=== PATIENT | male | born 1940 | race Caucasian/White ===

== ENCOUNTER 2022-01-27 06:47 | Emergency (ER) | payer MEDICARE, BC ==
--- NOTE | 2022-01-27 07:19 | ERPHSYRPT ---
- History of Present Illness Time Seen by Provider: 01/27/22 07:19 Historian: patient, family Exam Limitations: no limitations Physician History: This is an 81-year-old obese white male patient of Dr. Rivera who for the last several weeks has had midline abdominal pain from the epigastrium to the infraumbilical region. It does not radiate into his back. He states that the pain is essentially midline. Intermittently, he has had this pain over the several weeks and intermittently there is been nauseated associated with it. Yesterday he had 2 episodes of vomiting. Patient has not had any fever. He denies shortness of breath. He denies chest pain. He does not have history of diarrhea with this pain. Patient's last colonoscopy was approximately 10 years ago. Patient has a history of hypertension, elevated cholesterol. He has no history of abdominal surgeries of any kind. Timing/Duration: week(s) (Several weeks) Activities at Onset: none Quality: sharpness, stabbing Abdominal Pain Onset Location: other Pain Radiation: no radiation (Midline) Severity of Pain-Max: moderate Severity of Pain-Current: moderate Modifying Factors: Improves With: vomiting (2 times yesterday) Associated Symptoms: vomiting (2 times yesterday) Previous symptoms: no prior history Allergies/Adverse Reactions: No Known Drug Allergies Allergy (Verified 01/27/22 07:30) Home Medications: Amlodipine Besylate 2.5 mg PO DAILY 01/27/22 [History] Bumetanide 2 mg PO BID 01/27/22 [History] Carvedilol 12.5 mg [Coreg 12.5 mg] 12.5 mg PO BID 01/27/22 [History] Dapagliflozin Propanediol [Farxiga] 5 mg PO DAILY 01/27/22 [History] Potassium Chloride 20 meq PO DAILY 01/27/22 [History] Ropinirole HCl 1 mg PO HS 01/27/22 [History] Rosuvastatin Calcium 20 mg PO DAILY 01/27/22 [History] Sacubitril/Valsartan [Entresto 24 mg-26 mg Tablet] 1 tab PO BID 01/27/22 [History] Zolpidem Tartrate 10 mg [Ambien 10 MG] 10 mg PO HS 01/27/22 [History] Travel Risk - International Travel Have you traveled outside of the country in past 3 weeks: No - Coronavirus Screening Are you exhibiting any of the following symptoms?: No Close contact with a COVID-19 positive Pt in past 14-21 Days: No - Review of Systems Constitutional: No Symptoms Eyes: No Symptoms Ears, Nose, & Throat: No Symptoms Respiratory: No Symptoms Cardiac: No Symptoms Abdominal/Gastrointestinal: Abdominal Pain, Nausea, Vomiting, No Diarrhea, No Constipation Genitourinary Symptoms: No Symptoms Musculoskeletal: No Symptoms Skin: No Symptoms Neurological: No Symptoms Psychological: No Symptoms Endocrine: No Symptoms Hematologic/Lymphatic: No Symptoms Immunological/Allergic: No Symptoms All Other Systems: Reviewed and Negative - Past Medical History Pertinent Past Medical History: Yes - Past Surgical History Past Surgical History: No - Nursing Vital Signs Nursing Vital Signs: Initial Vital Signs Temperature 96.3 F 01/27/22 07:13 Pulse Rate 70 01/27/22 07:13 Respiratory Rate 15 01/27/22 07:13 Blood Pressure 155/70 01/27/22 07:13 O2 Sat by Pulse Oximetry 100 01/27/22 07:13 Pain Scale Pain Intensity 8 - Physical Exam General Appearance: no apparent distress, alert, anxiety, obese Eye Exam: PERRL/EOMI, eyes nml inspection Ears, Nose, Throat Exam: normal ENT inspection, moist mucous membranes Neck Exam: normal inspection, non-tender, supple, full range of motion Respiratory Exam: normal breath sounds, lungs clear, airway intact, No chest tenderness, No respiratory distress Cardiovascular Exam: regular rate/rhythm, normal heart sounds, normal peripheral pulses Gastrointestinal/Abdomen Exam: soft, normal bowel sounds, tenderness, guarding (Midline abdomen), No rebound Rectal Exam: not done Back Exam: normal inspection, normal range of motion, No CVA tenderness, No vertebral tenderness Extremity Exam: normal inspection, normal range of motion, pelvis stable Neurologic Exam: alert, oriented x 3, cooperative, feather shaper II-XII nml as tested, normal mood/affect, nml cerebellar function, nml station & gait, sensation nml Skin Exam: normal color, warm, dry Lymphatic Exam: No adenopathy SpO2 Interpretation: normal O2 Delivery: Room Air Ordered Tests: Active Orders 24 hr Category Date Time Status IV Insertion STAT Care 01/27/22 07:37 Active ABDOMEN AND PELVIS W/0 CONTRAS [CT] Stat Exams 01/27/22 07:38 Completed AMYLASE Stat Lab 01/27/22 07:54 Completed CBC W DIFF Stat Lab 01/27/22 07:54 Completed CMP Stat Lab 01/27/22 07:54 Completed LIPASE Stat Lab 01/27/22 07:54 Completed Lactic Acid Stat Lab 01/27/22 07:37 Completed UA W/RFX CULTURE Stat Lab 01/27/22 07:54 Completed Medication Summary Generic Name Dose Route Start Last Admin Trade Name Freq PRN Reason Stop Dose Admin Sodium Chloride 1,000 mls @ 100 mls/hr 01/27/22 07:45 01/27/22 08:10 Sodium Chloride 0.9% 1000 Ml IV 02/26/22 07:44 100 mls/hr .Q10H KYRA Administration Discontinued Medications Generic Name Dose Route Start Last Admin Trade Name Freq PRN Reason Stop Dose Admin Hydromorphone HCl 1 mg 01/27/22 08:13 01/27/22 08:33 Hydromorphone 1 Mg/1ml Inj 1 Mg/Ml Syringe IV 01/27/22 08:14 1 mg STAT ONE Administration Hydromorphone HCl Confirm 01/27/22 08:31 Hydromorphone 1 Mg/1ml Inj 1 Mg/Ml Syringe Administered 01/27/22 08:32 Dose 1 mg .ROUTE .STK-MED ONE Ondansetron HCl 4 mg 01/27/22 07:37 01/27/22 08:09 Ondansetron Hcl 4 Mg/2 Ml Vial IV 01/27/22 07:38 4 mg STAT ONE Administration Ondansetron HCl Confirm 01/27/22 08:09 Ondansetron Hcl 4 Mg/2 Ml Vial Administered 01/27/22 08:10 Dose 4 mg .ROUTE .STK-MED ONE Lab/Rad Data: Laboratory Result Diagrams 01/27/22 07:54 01/27/22 07:54 Laboratory Results 01/27/22 01/27/22 01/27/22 Range/Units 07:54 07:54 07:54 WBC 15.0 H (4.0-10.5) x10^3/uL RBC 4.15 (4.1-5.6) x10^6/uL Hgb 12.7 (12.5-18.0) g/dL Hct 39.0 L (42-50) % MCV 94.0 (78-100) fL MCH 30.6 (26-32) pg MCHC 32.6 (32-36) g/dL RDW 13.2 (11.5-14.0) % Plt Count 245 (150-450) x10^3/uL MPV 9.2 (7.5-11.0) fL Gran % 87.9 H (36.0-66.0) % Immature Gran % (Auto) 0.4 (0.00-0.4) % Nucleat RBC Rel Count 0.0 (0.00-0.1) % Eos # (Auto) 0.11 (0-0.5) x10^3/uL Immature Gran # (Auto) 0.06 H (0.00-0.03) x10^3u/L Absolute Lymphs (auto) 0.88 L (1.0-4.6) x10^3/uL Absolute Monos (auto) 0.69 (0.0-1.3) x10^3/uL Absolute Nucleated RBC 0.00 (0.00-0.01) x10^3u/L Lymphocytes % 5.9 L (24.0-44.0) % Monocytes % 4.6 (0.0-12.0) % Eosinophils % 0.7 (0.00-5.0) % Basophils % 0.5 (0.0-0.4) % Absolute Granulocytes 13.21 H (1.4-6.9) x10^3/uL Basophils # 0.07 (0-0.4) x10^3/uL Sodium 138 (137-145) mmol/L Potassium 3.8 (3.5-5.1) mmol/L Chloride 103 (98-107) mmol/L Carbon Dioxide 21 L (22-30) mmol/L Anion Gap 17.6 H (5-15) MEQ/L BUN 54 H (9-20) mg/dL Creatinine 2.20 H (0.66-1.25) mg/dL Estimated GFR 30.8 ML/MIN Glucose 224 H (74-106) mg/dL Lactic Acid (0.4-2.0) Calcium 9.4 (8.4-10.2) mg/dL Total Bilirubin 1.20 (0.2-1.3) mg/dL AST 30 (17-59) U/L ALT 17 (0-50) U/L Alkaline Phosphatase 103 (38-126) U/L Serum Total Protein 7.3 (6.3-8.2) g/dL Albumin 4.3 (3.5-5.0) g/dL Amylase 100 (30-110) U/L Lipase 137 (23-300) U/L Urinalys Dipstick Clnc MAIN LAB Urine Color YELLOW (YELLOW) Urine Appearance CLEAR (CLEAR) Urine pH 5.5 (5-6) Ur Specific [place] 1.015 (1.005-1.025) POC Urine Protein Conf NEGATIVE (Negative) Urine Ketones NEGATIVE (NEGATIVE) Urine Nitrite NEGATIVE (NEGATIVE) Urine Bilirubin NEGATIVE (NEGATIVE) Urine Urobilinogen 0.2 (0-1) mg/dL Urine Leukocytes NEGATIVE (NEGATIVE) Urine WBC (Auto) NONE (0-5) /HPF Urine RBC (Auto) NONE (0-2) /HPF U Epithel Cells (Auto) NONE (FEW) /HPF Urine Bacteria (Auto) NONE (NEGATIVE) /HPF Urine RBC TRACE-LYSED (0-5) Omkar/ul Urine Mucus (Auto) SLIGHT (NEGATIVE) /HPF Ur Culture Indicated? NO Urine Glucose 500 (NEGATIVE) mg/dL 01/27/22 Range/Units 07:37 WBC (4.0-10.5) x10^3/uL RBC (4.1-5.6) x10^6/uL Hgb (12.5-18.0) g/dL Hct (42-50) % MCV (78-100) fL MCH (26-32) pg MCHC (32-36) g/dL RDW (11.5-14.0) % Plt Count (150-450) x10^3/uL MPV (7.5-11.0) fL Gran % (36.0-66.0) % Immature Gran % (Auto) (0.00-0.4) % Nucleat RBC Rel Count (0.00-0.1) % Eos # (Auto) (0-0.5) x10^3/uL Immature Gran # (Auto) (0.00-0.03) x10^3u/L Absolute Lymphs (auto) (1.0-4.6) x10^3/uL Absolute Monos (auto) (0.0-1.3) x10^3/uL Absolute Nucleated RBC (0.00-0.01) x10^3u/L Lymphocytes % (24.0-44.0) % Monocytes % (0.0-12.0) % Eosinophils % (0.00-5.0) % Basophils % (0.0-0.4) % Absolute Granulocytes (1.4-6.9) x10^3/uL Basophils # (0-0.4) x10^3/uL Sodium (137-145) mmol/L Potassium (3.5-5.1) mmol/L Chloride (98-107) mmol/L Carbon Dioxide (22-30) mmol/L Anion Gap (5-15) MEQ/L BUN (9-20) mg/dL Creatinine (0.66-1.25) mg/dL Estimated GFR ML/MIN Glucose (74-106) mg/dL Lactic Acid 1.2 (0.4-2.0) Calcium (8.4-10.2) mg/dL Total Bilirubin (0.2-1.3) mg/dL AST (17-59) U/L ALT (0-50) U/L Alkaline Phosphatase (38-126) U/L Serum Total Protein (6.3-8.2) g/dL Albumin (3.5-5.0) g/dL Amylase (30-110) U/L Lipase (23-300) U/L Urinalys Dipstick Clnc Urine Color (YELLOW) Urine Appearance (CLEAR) Urine pH (5-6) Ur Specific [place] (1.005-1.025) POC Urine Protein Conf (Negative) Urine Ketones (NEGATIVE) Urine Nitrite (NEGATIVE) Urine Bilirubin (NEGATIVE) Urine Urobilinogen (0-1) mg/dL Urine Leukocytes (NEGATIVE) Urine WBC (Auto) (0-5) /HPF Urine RBC (Auto) (0-2) /HPF U Epithel Cells (Auto) (FEW) /HPF Urine Bacteria (Auto) (NEGATIVE) /HPF Urine RBC (0-5) Omkar/ul Urine Mucus (Auto) (NEGATIVE) /HPF Ur Culture Indicated? Urine Glucose (NEGATIVE) mg/dL - Progress Progress: improved, pain not gone completely, re-examined Progress Note: 01/27/22 08:56 CAT scan of the abdomen pelvis without contrast shows a distended gallbladder with tiny gallstones/gravel. Indeterminate 2.5 x 4.0 cm left pelvic calcified soft tissue mass. Mild diffuse scattered vascular calcifications. No abdominal aortic aneurysm. Counseled pt/family regarding: lab results, diagnosis, need for follow-up, rad results - Departure Departure Disposition: Home Clinical Impression: Abdominal pain, Leukocytosis Condition: Stable Critical Care Time: No Referrals: LÓPEZ RIVERA [Primary Care Provider] - Follow up/PCP as directed Additional Instructions: Drink plenty of fluids. Take your medication as prescribed. Follow-up with Dr. Rivera for further evaluation and management including colonoscopy if indicated. Prescriptions: Ondansetron ODT 4 MG [Zofran Odt 4 mg] 4 mg PO Q6H PRN PRN #10 tablet PRN Reason: Vomiting Hydrocodone/APAP 5/325 [Lambert 5/325 mg] 1 each PO Q12H PRN PRN #6 tablet MDD 2 PRN Reason: Pain Ciprofloxacin [Cipro 500 MG] 500 mg PO BID #14 tablet Metronidazole 500 mg [Flagyl 500 MG] 500 mg PO TID #21 tablet
[2022-01-27] MEDS ORDERED: Zofran 4 MG/2 ML VIAL IV ONE (07:37)
[2022-01-27] MEDS ORDERED: Sodium Chloride 0.9% 1000 ML 1,000 ML IV SCH (07:45)
[2022-01-27 07:56] LABS: Absolute Neutrophil Ct (ANC) 13.21 x10^3/uL (1.4-6.9); Basophil (Absolute #) 0.07 x10^3/uL (0-0.4); Eosinophil % 0.7 % (0.00-5.0); Eosinophil (Absolute #) 0.11 x10^3/uL (0-0.5); Hemoglobin 12.7 g/dL (12.5-18.0); Lymphocyte (Absolute #) 0.88 x10^3/uL (1.0-4.6); Lymphocytes % 5.9 % (24.0-44.0); Mean Corpuscular Hemoglobin 30.6 pg (26-32); Mean Corpuscular Hgb Concent. 32.6 g/dL (32-36); Mean Platelet Volume 9.2 fL (7.5-11.0); Monocyte (Absolute #) 0.69 x10^3/uL (0.0-1.3); Monocytes % 4.6 % (0.0-12.0); Neutrophil % 87.9 % (36.0-66.0); Platelet Count 245 x10^3/uL (150-450); Red Blood Count 4.15 x10^6/uL (4.1-5.6); Red Cell Distribution Width 13.2 % (11.5-14.0)
[2022-01-27 08:03] LABS: Appearance CLEAR (CLEAR); Bilirubin NEGATIVE (NEGATIVE); Dipstick done @ ? MAIN LAB; Glucose 500 mg/dL (NEGATIVE); Ketones NEGATIVE (NEGATIVE); Nitrite NEGATIVE (NEGATIVE); Ph 5.5 (5-6); Protein,Urine Dip NEGATIVE (Negative); RBC TRACE-LYSED Ery/ul (0-5); Specific Gravity 1.015 (1.005-1.025); Urobilinogen 0.2 mg/dL (0-1)
[2022-01-27 08:05] LABS: Mucus SLIGHT /HPF (NEGATIVE)
[2022-01-27 08:06] LABS: Urine Cultured Indicated? NO
[2022-01-27] MEDS ORDERED: Zofran 4 MG/2 ML VIAL ONE (08:09)
[2022-01-27] MEDS ORDERED: Sodium Chloride 0.9% 1000 ML 1,000 ML ONE (08:09)
[2022-01-27] MEDS ORDERED: Hydromorphone 1 mg/ml Injection IV ONE (08:13)
[2022-01-27] MEDS ORDERED: Hydromorphone 1 mg/ml Injection ONE (08:31)
[2022-01-27 08:34] LABS: ALBUMIN 4.3 g/dL (3.5-5.0); ANION GAP 17.6 MEQ/L (5-15); BILIRUBIN,TOTAL 1.2 mg/dL (0.2-1.3); Calcium 9.4 mg/dL (8.4-10.2); Creatinine 1 2.2 mg/dL (0.66-1.25); EST GLOMERULAR FILTRATION RATE 30.8 ML/MIN; Potassium 3.8 mmol/L (3.5-5.1); Total Protein 7.3 g/dL (6.3-8.2)
[2022-01-27 08:42] VITALS: PULSE 67
--- NOTE | 2022-01-27 08:43 | XRAY ---
Indication: Abdomen and right hip pain following fall. Multiple contiguous axial images obtained through the abdomen and pelvis without contrast. Comparison: None Lung bases demonstrates scattered fibrosis/scarring and and a few calcified granulomas. Heart is not enlarged. Small distal paraesophageal calcified nodes. 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 Left pelvic inlet demonstrates a indeterminant 2.5 x 4.0 cm calcified soft tissue mass. Noncontrasted stomach and bowel loops appear nonobstructed. Scattered descending and sigmoid diverticulosis without diverticulitis. No free fluid/air. Gallbladder distended with tiny gallstones/gravel in the dependent portion. Tiny hepatic/splenic calcified granulomas and 2 left renal exophytic cysts largest 1.3 cm. Remaining liver, gallbladder, pancreas, spleen, adrenal glands, kidneys ureters, and bladder are unremarkable for noncontrast exam. Mild diffuse scattered vascular calcifications. No AAA. Osseous structures intact with osteopenia and moderate/advanced multilevel thoracolumbar degenerative spondylosis. Impression: 1. 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 2. Distended gallbladder with tiny gallstones/gravel. Sonogram may yield further information if clinically warranted. 3. Indeterminant 2.5 x 4.0 cm left pelvic calcified soft tissue mass. Outside comparison studies recommended if available. 4. Chronic findings including pulmonary fibrosis/scarring, colonic diverticulosis, left renal cysts, chronic bony findings, and old granulomatous disease.
[2022-01-27 09:13] VITALS: BP 147/65; O2SAT 95
== END 2022-01-27 09:25 | disposition home or self-care (01) ==
LOC: ED 06:47
DX: R10.13 Epigastric pain (principal); R10.33 Periumbilical pain; D72.829 Elevated white blood cell count, unspecified; R11.2 Nausea with vomiting, unspecified; I10 Essential (primary) hypertension; E78.5 Hyperlipidemia, unspecified; Z79.899 Other long term (current) drug therapy; Z79.891 Long term (current) use of opiate analgesic
CPT/HCPCS: 36415; 74176; 80053; 81015; 82150; 83605; 83690; 85025; 96374; 96375; 99284; J1170; J2405

== ENCOUNTER 2022-02-14 05:53 | Day surgery (SDC) | payer MEDICARE, BC ==
[2022-02-14] MEDS ORDERED: Lactated Ringers 1,000 ML IV SCH (06:00)
[2022-02-14] MEDS ORDERED: DIPRIVAN 200 MG/20 ML IV ONE (08:09)
[2022-02-14 08:53] VITALS: O2SAT 98
[2022-02-14 08:58] VITALS: BP 118/53; PULSE 77
--- NOTE | 2022-02-14 12:54 | OP ---
SURGERY DATE/TIME: 02/14/2022 0810 PREOPERATIVE DIAGNOSIS: Abdominal pain and diarrhea. POSTOPERATIVE DIAGNOSIS: Multiple small colon polyps. PROCEDURE: Colonoscopy with hot snare polypectomy and cold forceps biopsy. SURGEON: Dr. Vasyl Rivera. ANESTHESIA: MAC. Medications given by anesthesia department. HISTORY: The patient is an 81-year-old white male patient presenting now for colonoscopy. He reports he has been having abdominal pain and diarrhea. He feels it is likely secondary to the tainted peanut butter and he is actually getting better now. The patient was felt to need to have endoscopic evaluation. He was appraised of the risks of the procedure including the risk of perforation, phlebitis, untoward reaction to medication, bleeding and missed lesions. The patient verbalized his understanding and desired to have the procedure performed. DESCRIPTION OF PROCEDURE: The patient was given the medications by the anesthesia department. He had continuous pulse oximetry, ECG monitoring, intermittent blood pressure monitoring during the examination. He was placed in the left lateral decubitus position. A digital rectal examination was performed and revealed normal anal sphincter tone, no masses and normal prostate. The flexible Olympus pediatric colonoscope was used to intubate the rectum. A view of the colon was developed sequentially to the cecum. Upon insertion and withdrawal is noted multiple small polyps noted through the colon in the ascending and descending colon. These were removed using a combination of hot polypectomy snare and cold forceps biopsies. The scope was removed from the patient who tolerated the procedure well and was sent back to OP recovery in good condition. The prep was noted to be fair to good.
== END 2022-02-14 09:04 | disposition home or self-care (01) ==
LOC: SDC 05:53
PROVIDERS: ATTEND Family Medicine
DX: R10.84 Generalized abdominal pain (principal); D12.2 Benign neoplasm of ascending colon; D12.4 Benign neoplasm of descending colon; R19.7 Diarrhea, unspecified; E11.9 Type 2 diabetes mellitus without complications
CPT/HCPCS: 82947; 99100; J2704

== ENCOUNTER 2022-08-17 08:00 | Day surgery (SDC) | payer MEDICARE, BC ==
[2022-08-17] MEDS ORDERED: Depo-Medrol 40 MG/ML IM ONE (08:01)
[2022-08-17] MEDS ORDERED: BUPIVACAINE 0.5% VIAL IJ ONE (08:01)
[2022-08-17] MEDS ORDERED: XYLOCAINE-MPF 1% 5ML SDV IJ ONE (08:01)
--- NOTE | 2022-08-17 11:06 | XRAY ---
Indication: Bilateral greater trochanter bursa injection. Intraoperative fluoroscopy provided for 20 seconds. 2 digital spot image submitted for interpretation demonstrates needle tip projecting lateral to the left and right greater trochanters. Small amount of contrast injected for both needle tip placement. Correlate with intraoperative findings/report. Incidental bilateral total hip arthroplasty.
--- NOTE | 2022-08-17 11:58 | XRAY ---
20 seconds of fluoroscopy was used in surgery for a bilateral greater trochanteric bursa injection.
== END 2022-08-17 09:55 | disposition home or self-care (01) ==
LOC: SDC-PAIN 08:00
PROVIDERS: ATTEND Psychiatry & Neurology Pain Medicine
DX: M70.62 Trochanteric bursitis, left hip (principal); M70.61 Trochanteric bursitis, right hip; E11.9 Type 2 diabetes mellitus without complications; Z79.899 Other long term (current) drug therapy
CPT/HCPCS: 20610; 73521; 77002; 82947; J1030; Q9966

== ENCOUNTER 2022-09-14 10:22 | Day surgery (SDC) | payer MEDICARE, BC ==
[2022-09-14] MEDS ORDERED: Depo-Medrol 40 MG/ML IM ONE (10:23)
[2022-09-14] MEDS ORDERED: Sodium Chloride 0.9(Preservative Free) 10 ML IJ ONE (10:23)
[2022-09-14] MEDS ORDERED: LIDOCAINE HCL 1% 50 MG/5 ML VL PF IJ ONE (10:23)
--- NOTE | 2022-09-14 14:38 | XRAY ---
Indication: Right L4-S1 transforaminal KYM. Intraoperative fluoroscopy provided for 1 minute 16 seconds. 8 digital spot image submitted for interpretation demonstrates posterior needle tips projecting over the expected right L4 and L5 nerve roots. Small amount of contrast injected for needle tip placement. Correlate with intraoperative findings/report.
--- NOTE | 2022-09-14 14:56 | XRAY ---
1 minute 16 seconds of fluoroscopy was used in surgery for a right L4-S1 transforaminal KYM.
== END 2022-09-14 13:00 | disposition home or self-care (01) ==
LOC: SDC-PAIN 10:22
PROVIDERS: ATTEND Psychiatry & Neurology Pain Medicine
DX: M54.16 Radiculopathy, lumbar region (principal); E11.9 Type 2 diabetes mellitus without complications; Z79.899 Other long term (current) drug therapy
CPT/HCPCS: 64483; 64484; 72100; 77003; 82947; J1030; J2001; Q9966

== ENCOUNTER 2022-11-09 10:22 | Day surgery (SDC) | payer MEDICARE, BC ==
[2022-11-09] MEDS ORDERED: LIDOCAINE HCL 1% 50 MG/5 ML VL PF IJ ONE (10:23)
[2022-11-09] MEDS ORDERED: Sodium Chloride 0.9(Preservative Free) 10 ML IJ ONE (10:23)
[2022-11-09] MEDS ORDERED: Depo-Medrol 40 MG/ML IM ONE (10:23)
--- NOTE | 2022-11-09 12:35 | XRAY ---
Indication: Right L4-S1 transforaminal KYM. Intraoperative fluoroscopy provided for 48 seconds. 6 digital spot image submitted for interpretation demonstrates posterior needle tips projecting over the expected right L4 and L5 nerve roots. Small amount of contrast injected for needle tip placement. Correlate with intraoperative findings/report.
--- NOTE | 2022-11-09 12:37 | XRAY ---
48 seconds of fluoroscopy was used in surgery for a right L4-S1 transforaminal KYM.
[2022-11-09] MEDS ORDERED: Lactated Ringers 1,000 ML IV ONE (14:18)
== END 2022-11-09 12:09 | disposition home or self-care (01) ==
LOC: SDC-PAIN 10:22
PROVIDERS: ATTEND Psychiatry & Neurology Pain Medicine
DX: M54.16 Radiculopathy, lumbar region (principal); E11.9 Type 2 diabetes mellitus without complications; Z79.899 Other long term (current) drug therapy
CPT/HCPCS: 64483; 64484; 72100; 77003; 82947; J1030; J2001; Q9966

== ENCOUNTER 2023-01-04 13:57 | Day surgery (SDC) | payer MEDICARE, BC ==
[2023-01-04] MEDS ORDERED: LIDOCAINE HCL 1% 50 MG/5 ML VL PF IJ ONE (13:58)
[2023-01-04] MEDS ORDERED: Depo-Medrol 40 MG/ML IM ONE (13:58)
[2023-01-04] MEDS ORDERED: BUPIVACAINE 0.5% VIAL IJ ONE (13:58)
--- NOTE | 2023-01-04 17:10 | XRAY ---
Indication: Right L3-L5 transforaminal KYM. Intraoperative fluoroscopy provided for 50 seconds. 7 digital spot image submitted for interpretation demonstrates posterior needle tips projecting over the expected right L3 and L4 nerve roots. Small amount of contrast injected for needle tip placement. Correlate with intraoperative findings/report.
--- NOTE | 2023-01-04 17:12 | XRAY ---
50 seconds of fluoroscopy was used in surgery for a right L3-L5 transforaminal KYM.
== END 2023-01-04 16:40 | disposition home or self-care (01) ==
LOC: SDC-PAIN 13:57
PROVIDERS: ATTEND Psychiatry & Neurology Pain Medicine
DX: M54.16 Radiculopathy, lumbar region (principal); E11.9 Type 2 diabetes mellitus without complications; Z79.899 Other long term (current) drug therapy
CPT/HCPCS: 64483; 64484; 72100; 77003; 82947; J1030; J2001; Q9966

== ENCOUNTER 2023-05-03 06:54 | Day surgery (SDC) | payer MEDICARE, BC ==
[2023-05-03] MEDS ORDERED: Depo-Medrol 40 MG/ML IM ONE (06:55)
[2023-05-03] MEDS ORDERED: LIDOCAINE HCL 1% 50 MG/5 ML VL PF IJ ONE (06:55)
[2023-05-03] MEDS ORDERED: BUPIVACAINE 0.5% VIAL IJ ONE (06:55)
--- NOTE | 2023-05-03 10:26 | XRAY ---
Indication: Bilateral SI joint injection. Intraoperative fluoroscopy provided for 20 seconds. 5 digital spot images submitted for interpretation demonstrate posterior needle tip projecting over the expected left and right SI joint. Correlate with intraoperative findings/report. Incidental incompletely visualized bilateral hip arthroplasty.
--- NOTE | 2023-05-03 11:53 | XRAY ---
20 seconds of fluoroscopy was used in surgery for a bilateral sacroiliac joint injection.
== END 2023-05-03 09:15 | disposition home or self-care (01) ==
LOC: SDC-PAIN 06:54
PROVIDERS: ATTEND Psychiatry & Neurology Pain Medicine
DX: M46.1 Sacroiliitis, not elsewhere classified (principal); E11.9 Type 2 diabetes mellitus without complications; Z79.899 Other long term (current) drug therapy
CPT/HCPCS: 27096; 72202; 77002; 82947; G0260; J1030; J2001

== ENCOUNTER 2023-07-12 15:21 | Day surgery (SDC) | payer MEDICARE, BC ==
[2023-07-12] MEDS ORDERED: Depo-Medrol 40 MG/ML IM ONE (15:22)
[2023-07-12] MEDS ORDERED: BUPIVACAINE 0.5% VIAL IJ ONE (15:22)
[2023-07-12] MEDS ORDERED: LIDOCAINE HCL 1% 50 MG/5 ML VL PF IJ ONE (15:22)
--- NOTE | 2023-07-12 19:31 | XRAY ---
Indication: Right shoulder and subacromial bursa injection. Intraoperative fluoroscopy provided for 35 seconds. 3 digital spot image submitted for interpretation demonstrates needle tip projecting over the right glenohumeral joint superiorly. Second needle tip subacromial. Small amount of contrast injected for both needle tip placement. Correlate with intraoperative findings/report. Incidental incompletely visualized right pacemaker.
--- NOTE | 2023-07-13 09:43 | XRAY ---
35 seconds of fluoroscopy was used in surgery for a right intra-articular shoulder and subacromial bursa injection.
== END 2023-07-12 17:54 | disposition home or self-care (01) ==
LOC: SDC-PAIN 15:21
PROVIDERS: ATTEND Psychiatry & Neurology Pain Medicine
DX: M19.011 Primary osteoarthritis, right shoulder (principal); M75.51 Bursitis of right shoulder; E11.9 Type 2 diabetes mellitus without complications; Z79.899 Other long term (current) drug therapy
CPT/HCPCS: 20610; 73030; 77002; 82947; J1030; J2001; Q9966

== ENCOUNTER 2023-08-30 12:33 | Emergency (ER) | payer MEDICARE, BC ==
[2023-08-30 12:59] VITALS: TEMP 98.2
[2023-08-30 13:08] LABS: BASOPHIL % 0.7 % (0.0-0.4); Basophil (Absolute #) 0.06 x10^3/uL (0-0.4); Eosinophil % 2.9 % (0.00-5.0); Eosinophil (Absolute #) 0.24 x10^3/uL (0-0.5); Hematocrit 34.5 % (42-50); Hemoglobin 11.2 g/dL (12.5-18.0); IMMATURE GRAN # 0.02 x10^3u/L (0.00-0.03); IMMATURE GRAN % 0.2 % (0.00-0.4); Lymphocyte (Absolute #) 1.11 x10^3/uL (1.0-4.6); Lymphocytes % 13.6 % (24.0-44.0); Mean Cell Volume 94.3 fL (78-100); Mean Corpuscular Hemoglobin 30.6 pg (26-32); Mean Corpuscular Hgb Concent. 32.5 g/dL (32-36); Mean Platelet Volume 9.9 fL (7.5-11.0); Monocyte (Absolute #) 0.64 x10^3/uL (0.0-1.3); Monocytes % 7.8 % (0.0-12.0); Neutrophil % 74.8 % (36.0-66.0); Platelet Count 165 x10^3/uL (150-450); Red Blood Count 3.66 x10^6/uL (4.1-5.6); Red Cell Distribution Width 13.5 % (11.5-14.0); White Blood Count 8.2 x10^3/uL (4.0-10.5)
[2023-08-30 13:23] LABS: INR 1.1 (0.8-3.0); PROTIME 11.9 SECONDS (9.4-12.5)
[2023-08-30 13:31] LABS: ALBUMIN 4.1 g/dL (3.5-5.0); ALKALINE PHOSPHATASE 82 U/L (38-126); CHLORIDE 95 mmol/L (98-107); Calcium 9.4 mg/dL (8.4-10.2); Carbon Dioxide 32 mmol/L (22-30); Creatinine 1 3.63 mg/dL (0.66-1.25); EST GLOMERULAR FILTRATION RATE 16.1 ML/MIN; Glucose 96 mg/dL (74-106); MAGNESIUM 2.2 mg/dL (1.6-2.3); NT PRO BNPII 8240 pg/mL (<300); Potassium 3.8 mmol/L (3.5-5.1); SGOT/AST 25 U/L (17-59); SGPT/ALT 19 U/L (0-50); SODIUM 136 mmol/L (137-145); Total Protein 6.9 g/dL (6.3-8.2)
--- NOTE | 2023-08-30 13:33 | ERPHSYRPT ---
- History of Present Illness Time Seen by Provider: 08/30/23 12:40 Source: patient, family, old records Exam Limitations: no limitations Patient Subjective Stated Complaint: Pt was in outpatient surgery for back injections by Dr Xavier when his blood sugar was found to be in the 40s, after a candy bar blood sugar went up to 120 per JOESPH Box. Patients blood pressure w as also found to be hypotensive, 76/40. Heart rate 60s-110s. Per JOESPH Box when heart rate would get into 110s pts left side of chest would "twitch", multiple ekgs were performed and it was suspected that defibrillator was firing. Pt brought to ED for further workup. Triage Nursing Assessment: Pt alert and oriented x3. Respirations easy/nonlabored. Pt denies any chest pain. Skin w/p/d. Accompanied by daughter. Pt heart rate ranging from 60s-110s, paced. Physician History: This is an 82-year-old white male patient who was brought down to the emergency department from the outpatient surgery department. He was scheduled therefore injections into his back and right shoulder for pain control by pain specialist Dr. Xavier. Patient's blood sugar was in the 40s. He also was noted to have blood pressure 76/40. His heart rate seem to run between 60 and 110 while down in the outpatient surgery clinic. However, the nurse noticed twitching of the left chest every time the heart rate went above 110 bpm. Because of the blood sugar, low blood pressure, and findings of the twitching in the left chest patient was brought to the emergency department for further evaluation management. Patient states that he did not feel any pain. He did not notice any twitching. However, when brought to his attention, he thought maybe there has been this twitching present even before his procedure today. Patient denies chest pain. He denies shortness of breath. Patient's daughter added additional, independent history. Patient's salvage clerk is Dr. Garzon. Dr. Adams placed the patient's pacemaker. Patient has a history of CHF and hypertension. Patient states he is on anticoagulation therapy. He does not recall the name of the medication. However, he stated they did not tell him to stop his anticoagulation therapy. Timing/Duration: today Activities at Onset: none Quality: other (Twitching left chest noted by nurse but not felt by patient per his report) Location: other (Left chest) Chest Pain Radiation: no radiation Severity of Pain-Max: none Severity of Pain-Current: none Nitro Today/Relief: no nitro taken today Aspirin Treatment Today: no aspirin today Associated Symptoms: denies symptoms Prior Chest Pain/Cardiac Workup: cardiac cath, echocardiography Allergies/Adverse Reactions: No Known Drug Allergies Allergy (Verified 08/30/23 12:46) Home Medications: Bumetanide 2 mg PO BID 01/27/22 [History] Carvedilol 12.5 mg [Coreg 12.5 mg] 12.5 mg PO BID 01/27/22 [History] Dapagliflozin Propanediol [Farxiga] 10 mg PO DAILY 01/27/22 [History] Potassium Chloride 20 meq PO DAILY 01/27/22 [History] Ropinirole HCl 1 mg PO HS 01/27/22 [History] Rosuvastatin Calcium 20 mg PO DAILY 01/27/22 [History] Sacubitril/Valsartan [Entresto 24 mg-26 mg Tablet] 1 tab PO BID 01/27/22 [History] Zolpidem Tartrate 10 mg [Ambien 10 MG] 10 mg PO HS 01/27/22 [History] Ascorbic Acid [Vitamin C] 1 tab PO DAILY 02/14/22 [History] Aspirin 81 gm Chew [Baby Aspirin 81 mg Chew] 1 tab PO DAILY 02/14/22 [History] Insulin Aspart [Novolog] 12 unit SQ UD 02/14/22 [History] Insulin Glargine,Hum.rec.anlog [Toujeo Max Solostar] 38 units SQ QHS 02/14/22 [History] Multivit-Min/FA/Lycopen/Lutein [Centrum Silver Tablet] 1 tab PO DAILY 02/14/22 [History] Gabapentin 600 mg PO TID 08/30/23 [History] Hydrocodone/Acetaminophen [Hydrocodone-Acetamin 7.5-325] 1 tab PO TID 08/30/23 [History] metOLazone [Metolazone] See Rx Instructions .ROUTE .COMPLEX 08/30/23 [History] Hx Tetanus, Diphtheria Vaccination/Date Given: Yes Hx Influenza Vaccination/Date Given: Yes Hx Pneumococcal Vaccination/Date Given: No Travel Risk - International Travel Have you traveled outside of the country in past 3 weeks: No - Coronavirus Screening Are you exhibiting any of the following symptoms?: No Close contact with a COVID-19 positive Pt in past 14-21 Days: No - Vaccine Status Have you recieved a Covid-19 vaccination: Yes 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 - Vaccination Dates Date of 2cond Vaccination (if applicable): 11/2020 - Review of Systems Constitutional: No Symptoms Eyes: No Symptoms Ears, Nose, & Throat: No Symptoms Respiratory: No Symptoms Cardiac: No Symptoms Abdominal/Gastrointestinal: No Symptoms Genitourinary Symptoms: No Symptoms Musculoskeletal: No Symptoms Skin: No Symptoms Neurological: No Symptoms Psychological: No Symptoms Endocrine: No Symptoms Hematologic/Lymphatic: No Symptoms Immunological/Allergic: No Symptoms All Other Systems: Reviewed and Negative - Past Medical History Pertinent Past Medical History: Yes Neurological History: No Pertinent History ENT History: No Pertinent History Cardiac History: High Cholesterol, Hypertension Respiratory History: CHF, Sleep Apnea Endocrine Medical History: Diabetes Type II Musculoskeletal History: Osteoarthritis GI Medical History: No Pertinent History History: Renal Disease Psycho-Social History: No Pertinent History Male Reproductive Disorders: No Pertinent History Other Medical History: melanoma, stage 4 kidney failure, - Past Surgical History Past Surgical History: Yes Neuro Surgical History: No Pertinent History Cardiac: Cardiac Stent, Internal Defibrillator, Pacemaker Respiratory: No Pertinent History Gastrointestinal: No Pertinent History Genitourinary: No Pertinent History Musculoskeletal: Joint Replacement Male Surgical History: No Pertinent History Other Surgical History: melanoma removal, kirsten total hips - Social History Smoking Status: Never smoker Exposure to second hand smoke: No Drug Use: none Patient Lives Alone: No - Nursing Vital Signs Nursing Vital Signs: Initial Vital Signs Temperature 98.2 F 08/30/23 12:37 Pulse Rate 112 H 08/30/23 12:37 Respiratory Rate 18 08/30/23 12:37 Blood Pressure 123/55 08/30/23 12:37 O2 Sat by Pulse Oximetry 96 08/30/23 12:37 Pain Scale Pain Intensity 0 - Physical Exam General Appearance: no apparent distress, alert, obese Eye Exam: PERRL/EOMI, eyes nml inspection Ears, Nose, Throat Exam: normal ENT inspection, moist mucous membranes Neck Exam: normal inspection, non-tender, supple, full range of motion Respiratory Exam: normal breath sounds, lungs clear, airway intact, No chest tenderness, No respiratory distress Cardiovascular Exam: regular rate/rhythm, normal heart sounds, normal peripheral pulses Gastrointestinal/Abdomen Exam: soft, normal bowel sounds, No tenderness Rectal Exam: not done Back Exam: normal inspection, normal range of motion, No CVA tenderness, No vertebral tenderness Extremity Exam: normal inspection, normal range of motion, pelvis stable Neurologic Exam: alert, oriented x 3, cooperative, gps field data collector II-XII nml as tested, normal mood/affect, nml cerebellar function, nml station & gait, sensation nml Skin Exam: normal color, warm, dry Lymphatic Exam: No adenopathy SpO2 Interpretation: normal SpO2: 96 O2 Delivery: Room Air - Course Nursing assessment & vital signs reviewed: Yes EKG Interpreted by Me: RATE ([id number]), Other (No evidence of any acute ischemia. EKG electronic readout shows AV dual paced complexes with some inhibition. There is biventricular paced rhythm.) Ordered Tests: Active Orders 24 hr Category Date Time Status EKG-ER Only STAT Care 08/30/23 12:49 Active IV Insertion STAT Care 08/30/23 12:48 Active IV Insertion-2nd Peripheral STAT Care 08/30/23 12:48 Active POCT Glucose Check STAT Care 08/30/23 13:15 Active Pulse Oximetry (ED) STAT Care 08/30/23 12:49 Active CBC W DIFF Stat Lab 08/30/23 12:49 Completed CMP Stat Lab 08/30/23 12:45 Completed MAGNESIUM Stat Lab 08/30/23 12:45 Completed NT PRO BNPII Stat Lab 08/30/23 12:45 Completed POCT GLUCOSE Stat Lab 08/30/23 11:05 Completed POCT GLUCOSE Stat Lab 08/30/23 11:08 Completed POCT GLUCOSE Stat Lab 08/30/23 11:39 Completed POCT GLUCOSE Stat Lab 08/30/23 12:38 Completed POCT GLUCOSE Stat Lab 08/30/23 13:47 Completed PROTIME WITH INR Stat Lab 08/30/23 12:45 Completed TROPONIN Q4H Lab 08/30/23 12:45 Completed TROPONIN Q4H Lab 08/30/23 17:00 Ordered TROPONIN Q4H Lab 08/30/23 21:00 Ordered EKG ONCE RT 08/30/23 12:35 Completed Lab/Rad Data: Laboratory Result Diagrams 08/30/23 12:49 08/30/23 12:45 Laboratory Results 12/20/23 12/20/23 12/20/23 Range/Units 13:47 12:49 12:45 WBC 8.2 (4.0-10.5) x10^3/uL RBC 3.66 L (4.1-5.6) x10^6/uL Hgb 11.2 L (12.5-18.0) g/dL Hct 34.5 L (42-50) % MCV 94.3 (78-100) fL MCH 30.6 (26-32) pg MCHC 32.5 (32-36) g/dL RDW 13.5 (11.5-14.0) % Plt Count 165 (150-450) x10^3/uL MPV 9.9 (7.5-11.0) fL Gran % 74.8 H (36.0-66.0) % Immature Gran % (Auto) 0.2 (0.00-0.4) % Nucleat RBC Rel Count 0.0 (0.00-0.1) % Eos # (Auto) 0.24 (0-0.5) x10^3/uL Immature Gran # (Auto) 0.02 (0.00-0.03) x10^3u/L Absolute Lymphs (auto) 1.11 (1.0-4.6) x10^3/uL Absolute Monos (auto) 0.64 (0.0-1.3) x10^3/uL Absolute Nucleated RBC 0.00 (0.00-0.01) x10^3u/L Lymphocytes % 13.6 L (24.0-44.0) % Monocytes % 7.8 (0.0-12.0) % Eosinophils % 2.9 (0.00-5.0) % Basophils % 0.7 (0.0-0.4) % Absolute Granulocytes 6.10 (1.4-6.9) x10^3/uL Basophils # 0.06 (0-0.4) x10^3/uL PT (9.4-12.5) SECONDS INR (0.8-3.0) Sodium (137-145) mmol/L Potassium (3.5-5.1) mmol/L Chloride (98-107) mmol/L Carbon Dioxide (22-30) mmol/L Anion Gap (5-15) MEQ/L BUN (9-20) mg/dL Creatinine (0.66-1.25) mg/dL Estimated GFR ML/MIN Glucose (74-106) mg/dL POC Glucometer 135 H (50 to 500) mg/dL Calcium (8.4-10.2) mg/dL Magnesium (1.6-2.3) mg/dL Total Bilirubin (0.2-1.3) mg/dL AST (17-59) U/L ALT (0-50) U/L Alkaline Phosphatase (38-126) U/L Troponin I 0.117 H* (0.000-0.034) ng/mL NT-Pro-B Natriuret Pep (<300) pg/mL Serum Total Protein (6.3-8.2) g/dL Albumin (3.5-5.0) g/dL 08/30/23 08/30/23 08/30/23 Range/Units 12:45 12:45 12:38 WBC (4.0-10.5) x10^3/uL RBC (4.1-5.6) x10^6/uL Hgb (12.5-18.0) g/dL Hct (42-50) % MCV (78-100) fL MCH (26-32) pg MCHC (32-36) g/dL RDW (11.5-14.0) % Plt Count (150-450) x10^3/uL MPV (7.5-11.0) fL Gran % (36.0-66.0) % Immature Gran % (Auto) (0.00-0.4) % Nucleat RBC Rel Count (0.00-0.1) % Eos # (Auto) (0-0.5) x10^3/uL Immature Gran # (Auto) (0.00-0.03) x10^3u/L Absolute Lymphs (auto) (1.0-4.6) x10^3/uL Absolute Monos (auto) (0.0-1.3) x10^3/uL Absolute Nucleated RBC (0.00-0.01) x10^3u/L Lymphocytes % (24.0-44.0) % Monocytes % (0.0-12.0) % Eosinophils % (0.00-5.0) % Basophils % (0.0-0.4) % Absolute Granulocytes (1.4-6.9) x10^3/uL Basophils # (0-0.4) x10^3/uL PT 11.9 (9.4-12.5) SECONDS INR 1.10 (0.8-3.0) Sodium 136 L (137-145) mmol/L Potassium 3.8 (3.5-5.1) mmol/L Chloride 95 L (98-107) mmol/L Carbon Dioxide 32 H (22-30) mmol/L Anion Gap 13.0 (5-15) MEQ/L BUN > 120 H (9-20) mg/dL Creatinine 3.63 H (0.66-1.25) mg/dL Estimated GFR 16.1 ML/MIN Glucose 96 (74-106) mg/dL POC Glucometer 92 (50 to 500) mg/dL Calcium 9.4 (8.4-10.2) mg/dL Magnesium 2.2 (1.6-2.3) mg/dL Total Bilirubin 0.80 (0.2-1.3) mg/dL AST 25 (17-59) U/L ALT 19 (0-50) U/L Alkaline Phosphatase 82 (38-126) U/L Troponin I (0.000-0.034) ng/mL NT-Pro-B Natriuret Pep 8240 (<300) pg/mL Serum Total Protein 6.9 (6.3-8.2) g/dL Albumin 4.1 (3.5-5.0) g/dL 08/30/23 08/30/23 08/30/23 Range/Units 11:39 11:08 11:05 WBC (4.0-10.5) x10^3/uL RBC (4.1-5.6) x10^6/uL Hgb (12.5-18.0) g/dL Hct (42-50) % MCV (78-100) fL MCH (26-32) pg MCHC (32-36) g/dL RDW (11.5-14.0) % Plt Count (150-450) x10^3/uL MPV (7.5-11.0) fL Gran % (36.0-66.0) % Immature Gran % (Auto) (0.00-0.4) % Nucleat RBC Rel Count (0.00-0.1) % Eos # (Auto) (0-0.5) x10^3/uL Immature Gran # (Auto) (0.00-0.03) x10^3u/L Absolute Lymphs (auto) (1.0-4.6) x10^3/uL Absolute Monos (auto) (0.0-1.3) x10^3/uL Absolute Nucleated RBC (0.00-0.01) x10^3u/L Lymphocytes % (24.0-44.0) % Monocytes % (0.0-12.0) % Eosinophils % (0.00-5.0) % Basophils % (0.0-0.4) % Absolute Granulocytes (1.4-6.9) x10^3/uL Basophils # (0-0.4) x10^3/uL PT (9.4-12.5) SECONDS INR (0.8-3.0) Sodium (137-145) mmol/L Potassium (3.5-5.1) mmol/L Chloride (98-107) mmol/L Carbon Dioxide (22-30) mmol/L Anion Gap (5-15) MEQ/L BUN (9-20) mg/dL Creatinine (0.66-1.25) mg/dL Estimated GFR ML/MIN Glucose (74-106) mg/dL POC Glucometer 122 H 60 L 46 L* (50 to 500) mg/dL Calcium (8.4-10.2) mg/dL Magnesium (1.6-2.3) mg/dL Total Bilirubin (0.2-1.3) mg/dL AST (17-59) U/L ALT (0-50) U/L Alkaline Phosphatase (38-126) U/L Troponin I (0.000-0.034) ng/mL NT-Pro-B Natriuret Pep (<300) pg/mL Serum Total Protein (6.3-8.2) g/dL Albumin (3.5-5.0) g/dL - Progress Progress: improved, re-examined Air Movement: good Progress Note: 08/30/23 13:31 This patient's medical issue is 1 of moderate to high complexity. The level of complexity in the workup performed is based on review of the patient's past medical history, review of the patient's medication list, review of the patient's drug allergy list, history of present illness and physical findings on examination. Workup includes placement of intravenous line, repeat twelve-lead EKG, troponin level, BNP level, CBC, CMP, magnesium level. 08/30/23 14:26 I reviewed and interpreted the patient's laboratory data results. This patient's troponin is elevated. The remainder of the laboratory data is nonacute or emergent. I spoke with Dr. Maldonado, the emergency room physician [facility]'s emergency department at this time. I reviewed the patient history, presenting complaint, history present illness and physical findings on examination as well as the reports of the laboratory data and twelve-lead EKG results. He accepts the patient in transfer. Blood Culture(s) Obtained: No Antibiotics given: No Counseled pt/family regarding: lab results, diagnosis Medical Desision Making - Independent Historian Additional History obtained from: Child (Patient's daughter) - Diagnostic Testing Diagnostic test were ordered, analyzed, and reviewed by me: Yes - Risk of complications The pt has a high risk of morbidity or mortality based on: Decision regarding hospitilization or escalation of hosp level of care - Departure Departure Disposition: Transfer Clinical Impression: Tachycardia, Hypotension, Hypoglycemia, Elevated troponin Condition: Fair Critical Care Time: Yes Critical Care Time(excluding separately billable procedures): Critical 30-74 mins Referrals: LÓPEZ DE GUZMAN [Primary Care Provider] - Follow up/PCP as directed
[2023-08-30 13:46] LABS: BLOOD UREA NITROGEN > 120 mg/dL (9-20)
[2023-08-30 13:58] VITALS: RESP 16
[2023-08-30 14:44] VITALS: BP 114/69; PULSE 71; O2SAT 95
== END 2023-08-30 14:57 | disposition short-term general hospital (02) ==
LOC: ED 12:33 → EDSTATUS 12:33 → ED 14:57
DX: I95.9 Hypotension, unspecified (principal); R00.0 Tachycardia, unspecified; E11.649 Type 2 diabetes mellitus with hypoglycemia without coma; R79.89 Other specified abnormal findings of blood chemistry; I13.0 Hypertensive heart and chronic kidney disease with heart failure and stage 1 through stage 4 chronic kidney disease, or unspecified chronic kidney disease; I50.9 Heart failure, unspecified; E11.22 Type 2 diabetes mellitus with diabetic chronic kidney disease; N18.4 Chronic kidney disease, stage 4 (severe); E78.5 Hyperlipidemia, unspecified; Z79.4 Long term (current) use of insulin; Z79.891 Long term (current) use of opiate analgesic
CPT/HCPCS: 36000; 36415; 80053; 82947; 83735; 83880; 84484; 85025; 85610; 93005; 94760; 99284; 99291

== ENCOUNTER 2023-09-13 08:46 | Day surgery (SDC) | payer MEDICARE, BC ==
[2023-09-13] MEDS ORDERED: Sodium Chloride 0.9(Preservative Free) 10 ML IJ ONE (08:47)
[2023-09-13] MEDS ORDERED: XYLOCAINE-MPF 1% 5ML SDV IJ ONE (08:47)
[2023-09-13] MEDS ORDERED: Decadron 4 MG INJ IV ONE (08:47)
--- NOTE | 2023-09-13 12:29 | XRAY ---
Indication: Right L4-S1 transforaminal KYM. Intraoperative fluoroscopy provided for 45 seconds. 6 digital spot images submitted for interpretation demonstrates posterior needle tips projecting over the expected right L4 and L5 nerve roots. Small amount of contrast injected for needle tip placement. Correlate with intraoperative findings/report.
--- NOTE | 2023-09-13 12:32 | XRAY ---
45 seconds of fluoroscopy was used in surgery for a right L4-S1 transforaminal KYM.
[2023-09-13] MEDS ORDERED: Lactated Ringers 1,000 ML IV ONE (13:31)
== END 2023-09-13 11:52 | disposition home or self-care (01) ==
LOC: SDC-PAIN 08:46
PROVIDERS: ATTEND Psychiatry & Neurology Pain Medicine
DX: M54.16 Radiculopathy, lumbar region (principal); E11.9 Type 2 diabetes mellitus without complications
CPT/HCPCS: 20553; 64483; 64484; 72100; 77003; 82947; J1100; Q9966

== ENCOUNTER 2023-09-15 16:15 | Inpatient (IN) | payer MEDICARE, BC ==
--- NOTE | 2023-09-15 16:26 | ERPHSYRPT ---
- History of Present Illness Source: patient Exam Limitations: no limitations Timing/Duration: today Severity: moderate Associated Symptoms: nausea, loss of appetite, weakness, No vomiting, No abdominal pain, No shortness of breath, No cough, No chest pain, No headaches Hx Tetanus, Diphtheria Vaccination/Date Given: Yes Hx Influenza Vaccination/Date Given: Yes Hx Pneumococcal Vaccination/Date Given: No <ENRIQUE RIDDLE - Last Filed: 09/15/23 19:03> <HOLDEN FLWOERS - Last Filed: 09/15/23 20:38> - History of Present Illness Time Seen by Provider: 09/15/23 16:25 Physician History: This is a morbidly obese 82-year-old white male patient of Dr. De Guzman who also sees collision estimator Dr. Vela and presents to the emergency department with a potassium level that was drawn this morning of 2.1. Patient has chronic renal failure but is not on dialysis. The labs that were drawn today were drawn for the purpose of meeting his collision estimator next week to discuss being placed on dialysis. Patient is on both Bumex and metolazone as diuretics. He is on potassium chloride supplementation 20 mill equivalents orally twice a day. Patient denies chest pain. He denies shortness of breath. He does have nausea and has body aches. Patient denies vomiting and diarrhea symptoms. He has not had a fever or cough. Patient's magnesium level this morning was measured at 2.6. Patient has a history of chronic renal failure not on dialysis, hyperlipidemia, coronary disease, hypertension and insulin-dependent diabetes. (ENRIQUE RIDDLE) Allergies/Adverse Reactions: No Known Drug Allergies Allergy (Verified 09/15/23 16:23) Home Medications: Bumetanide 4 mg PO DAILY 01/27/22 [History] Carvedilol 12.5 mg [Coreg 12.5 mg] 12.5 mg PO BID 01/27/22 [History] Dapagliflozin Propanediol [Farxiga] 10 mg PO DAILY 01/27/22 [History] Potassium Chloride 20 meq PO BID 01/27/22 [History] Ropinirole HCl 1 mg PO HS 01/27/22 [History] Rosuvastatin Calcium 20 mg PO HS 01/27/22 [History] Zolpidem Tartrate 10 mg [Ambien 10 MG] 10 mg PO HS PRN 01/27/22 [History] Ascorbic Acid [Vitamin C] 1 tab PO DAILY 02/14/22 [History] Insulin Aspart [Novolog] 15 unit SQ UD 02/14/22 [History] Insulin Glargine,Hum.rec.anlog [Toujeo Max Solostar] 45 units SQ QHS 02/14/22 [History] Multivit-Min/FA/Lycopen/Lutein [Centrum Silver Tablet] 1 tab PO DAILY 02/14/22 [History] Gabapentin 600 mg PO TID 08/30/23 [History] Hydrocodone/Acetaminophen [Hydrocodone-Acetamin 7.5-325] 1 tab PO TID 08/30/23 [History] metOLazone [Metolazone] 5 mg PO UD 08/30/23 [History] Bumetanide 2 mg PO LUNCH 09/15/23 [History] Vericiguat [Verquvo] 5 mg PO DAILY 09/15/23 [History] Travel Risk - International Travel Have you traveled outside of the country in past 3 weeks: No - Coronavirus Screening Are you exhibiting any of the following symptoms?: Yes Symptoms: Headaches/Body Aches/Fatigue Close contact with a COVID-19 positive Pt in past 14-21 Days: No - Vaccine Status Have you recieved a Covid-19 vaccination: Yes 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 - Vaccination Dates Date of 2cond Vaccination (if applicable): 11/2020 <ENRIQUE RIDDLE - Last Filed: 09/15/23 19:03> - Review of Systems Constitutional: Weakness Eyes: No Symptoms Ears, Nose, & Throat: No Symptoms Respiratory: No Symptoms Cardiac: No Symptoms Abdominal/Gastrointestinal: Nausea, Appetite Changes, No Abdominal Pain, No Vomiting, No Diarrhea, No Constipation Genitourinary Symptoms: No Symptoms Musculoskeletal: No Symptoms Skin: No Symptoms Neurological: No Symptoms Psychological: No Symptoms Endocrine: No Symptoms Hematologic/Lymphatic: No Symptoms Immunological/Allergic: No Symptoms <ENRIQUE RIDDLE - Last Filed: 09/15/23 19:03> - Past Medical History Pertinent Past Medical History: Yes Neurological History: No Pertinent History ENT History: No Pertinent History Cardiac History: High Cholesterol, Hypertension Respiratory History: CHF, Sleep Apnea Endocrine Medical History: Diabetes Type II Musculoskeletal History: Osteoarthritis GI Medical History: No Pertinent History History: Renal Disease Psycho-Social History: No Pertinent History Male Reproductive Disorders: No Pertinent History Other Medical History: melanoma, stage 4 kidney failure, - Past Surgical History Past Surgical History: Yes Neuro Surgical History: No Pertinent History Cardiac: Cardiac Stent, Internal Defibrillator, Pacemaker Respiratory: No Pertinent History Gastrointestinal: No Pertinent History Genitourinary: No Pertinent History Musculoskeletal: Joint Replacement Male Surgical History: No Pertinent History Other Surgical History: melanoma removal, kirsten total hips - Social History Smoking Status: Never smoker Exposure to second hand smoke: No Drug Use: none Patient Lives Alone: No <ENRIQUE RIDDLE - Last Filed: 09/15/23 19:03> - Physical Exam General Appearance: no apparent distress, alert, anxiety, obese Eye Exam: PERRL/EOMI, eyes nml inspection Ears, Nose, Throat Exam: normal ENT inspection, moist mucous membranes Neck Exam: normal inspection, non-tender, supple, full range of motion Respiratory Exam: normal breath sounds, lungs clear, airway intact, No chest tenderness, No respiratory distress Cardiovascular Exam: regular rate/rhythm, normal heart sounds, normal peripheral pulses Gastrointestinal/Abdomen Exam: soft, normal bowel sounds, No tenderness Rectal Exam: not done Back Exam: normal inspection, normal range of motion, No CVA tenderness, No vert ebral tenderness Extremity Exam: normal inspection, normal range of motion, pelvis stable Neurologic Exam: alert, oriented x 3, cooperative, golf technician II-XII nml as tested, normal mood/affect Skin Exam: normal color, warm, dry Lymphatic Exam: No adenopathy SpO2 Interpretation: normal O2 Delivery: Room Air <ENRIQUE RIDDLE - Last Filed: 09/15/23 19:03> - Nursing Vital Signs Nursing Vital Signs: Initial Vital Signs Temperature 95.9 F 09/15/23 16:23 Pulse Rate 98 H 09/15/23 16:23 Respiratory Rate 20 09/15/23 16:23 Blood Pressure 139/84 09/15/23 16:23 O2 Sat by Pulse Oximetry 98 09/15/23 16:23 Pain Scale Pain Intensity 6 - Course Nursing assessment & vital signs reviewed: Yes <ENRIQUE RIDDLE - Last Filed: 09/15/23 19:03> - Radiology Exams Chest X-ray Interpretation: Interpreted by me, No Pneumonia <HOLDEN FLOWERS - Last Filed: 09/15/23 20:38> Ordered Tests: Active Orders 24 hr Category Date Time Status EKG-ER Only STAT Care 09/15/23 17:14 Active IV Insertion STAT Care 09/15/23 17:14 Active Telemetry q4h Care 09/15/23 17:16 Active CHEST 1 VIEW (PORTABLE) Stat Exams 09/15/23 19:03 Completed BLOOD CULTURE Stat Lab 09/15/23 17:46 Received CBC W DIFF Stat Lab 09/15/23 17:00 Completed CMP Stat Lab 09/15/23 17:00 Completed CULTURE,URINE Stat Lab 09/15/23 17:00 Received MONO SCREEN Stat Lab 09/15/23 17:00 Completed TROPONIN Q4H Lab 09/15/23 17:00 Completed TROPONIN Q4H Lab 09/15/23 21:15 Ordered TROPONIN Q4H Lab 09/16/23 01:15 Ordered UA W/RFX UR CULTURE Stat Lab 09/15/23 17:00 Completed Medication Summary Generic Name Dose Route Start Last Admin Trade Name Freq PRN Reason Stop Dose Admin Sodium Chloride 1,000 mls @ 100 mls/hr 09/15/23 17:15 09/15/23 18:04 Sodium Chloride 0.9% 1000 Ml IV 10/15/23 17:14 100 mls/hr .Q10H KYRA Administration Discontinued Medications Generic Name Dose Route Start Last Admin Trade Name Freq PRN Reason Stop Dose Admin Hydromorphone HCl 1 mg 09/15/23 17:14 09/15/23 18:01 Hydromorphone 1 Mg/1ml Inj IV 09/15/23 17:15 1 mg STAT ONE Administration Hydromorphone HCl Confirm 09/15/23 17:56 Hydromorphone 1 Mg/1ml Inj Administered 09/15/23 17:57 Dose 1 mg .ROUTE .STK-MED ONE Potassium Chloride 20 meq in 100 mls @ 50 mls/hr 09/15/23 17:15 09/15/23 18:08 Potassium Chloride 20 Meq In Water 100ml IV 09/15/23 19:14 50 mls/hr STAT ONE Administration Potassium Chloride Confirm 09/15/23 17:56 Potassium Chloride 20 Meq In Water 100ml Administered 09/15/23 17:57 Dose 100 mls @ ud IV .STK-MED ONE Ondansetron HCl 4 mg 09/15/23 17:14 09/15/23 18:00 Ondansetron Hcl 4 Mg/2 Ml Vial IV 09/15/23 17:15 4 mg STAT ONE Administration Ondansetron HCl Confirm 09/15/23 17:55 Ondansetron Hcl 4 Mg/2 Ml Vial Administered 09/15/23 17:56 Dose 4 mg .ROUTE .STK-MED ONE Potassium Chloride 20 meq 09/15/23 17:15 09/15/23 18:03 Potassium Chloride Tab 10 Meq Tab PO 09/15/23 17:16 20 meq STAT ONE Administration Potassium Chloride Confirm 09/15/23 17:55 Potassium Chloride Tab 10 Meq Tab Administered 09/15/23 17:56 Dose 20 meq PO .STK-MED ONE Lab/Rad Data: Laboratory Result Diagrams 09/15/23 17:00 09/15/23 17:00 Laboratory Results 09/15/23 09/15/23 09/15/23 Range/Units 17:48 17:00 17:00 WBC (4.0-10.5) x10^3/uL RBC (4.1-5.6) x10^6/uL Hgb (12.5-18.0) g/dL Hct (42-50) % MCV (78-100) fL MCH (26-32) pg MCHC (32-36) g/dL RDW (11.5-14.0) % Plt Count (150-450) x10^3/uL MPV (7.5-11.0) fL Gran % (36.0-66.0) % Immature Gran % (Auto) (0.00-0.4) % Nucleat RBC Rel Count (0.00-0.1) % Eos # (Auto) (0-0.5) x10^3/uL Immature Gran # (Auto) (0.00-0.03) x10^3u/L Absolute Lymphs (auto) (1.0-4.6) x10^3/uL Absolute Monos (auto) (0.0-1.3) x10^3/uL Absolute Nucleated RBC (0.00-0.01) x10^3u/L Lymphocytes % (24.0-44.0) % Monocytes % (0.0-12.0) % Eosinophils % (0.00-5.0) % Basophils % (0.0-0.4) % Absolute Granulocytes (1.4-6.9) x10^3/uL Basophils # (0-0.4) x10^3/uL Sodium (137-145) mmol/L Potassium (3.5-5.1) mmol/L Chloride (98-107) mmol/L Carbon Dioxide (22-30) mmol/L Anion Gap (5-15) MEQ/L BUN (9-20) mg/dL Creatinine (0.66-1.25) mg/dL Estimated GFR ML/MIN Glucose (74-106) mg/dL Calcium (8.4-10.2) mg/dL Total Bilirubin (0.2-1.3) mg/dL AST (17-59) U/L ALT (0-50) U/L Alkaline Phosphatase (38-126) U/L Troponin I 0.658 H* (0.000-0.034) ng/mL Serum Total Protein (6.3-8.2) g/dL Albumin (3.5-5.0) g/dL Urine Color (Yellow) Urine Appearance (Clear) Urine pH (4.6-8.0) Ur Specific Benton (1.005-1.030) Urine Protein (Negative) Urine Glucose (UA) (Negative) mg/dL Urine Ketones (Negative) Urine Blood (Negative) Urine Nitrite (Negative) Urine Bilirubin (Negative) Urine Urobilinogen (0.2) mg/dL Ur Leukocyte Esterase (Negative) U Hyaline Cast (Auto) (0-2) /LPF Urine Microscopic RBC (0-5) /HPF Urine Microscopic WBC (0-5) /HPF Ur Epithelial Cells (None Seen) /HPF Urine Bacteria (None Seen) /HPF Urine Culture Reflexed (NO) Monoscreen NEGATIVE (NEGATIVE) Influenza Type A Ag NEGATIVE (NEGATIVE) Influenza Type B Ag NEGATIVE (NEGATIVE) RSV (PCR) NEGATIVE (NEGATIVE) SARS-CoV-2 (PCR) NEGATIVE (NEGATIVE) 09/15/23 09/15/23 09/15/23 Range/Units 17:00 17:00 17:00 WBC 14.8 H (4.0-10.5) x10^3/uL RBC 4.16 (4.1-5.6) x10^6/uL Hgb 13.1 (12.5-18.0) g/dL Hct 37.1 L (42-50) % MCV 89.2 (78-100) fL MCH 31.5 (26-32) pg MCHC 35.3 (32-36) g/dL RDW 12.8 (11.5-14.0) % Plt Count 218 (150-450) x10^3/uL MPV 10.5 (7.5-11.0) fL Gran % 83.8 H (36.0-66.0) % Immature Gran % (Auto) 0.4 (0.00-0.4) % Nucleat RBC Rel Count 0.0 (0.00-0.1) % Eos # (Auto) 0.04 (0-0.5) x10^3/uL Immature Gran # (Auto) 0.06 H (0.00-0.03) x10^3u/L Absolute Lymphs (auto) 1.24 (1.0-4.6) x10^3/uL Absolute Monos (auto) 1.03 (0.0-1.3) x10^3/uL Absolute Nucleated RBC 0.00 (0.00-0.01) x10^3u/L Lymphocytes % 8.4 L (24.0-44.0) % Monocytes % 7.0 (0.0-12.0) % Eosinophils % 0.3 (0.00-5.0) % Basophils % 0.1 (0.0-0.4) % Absolute Granulocytes 12.42 H (1.4-6.9) x10^3/uL Basophils # 0.01 (0-0.4) x10^3/uL Sodium 132 L (137-145) mmol/L Potassium 2.3 L* (3.5-5.1) mmol/L Chloride 84 L (98-107) mmol/L Carbon Dioxide 33 H (22-30) mmol/L Anion Gap 17.6 H (5-15) MEQ/L BUN 157 H (9-20) mg/dL Creatinine 3.28 H (0.66-1.25) mg/dL Estimated GFR 18.2 ML/MIN Glucose 165 H (74-106) mg/dL Calcium 10.1 (8.4-10.2) mg/dL Total Bilirubin 0.90 (0.2-1.3) mg/dL AST 53 (17-59) U/L ALT 34 (0-50) U/L Alkaline Phosphatase 94 (38-126) U/L Troponin I (0.000-0.034) ng/mL Serum Total Protein 8.0 (6.3-8.2) g/dL Albumin 4.7 (3.5-5.0) g/dL Urine Color Yellow (Yellow) Urine Appearance Clear (Clear) Urine pH 6.0 (4.6-8.0) Ur Specific Benton 1.010 (1.005-1.030) Urine Protein Negative (Negative) Urine Glucose (UA) 100 A (Negative) mg/dL Urine Ketones Negative (Negative) Urine Blood Small A (Negative) Urine Nitrite Negative (Negative) Urine Bilirubin Negative (Negative) Urine Urobilinogen 0.2 (0.2) mg/dL Ur Leukocyte Esterase Moderate A (Negative) U Hyaline Cast (Auto) 3-5 A (0-2) /LPF Urine Microscopic RBC 0-2 (0-5) /HPF Urine Microscopic WBC 3-5 (0-5) /HPF Ur Epithelial Cells None Seen (None Seen) /HPF Urine Bacteria None Seen (None Seen) /HPF Urine Culture Reflexed YES (NO) Monoscreen (NEGATIVE) Influenza Type A Ag (NEGATIVE) Influenza Type B Ag (NEGATIVE) RSV (PCR) (NEGATIVE) SARS-CoV-2 (PCR) (NEGATIVE) - Progress Progress: improved, pain not gone completely Counseled pt/family regarding: lab results, diagnosis <ENRIQUE RIDDLE - Last Filed: 09/15/23 19:03> - Progress Will see patient in: other (Spoke with Dr. Tee - obs.) <HOLDEN FLOWERS - Last Filed: 09/15/23 20:38> - Progress Progress Note: 09/15/23 17:45 This patient's medical issue is 1 of moderate to high complexity. The level of complexity in the workup performed is based on review of the patient's past medical history, review of the patient's medication list, review of the patient's drug allergy list, history of present illness and physical findings on examination. The workup includes placement of an intravenous line, infusion of potassium chloride, oral potassium chloride, CBC, CMP, magnesium level, urinalysis, troponin level and twelve-lead EKG. 09/15/23 19:03 I am transferring care of this patient to Dr. Flowers at shift change. He will follow-up on the outstanding laboratory and radiographic study results and make final disposition. The patient and family will sign a DNR. They want to stay here at this facility for further care and management. (ENRIQUE RIDDLE) - Departure Departure Disposition: Observation Critical Care Time: No <ENRIQUE RIDDLE - Last Filed: 09/15/23 19:03> <HOLDEN FLOWERS - Last Filed: 09/15/23 20:38> - Departure Clinical Impression: Hypokalemia, Renal failure Condition: Fair Referrals: LÓPEZ DE GUZMAN [Primary Care Provider] - Follow up/PCP as directed
[2023-09-15] MEDS ORDERED: Hydromorphone 1 mg/ml Injection IV ONE (17:14)
[2023-09-15] MEDS ORDERED: Zofran 4 MG/2 ML VIAL IV ONE (17:14)
[2023-09-15] MEDS ORDERED: POTASSIUM CHLORIDE 20 mEq IN WATER 100ML 20 MEQ/100 ML BAG IV ONE (17:15)
[2023-09-15] MEDS ORDERED: Klor Con PO ONE ×3 (17:15→22:22)
[2023-09-15 17:24] LABS: Absolute Neutrophil Ct (ANC) 12.42 x10^3/uL (1.4-6.9); BASOPHIL % 0.1 % (0.0-0.4); Basophil (Absolute #) 0.01 x10^3/uL (0-0.4); Eosinophil % 0.3 % (0.00-5.0); Eosinophil (Absolute #) 0.04 x10^3/uL (0-0.5); Hematocrit 37.1 % (42-50); Hemoglobin 13.1 g/dL (12.5-18.0); IMMATURE GRAN # 0.06 x10^3u/L (0.00-0.03); IMMATURE GRAN % 0.4 % (0.00-0.4); Lymphocyte (Absolute #) 1.24 x10^3/uL (1.0-4.6); Lymphocytes % 8.4 % (24.0-44.0); Mean Cell Volume 89.2 fL (78-100); Mean Corpuscular Hemoglobin 31.5 pg (26-32); Mean Corpuscular Hgb Concent. 35.3 g/dL (32-36); Mean Platelet Volume 10.5 fL (7.5-11.0); Monocyte (Absolute #) 1.03 x10^3/uL (0.0-1.3); Neutrophil % 83.8 % (36.0-66.0); Platelet Count 218 x10^3/uL (150-450); Red Blood Count 4.16 x10^6/uL (4.1-5.6); Red Cell Distribution Width 12.8 % (11.5-14.0); White Blood Count 14.8 x10^3/uL (4.0-10.5)
[2023-09-15 17:29] LABS: ALBUMIN 4.7 g/dL (3.5-5.0); ANION GAP 17.6 MEQ/L (5-15); BILIRUBIN,TOTAL 0.9 mg/dL (0.2-1.3); Calcium 10.1 mg/dL (8.4-10.2); Creatinine 1 3.28 mg/dL (0.66-1.25); EST GLOMERULAR FILTRATION RATE 18.2 ML/MIN
[2023-09-15 17:34] LABS: Appearance Clear (Clear); Bacteria None Seen /HPF (None Seen); Bilirubin Negative (Negative); Blood Small (Negative); Epithelial Cells None Seen /HPF (None Seen); Glucose, Urine 100 mg/dL (Negative); Ketones Negative (Negative); Leukocyte Esterase Moderate (Negative); Nitrite Negative (Negative); Protein,Urine Dip Negative (Negative); RBC 0-2 /HPF (0-5); Urobilinogen 0.2 mg/dL (0.2)
[2023-09-15 17:44] LABS: Potassium 2.3 mmol/L (3.5-5.1)
[2023-09-15 17:45] LABS: ADD URINE CULTURE? YES (NO)
[2023-09-15] MEDS ORDERED: Zofran 4 MG/2 ML VIAL ONE (17:55)
[2023-09-15] MEDS ORDERED: Hydromorphone 1 mg/ml Injection ONE (17:56)
[2023-09-15] MEDS ORDERED: POTASSIUM CHLORIDE 20 mEq IN WATER 100ML 100 ML IV ONE (17:56)
[2023-09-15] MEDS ORDERED: Sodium Chloride 0.9% 1000 ML 1,000 ML ONE (17:56)
[2023-09-15] MEDS: Sodium Chloride 0.9% 1000 ML 1,000 ML IV SCH (18:04)
[2023-09-15 18:30] LABS: INFLUENZA A NEGATIVE (NEGATIVE); INFLUENZA B NEGATIVE (NEGATIVE); RESPIRATORY SYNCTIAL VIRUS NEGATIVE (NEGATIVE); SARS-CoV-2 Xpert Express NEGATIVE (NEGATIVE)
--- NOTE | 2023-09-15 20:17 | XRAY ---
Indication: Leukocytosis. Comparison: February 10, 2022 Portable chest remains hyperinflated and clear. Heart not enlarged again with right pacemaker. Bony thorax intact again with osteopenia and mild degenerative changes. Impression: Continued nonacute chest with chronic features.
[2023-09-15] MEDS ORDERED: Sodium Chloride 0.9% 1000 ML 1,000 ML IV SCH (20:45)
[2023-09-15] MEDS ORDERED: TYLENOL 325 MG PO PRN (21:01)
--- NOTE | 2023-09-15 21:08 | PCM.HP ---
History of Present Illness - Chief Complaint Chief Complaint: renal failure; hypokalemia History of Present Illness: is a 82 year old male with history of DMII, HTN, CAD, CKD 5 here for abnormal labs - renal failure and low K. He has known CKD and is not yet on HD. He sees a trader. Tonight, he has no overt emergent symptom nor complaint. Has bodyache and nausea, but no chest pain, SOB, vomiting, diarrhea, seizure, syncope, dysuria, hematuria, flank pain. ER physician spoke to pt and his family. He is now a DNR and does not want dialysis. Family and pt are aware of the possible outcome. I am seeing the pt via telemedicine. I spoke with pt and his daughter. They did not rule out dialysis if needed. Pt states he would take dialysis if needed. They said they want to get stabilized and go see their trader, Dr Vela, and discussed HD - Review of Systems Constitutional: Fatigue, Malaise Eyes: No Symptoms Ears, Nose, & Throat: No Symptoms Respiratory: No Symptoms Cardiac: No Symptoms Abdominal/Gastrointestinal: Nausea Genitourinary Symptoms: No Symptoms Musculoskeletal: No Symptoms Skin: No Symptoms Neurological: No Symptoms Psychological: No Symptoms Hematologic/Lymphatic: No Symptoms Immunological/Allergic: No Symptoms Medications & Allergies Home Medications: Home Medication List Bumetanide 4 mg PO DAILY 01/27/22 [History Confirmed 09/15/23] Carvedilol 12.5 mg [Coreg 12.5 mg] 12.5 mg PO BID 01/27/22 [History Confirmed 09/15/23] Dapagliflozin Propanediol [Farxiga] 10 mg PO DAILY 01/27/22 [History Confirmed 09/15/23] Potassium Chloride 20 meq PO BID 01/27/22 [History Confirmed 09/15/23] Ropinirole HCl 1 mg PO HS 01/27/22 [History Confirmed 09/15/23] Rosuvastatin Calcium 20 mg PO HS 01/27/22 [History Confirmed 09/15/23] Zolpidem Tartrate 10 mg [Ambien 10 MG] 10 mg PO HS PRN 01/27/22 [History Confirmed 09/15/23] Ascorbic Acid [Vitamin C] 1 tab PO DAILY 02/14/22 [History Confirmed 09/15/23] Insulin Aspart [Novolog] 15 unit SQ UD 02/14/22 [History Confirmed 09/15/23] Insulin Glargine,Hum.rec.anlog [[place] Peguero Solostar] 45 units SQ QHS 02/14/22 [History Confirmed 09/15/23] Multivit-Min/FA/Lycopen/Lutein [Centrum Silver Tablet] 1 tab PO DAILY 02/14/22 [History Confirmed 09/15/23] Gabapentin 600 mg PO TID 08/30/23 [History Confirmed 09/15/23] Hydrocodone/Acetaminophen [Hydrocodone-Acetamin 7.5-325] 1 tab PO TID 08/30/23 [History Confirmed 09/15/23] metOLazone [Metolazone] 5 mg PO UD 08/30/23 [History Confirmed 09/15/23] Bumetanide 2 mg PO LUNCH 09/15/23 [History Confirmed 09/15/23] Vericiguat [Verquvo] 5 mg PO DAILY 09/15/23 [History Confirmed 09/15/23] Allergies/Adverse Reactions: Allergies Allergy/AdvReac Type Severity Reaction Status Date / Time No Known Drug Allergies Allergy Verified 09/15/23 16:23 - Past Medical History Past Medical History: Yes Neurological History: No Pertinent History ENT History: No Pertinent History Cardiac History: High Cholesterol, Hypertension Respiratory History: CHF, Sleep Apnea Endocrine Medical History: Diabetes Type II Musculoskelatal History: Osteoarthritis GI Medical History: No Pertinent History History: Renal Disease Pyscho-Social History: No Pertinent History Male Reproductive Disorders: No Pertinent History Comment: melanoma, stage 4 kidney failure, - Past Surgical History Past Surgical History: Yes Neuro Surgical History: No Pertinent History Cardiac History: Cardiac Stent, Internal Defibrillator, Pacemaker Respiratory Surgery: No Pertinent History GI Surgical History: No Pertinent History Genitourinary Surgical Hx: No Pertinent History Musculskeletal Surgical Hx: Joint Replacement Male Surgical History: No Pertinent History Other Surgical History: melanoma removal, kirsten total hips - Social History Smoking Status: Never smoker Exposure to second hand smoke: No Alcohol: Rarely Drug Use: none Significant Family History: no pertinent family hx - Physical Exam Vital Signs: Vital Signs - 24 hr Temp Pulse Resp BP BP Pulse Ox 09/15/23 20:30 78 18 134/93 97 09/15/23 19:30 68 11 L 129/81 97 09/15/23 19:01 67 14 156/78 100 09/15/23 18:30 91 H 9 L 135/103 99 09/15/23 18:00 88 11 L 140/75 96 09/15/23 17:59 81 19 09/15/23 17:50 77 9 L 09/15/23 17:40 79 10 L 09/15/23 17:32 75 8 L 09/15/23 17:00 67 18 143/90 09/15/23 16:23 95.9 F 98 H 20 139/84 98 General Appearance: no apparent distress Neurologic Exam: alert, oriented x 3, cooperative Eye Exam: PERRL/EOMI, eyes nml inspection Ears, Nose, Throat Exam: normal ENT inspection, pharynx normal, moist mucous membranes Neck Exam: normal inspection, non-tender, supple Respiratory Exam: normal breath sounds, lungs clear Cardiovascular Exam: regular rate/rhythm, normal heart sounds Gastrointestinal/Abdomen Exam: soft, normal bowel sounds Rectal Exam: deferred Back Exam: normal inspection, normal range of motion Extremity Exam: normal inspection Skin Exam: normal color, warm, dry Results - Labs Lab/Micro Results: Lab Results-Last 24 Hours 09/15/23 09/15/23 09/15/23 Range/Units 17:00 17:00 17:00 WBC 14.8 H (4.0-10.5) x10^3/uL RBC 4.16 (4.1-5.6) x10^6/uL Hgb 13.1 (12.5-18.0) g/dL Hct 37.1 L (42-50) % MCV 89.2 (78-100) fL MCH 31.5 (26-32) pg MCHC 35.3 (32-36) g/dL RDW 12.8 (11.5-14.0) % Plt Count 218 (150-450) x10^3/uL MPV 10.5 (7.5-11.0) fL Gran % 83.8 H (36.0-66.0) % Immature Gran % (Auto) 0.4 (0.00-0.4) % Nucleat RBC Rel Count 0.0 (0.00-0.1) % Eos # (Auto) 0.04 (0-0.5) x10^3/uL Immature Gran # (Auto) 0.06 H (0.00-0.03) x10^3u/L Absolute Lymphs (auto) 1.24 (1.0-4.6) x10^3/uL Absolute Monos (auto) 1.03 (0.0-1.3) x10^3/uL Absolute Nucleated RBC 0.00 (0.00-0.01) x10^3u/L Lymphocytes % 8.4 L (24.0-44.0) % Monocytes % 7.0 (0.0-12.0) % Eosinophils % 0.3 (0.00-5.0) % Basophils % 0.1 (0.0-0.4) % Absolute Granulocytes 12.42 H (1.4-6.9) x10^3/uL Basophils # 0.01 (0-0.4) x10^3/uL Sodium 132 L (137-145) mmol/L Potassium 2.3 L* (3.5-5.1) mmol/L Chloride 84 L (98-107) mmol/L Carbon Dioxide 33 H (22-30) mmol/L Anion Gap 17.6 H (5-15) MEQ/L BUN 157 H (9-20) mg/dL Creatinine 3.28 H (0.66-1.25) mg/dL Estimated GFR 18.2 ML/MIN Glucose 165 H (74-106) mg/dL Calcium 10.1 (8.4-10.2) mg/dL Total Bilirubin 0.90 (0.2-1.3) mg/dL AST 53 (17-59) U/L ALT 34 (0-50) U/L Alkaline Phosphatase 94 (38-126) U/L Troponin I (0.000-0.034) ng/mL Serum Total Protein 8.0 (6.3-8.2) g/dL Albumin 4.7 (3.5-5.0) g/dL Urine Color Yellow (Yellow) Urine Appearance Clear (Clear) Urine pH 6.0 (4.6-8.0) Ur Specific [place] 1.010 (1.005-1.030) Urine Protein Negative (Negative) Urine Glucose (UA) 100 A (Negative) mg/dL Urine Ketones Negative (Negative) Urine Blood Small A (Negative) Urine Nitrite Negative (Negative) Urine Bilirubin Negative (Negative) Urine Urobilinogen 0.2 (0.2) mg/dL Ur Leukocyte Esterase Moderate A (Negative) U Hyaline Cast (Auto) 3-5 A (0-2) /LPF Urine Microscopic RBC 0-2 (0-5) /HPF Urine Microscopic WBC 3-5 (0-5) /HPF Ur Epithelial Cells None Seen (None Seen) /HPF Urine Bacteria None Seen (None Seen) /HPF Urine Culture Reflexed YES (NO) Monoscreen (NEGATIVE) Influenza Type A Ag (NEGATIVE) Influenza Type B Ag (NEGATIVE) RSV (PCR) (NEGATIVE) SARS-CoV-2 (PCR) (NEGATIVE) 09/15/23 09/15/23 09/15/23 Range/Units 17:00 17:00 17:48 WBC (4.0-10.5) x10^3/uL RBC (4.1-5.6) x10^6/uL Hgb (12.5-18.0) g/dL Hct (42-50) % MCV (78-100) fL MCH (26-32) pg MCHC (32-36) g/dL RDW (11.5-14.0) % Plt Count (150-450) x10^3/uL MPV (7.5-11.0) fL Gran % (36.0-66.0) % Immature Gran % (Auto) (0.00-0.4) % Nucleat RBC Rel Count (0.00-0.1) % Eos # (Auto) (0-0.5) x10^3/uL Immature Gran # (Auto) (0.00-0.03) x10^3u/L Absolute Lymphs (auto) (1.0-4.6) x10^3/uL Absolute Monos (auto) (0.0-1.3) x10^3/uL Absolute Nucleated RBC (0.00-0.01) x10^3u/L Lymphocytes % (24.0-44.0) % Monocytes % (0.0-12.0) % Eosinophils % (0.00-5.0) % Basophils % (0.0-0.4) % Absolute Granulocytes (1.4-6.9) x10^3/uL Basophils # (0-0.4) x10^3/uL Sodium (137-145) mmol/L Potassium (3.5-5.1) mmol/L Chloride (98-107) mmol/L Carbon Dioxide (22-30) mmol/L Anion Gap (5-15) MEQ/L BUN (9-20) mg/dL Creatinine (0.66-1.25) mg/dL Estimated GFR ML/MIN Glucose (74-106) mg/dL Calcium (8.4-10.2) mg/dL Total Bilirubin (0.2-1.3) mg/dL AST (17-59) U/L ALT (0-50) U/L Alkaline Phosphatase (38-126) U/L Troponin I 0.658 H* (0.000-0.034) ng/mL Serum Total Protein (6.3-8.2) g/dL Albumin (3.5-5.0) g/dL Urine Color (Yellow) Urine Appearance (Clear) Urine pH (4.6-8.0) Ur Specific [place] (1.005-1.030) Urine Protein (Negative) Urine Glucose (UA) (Negative) mg/dL Urine Ketones (Negative) Urine Blood (Negative) Urine Nitrite (Negative) Urine Bilirubin (Negative) Urine Urobilinogen (0.2) mg/dL Ur Leukocyte Esterase (Negative) U Hyaline Cast (Auto) (0-2) /LPF Urine Microscopic RBC (0-5) /HPF Urine Microscopic WBC (0-5) /HPF Ur Epithelial Cells (None Seen) /HPF Urine Bacteria (None Seen) /HPF Urine Culture Reflexed (NO) Monoscreen NEGATIVE (NEGATIVE) Influenza Type A Ag NEGATIVE (NEGATIVE) Influenza Type B Ag NEGATIVE (NEGATIVE) RSV (PCR) NEGATIVE (NEGATIVE) SARS-CoV-2 (PCR) NEGATIVE (NEGATIVE) - Radiology Impressions Radiology Exams & Impressions: Radiology Procedures Category Date Time Status CHEST 1 VIEW (PORTABLE) Stat Exams 09/15/23 19:03 Completed Assessment/Plan (1) Hypokalemia Current Visit: Yes Status: Acute Assessment & Plan: K in the 2s, he is on diuretics, and has nausea and poor intake. So a combination of these. But we must replace K judiciously as to avoid over- shooting to high K, especially in setting of advance CKD. Mg was mid 2s. Will hold diuretic for now as he has no overt fluid overload sign/symptom. Code(s): E87.6 - HYPOKALEMIA (2) Renal failure Current Visit: Yes Status: Acute Qualifiers: Renal failure chronicity: acute on chronic Chronic kidney disease stage: stage 5, not on chronic dialysis Assessment & Plan: BUN 150s, Cr 3s. I think he may be a bit contracted/volume depleted with elevated bicarb and low BP. Holding diuretic for now. Continue NS but at a slower rate of 70ml/hr. Will monitor closely. Pt and family has not rule out HD as an option. What they want is to get him stable and be able to go home and see his trader next week to discuss HD options. As of now, there is no emergent indication to start HD: K is not high (he has low K), no severe acidosis (he is in fact contracted with an alkalosis), no fluid overload (e his on RA and comfortable, chest xray shows clear lungs), and he has no emergent uremia - no confusion, AMS, seizure. So, we can manage him medically tonight. If his numbers are worse tomorrow, he may have to be transferred to another facility to start HD. If his numbers are stable and improved, he can go home to follow-up with his trader as planned (3) Elevated troponin Current Visit: No Status: Acute Assessment & Plan: Trop 0.6, likely due to poor renal clearance rather than a true NSTEMI. Trops are cleared by the kidneys. He has no active chest pain. He is now DNR. We can follow a few more trops to be sure Code(s): R79.89 - OTHER SPECIFIED ABNORMAL FINDINGS OF BLOOD CHEMISTRY (4) Leukocytosis Current Visit: No Status: Acute Assessment & Plan: WBC 14, likely a stress response. CXR and UA clear. No fever. Monitor Code(s): D72.829 - ELEVATED WHITE BLOOD CELL COUNT, UNSPECIFIED Telemedicine Encounter - Telemedicine Encounter Telemedicine Encounter: The entirety of this encounter was performed via Telemedicine" The pt gave me verbal consent to have this telemedicine visit
[2023-09-15] MEDS ORDERED: NON-FORMULARY ITEM (Rosuvastatin Calcium [Rosuvastatin Calcium] 20 MG Tablet) PO SCH (22:00)
[2023-09-15] MEDS ORDERED: NON-FORMULARY ITEM (Potassium Chloride [Potassium Chloride] 20 MEQ Tab.Er.Prt) PO SCH (22:00)
[2023-09-15] MEDS ORDERED: NON-FORMULARY ITEM (Ropinirole Hcl [Ropinirole Hcl] 1 MG Tablet) PO SCH (22:00)
[2023-09-15] MEDS ORDERED: Requip 0.5 MG ONE (22:22)
[2023-09-15] MEDS: Requip 0.5 MG PO SCH (22:39)
[2023-09-15] MEDS: COREG 12.5 MG PO SCH (22:40)
[2023-09-15] MEDS: HEPARIN 5000 UNITS/0.5 ML (HIGH RISK MED) SQ SCH (22:40)
[2023-09-15] MEDS: HUMALOG SQ PRN (22:41)
[2023-09-15] MEDS: Sodium Chloride 0.9% 10 ML FLUSH Syringe IV SCH (22:54)
[2023-09-15] MEDS: Ambien 10 MG PO PRN (22:57)
[2023-09-16 02:15] LABS: Hematocrit 34.7 % (42-50); Hemoglobin 12.1 g/dL (12.5-18.0); Mean Cell Volume 89.2 fL (78-100); Mean Corpuscular Hemoglobin 31.1 pg (26-32); Mean Corpuscular Hgb Concent. 34.9 g/dL (32-36); Mean Platelet Volume 9.6 fL (7.5-11.0); Platelet Count 182 x10^3/uL (150-450); Red Blood Count 3.89 x10^6/uL (4.1-5.6); Red Cell Distribution Width 12.7 % (11.5-14.0); White Blood Count 11.9 x10^3/uL (4.0-10.5)
[2023-09-16 02:38] LABS: ALBUMIN 4.2 g/dL (3.5-5.0); ANION GAP 14.2 MEQ/L (5-15); BILIRUBIN,TOTAL 0.8 mg/dL (0.2-1.3); Calcium 9.5 mg/dL (8.4-10.2); Creatinine 1 2.96 mg/dL (0.66-1.25); EST GLOMERULAR FILTRATION RATE 20.6 ML/MIN; Total Protein 7.2 g/dL (6.3-8.2)
[2023-09-16 03:29] LABS: Potassium 1.9 mmol/L (3.5-5.1)
[2023-09-16] MEDS: SODIUM CHLORIDE 0.45% W/ 20 mEq KCL 1,000 ML IV SCH ×2 (04:11→18:48)
[2023-09-16] MEDS: POTASSIUM CHLORIDE 20 mEq IN WATER 100ML 20 MEQ/100 ML BAG IV SCH ×2 (04:16→06:09)
[2023-09-16] MEDS: Sodium Chloride 0.9% 10 ML FLUSH Syringe IV SCH ×2 (06:09→18:38)
[2023-09-16] MEDS: HUMALOG SQ PRN ×4 (09:28→22:49)
[2023-09-16] MEDS: HEPARIN 5000 UNITS/0.5 ML (HIGH RISK MED) SQ SCH ×2 (09:28→22:37)
[2023-09-16] MEDS: Klor Con PO SCH ×2 (09:28→22:37)
[2023-09-16] MEDS: COREG 12.5 MG PO SCH ×2 (09:29→22:38)
[2023-09-16] MEDS: THERAGRAN MULTIVITAMIN PO SCH (09:29)
[2023-09-16] MEDS: Vitamin C 500 MG PO SCH (09:29)
[2023-09-16] MEDS: NORCO 7.5/325 MG TAB PO PRN (10:16)
[2023-09-16] MEDS: POTASSIUM CHLORIDE 20 mEq IN WATER 100ML 100 ML IV SCH ×2 (10:31→12:17)
--- NOTE | 2023-09-16 12:52 | PCM.NOTE ---
Date and Time: 09/16/23 1244 Subjective Assessment: 09/16/23 is a 82 year old male with history of DMII, HTN, CAD, CKD 5 here for abnormal labs - renal failure and low K. He has known CKD and is not yet on HD. He sees a wearing apparel shaker- Dr. Vela and has a scheduled appointment for Monday. He came in with c/o body aches and nausea. He continues to c/o of body aches today. He does have chronic pain and takes norco and follow pain management for injections. COVID, flu, and RSV are all negative. He does not have a temp. Potassium is improving with replacement. Kidney function has improved today. Pt reports he does not have a good appetite but ate his entire breakfast. Daughter states pt is nauseous but pt reported he was not. Zofran added in case needed. Pt denies CP, SOB, Abd. pain, N/V/D. - Review of Systems Constitutional: No Fever, No Chills Eyes: No Symptoms Ears, Nose, & Throat: No Symptoms Respiratory: No Cough, No Short Of Breath Cardiac: No Chest Pain, No Edema, No Syncope Abdominal/Gastrointestinal: No Abdominal Pain, No Nausea, No Vomiting, No Diarrhea Genitourinary Symptoms: No Dysuria Musculoskeletal: Other (body aches), No Back Pain, No Neck Pain Skin: No Rash Neurological: No Dizziness, No Focal Weakness, No Sensory Changes Psychological: No Symptoms Endocrine: No Symptoms Hematologic/Lymphatic: No Symptoms Immunological/Allergic: No Symptoms Objective Exam General Appearance: no apparent distress, alert, obese Neurologic Exam: alert, oriented x 3, cooperative, normal mood/affect, nml cerebellar function, sensation nml, No motor deficits Skin Exam: normal color, warm, dry Wound Assessment: Skin/Wound Assessment Wound/Incision Assessment Start: 09/16/23 11:03 Text: Status: Active Freq: Protocol: Document 09/16/23 08:00 RB (Rec: 09/16/23 11:05 RB [id number]) Wound/Incision Assessment Left Medial Buttock Wound Assessment Shift Assessment Wound Type Pressure Ulcer Wound Stage Stage II Drainage Amount None Drainage Odor None/Absent General Appearance Open to air Surrounding Tissue Dark Red,Purple Comment open to air, barrier cream applied, will turn Q 2 hour Wound Photo Photo Taken No Eye Exam: PERRL, EOMI, eyes nml inspection Ears, Nose, Throat Exam: normal ENT inspection, pharynx normal, moist mucous membranes Neck Exam: normal inspection, non-tender, supple, full range of motion Respiratory Exam: normal breath sounds, lungs clear, No respiratory distress Cardiovascular Exam: regular rate/rhythm, normal heart sounds Gastrointestinal/Abdomen Exam: soft, No tenderness, No mass Extremity Exam: normal inspection, normal range of motion Back Exam: normal inspection, normal range of motion, No CVA tenderness, No vertebral tenderness Male Genitalia Exam: deferred Rectal Exam: deferred OBJECTIVE DATA Vital Signs: Vital Signs - 24 hr Temp Pulse Resp BP BP BP Pulse Ox 09/16/23 12:00 97.3 F 68 17 135/71 96 09/16/23 08:00 18 09/16/23 07:28 97.5 F 72 18 124/66 97 09/16/23 04:00 97.8 F 72 15 123/69 99 09/16/23 00:00 97.7 F 87 17 125/67 96 09/15/23 22:56 96 09/15/23 22:49 72 18 96 09/15/23 21:33 96.5 F 66 19 132/82 98 09/15/23 21:00 78 18 133/81 96 09/15/23 20:30 78 18 134/93 97 09/15/23 19:30 68 11 L 129/81 97 09/15/23 19:01 67 14 156/78 100 09/15/23 18:30 91 H 9 L 135/103 99 09/15/23 18:00 88 11 L 140/75 96 09/15/23 17:59 81 19 09/15/23 17:50 77 9 L 09/15/23 17:40 79 10 L 09/15/23 17:32 75 8 L 09/15/23 17:00 67 18 143/90 09/15/23 16:23 95.9 F 98 H 20 139/84 98 Pain Assessment - Last Documented Pain Intensity 6 Pain Scale Used 0-10 Pain Scale Intake and Output: Intake & Output 09/14/23 09/15/23 09/16/23 09/17/23 11:59 11:59 11:59 11:59 Intake Total 808 Output Total 250 Balance 558 Weight 115.8 kg Lab Results: Lab Results-Last 24 Hours 09/15/23 09/15/23 09/15/23 Range/Units 17:00 17:00 17:00 WBC 14.8 H (4.0-10.5) x10^3/uL RBC 4.16 (4.1-5.6) x10^6/uL Hgb 13.1 (12.5-18.0) g/dL Hct 37.1 L (42-50) % MCV 89.2 (78-100) fL MCH 31.5 (26-32) pg MCHC 35.3 (32-36) g/dL RDW 12.8 (11.5-14.0) % Plt Count 218 (150-450) x10^3/uL MPV 10.5 (7.5-11.0) fL Gran % 83.8 H (36.0-66.0) % Immature Gran % (Auto) 0.4 (0.00-0.4) % Nucleat RBC Rel Count 0.0 (0.00-0.1) % Eos # (Auto) 0.04 (0-0.5) x10^3/uL Immature Gran # (Auto) 0.06 H (0.00-0.03) x10^3u/L Absolute Lymphs (auto) 1.24 (1.0-4.6) x10^3/uL Absolute Monos (auto) 1.03 (0.0-1.3) x10^3/uL Absolute Nucleated RBC 0.00 (0.00-0.01) x10^3u/L Lymphocytes % 8.4 L (24.0-44.0) % Monocytes % 7.0 (0.0-12.0) % Eosinophils % 0.3 (0.00-5.0) % Basophils % 0.1 (0.0-0.4) % Absolute Granulocytes 12.42 H (1.4-6.9) x10^3/uL Basophils # 0.01 (0-0.4) x10^3/uL Sodium 132 L (137-145) mmol/L Potassium 2.3 L* (3.5-5.1) mmol/L Chloride 84 L (98-107) mmol/L Carbon Dioxide 33 H (22-30) mmol/L Anion Gap 17.6 H (5-15) MEQ/L BUN 157 H (9-20) mg/dL Creatinine 3.28 H (0.66-1.25) mg/dL Estimated GFR 18.2 ML/MIN Glucose 165 H (74-106) mg/dL POC Glucometer (74 to 106) mg/dL Calcium 10.1 (8.4-10.2) mg/dL Magnesium (1.6-2.3) mg/dL Total Bilirubin 0.90 (0.2-1.3) mg/dL AST 53 (17-59) U/L ALT 34 (0-50) U/L Alkaline Phosphatase 94 (38-126) U/L Troponin I (0.000-0.034) ng/mL Serum Total Protein 8.0 (6.3-8.2) g/dL Albumin 4.7 (3.5-5.0) g/dL Urine Color Yellow (Yellow) Urine Appearance Clear (Clear) Urine pH 6.0 (4.6-8.0) Ur Specific Starbuck 1.010 (1.005-1.030) Urine Protein Negative (Negative) Urine Glucose (UA) 100 A (Negative) mg/dL Urine Ketones Negative (Negative) Urine Blood Small A (Negative) Urine Nitrite Negative (Negative) Urine Bilirubin Negative (Negative) Urine Urobilinogen 0.2 (0.2) mg/dL Ur Leukocyte Esterase Moderate A (Negative) U Hyaline Cast (Auto) 3-5 A (0-2) /LPF Urine Microscopic RBC 0-2 (0-5) /HPF Urine Microscopic WBC 3-5 (0-5) /HPF Ur Epithelial Cells None Seen (None Seen) /HPF Urine Bacteria None Seen (None Seen) /HPF Urine Culture Reflexed YES (NO) Monoscreen (NEGATIVE) Influenza Type A Ag (NEGATIVE) Influenza Type B Ag (NEGATIVE) RSV (PCR) (NEGATIVE) SARS-CoV-2 (PCR) (NEGATIVE) 09/15/23 09/15/23 09/15/23 Range/Units 17:00 17:00 17:48 WBC (4.0-10.5) x10^3/uL RBC (4.1-5.6) x10^6/uL Hgb (12.5-18.0) g/dL Hct (42-50) % MCV (78-100) fL MCH (26-32) pg MCHC (32-36) g/dL RDW (11.5-14.0) % Plt Count (150-450) x10^3/uL MPV (7.5-11.0) fL Gran % (36.0-66.0) % Immature Gran % (Auto) (0.00-0.4) % Nucleat RBC Rel Count (0.00-0.1) % Eos # (Auto) (0-0.5) x10^3/uL Immature Gran # (Auto) (0.00-0.03) x10^3u/L Absolute Lymphs (auto) (1.0-4.6) x10^3/uL Absolute Monos (auto) (0.0-1.3) x10^3/uL Absolute Nucleated RBC (0.00-0.01) x10^3u/L Lymphocytes % (24.0-44.0) % Monocytes % (0.0-12.0) % Eosinophils % (0.00-5.0) % Basophils % (0.0-0.4) % Absolute Granulocytes (1.4-6.9) x10^3/uL Basophils # (0-0.4) x10^3/uL Sodium (137-145) mmol/L Potassium (3.5-5.1) mmol/L Chloride (98-107) mmol/L Carbon Dioxide (22-30) mmol/L Anion Gap (5-15) MEQ/L BUN (9-20) mg/dL Creatinine (0.66-1.25) mg/dL Estimated GFR ML/MIN Glucose (74-106) mg/dL POC Glucometer (74 to 106) mg/dL Calcium (8.4-10.2) mg/dL Magnesium (1.6-2.3) mg/dL Total Bilirubin (0.2-1.3) mg/dL AST (17-59) U/L ALT (0-50) U/L Alkaline Phosphatase (38-126) U/L Troponin I 0.658 H* (0.000-0.034) ng/mL Serum Total Protein (6.3-8.2) g/dL Albumin (3.5-5.0) g/dL Urine Color (Yellow) Urine Appearance (Clear) Urine pH (4.6-8.0) Ur Specific Starbuck (1.005-1.030) Urine Protein (Negative) Urine Glucose (UA) (Negative) mg/dL Urine Ketones (Negative) Urine Blood (Negative) Urine Nitrite (Negative) Urine Bilirubin (Negative) Urine Urobilinogen (0.2) mg/dL Ur Leukocyte Esterase (Negative) U Hyaline Cast (Auto) (0-2) /LPF Urine Microscopic RBC (0-5) /HPF Urine Microscopic WBC (0-5) /HPF Ur Epithelial Cells (None Seen) /HPF Urine Bacteria (None Seen) /HPF Urine Culture Reflexed (NO) Monoscreen NEGATIVE (NEGATIVE) Influenza Type A Ag NEGATIVE (NEGATIVE) Influenza Type B Ag NEGATIVE (NEGATIVE) RSV (PCR) NEGATIVE (NEGATIVE) SARS-CoV-2 (PCR) NEGATIVE (NEGATIVE) 09/15/23 09/15/23 09/16/23 Range/Units 21:27 21:50 02:13 WBC (4.0-10.5) x10^3/uL RBC (4.1-5.6) x10^6/uL Hgb (12.5-18.0) g/dL Hct (42-50) % MCV (78-100) fL MCH (26-32) pg MCHC (32-36) g/dL RDW (11.5-14.0) % Plt Count (150-450) x10^3/uL MPV (7.5-11.0) fL Gran % (36.0-66.0) % Immature Gran % (Auto) (0.00-0.4) % Nucleat RBC Rel Count (0.00-0.1) % Eos # (Auto) (0-0.5) x10^3/uL Immature Gran # (Auto) (0.00-0.03) x10^3u/L Absolute Lymphs (auto) (1.0-4.6) x10^3/uL Absolute Monos (auto) (0.0-1.3) x10^3/uL Absolute Nucleated RBC (0.00-0.01) x10^3u/L Lymphocytes % (24.0-44.0) % Monocytes % (0.0-12.0) % Eosinophils % (0.00-5.0) % Basophils % (0.0-0.4) % Absolute Granulocytes (1.4-6.9) x10^3/uL Basophils # (0-0.4) x10^3/uL Sodium (137-145) mmol/L Potassium (3.5-5.1) mmol/L Chloride (98-107) mmol/L Carbon Dioxide (22-30) mmol/L Anion Gap (5-15) MEQ/L BUN (9-20) mg/dL Creatinine (0.66-1.25) mg/dL Estimated GFR ML/MIN Glucose (74-106) mg/dL POC Glucometer 259 H (74 to 106) mg/dL Calcium (8.4-10.2) mg/dL Magnesium (1.6-2.3) mg/dL Total Bilirubin (0.2-1.3) mg/dL AST (17-59) U/L ALT (0-50) U/L Alkaline Phosphatase (38-126) U/L Troponin I 0.532 H* 0.511 H* (0.000-0.034) ng/mL Serum Total Protein (6.3-8.2) g/dL Albumin (3.5-5.0) g/dL Urine Color (Yellow) Urine Appearance (Clear) Urine pH (4.6-8.0) Ur Specific Starbuck (1.005-1.030) Urine Protein (Negative) Urine Glucose (UA) (Negative) mg/dL Urine Ketones (Negative) Urine Blood (Negative) Urine Nitrite (Negative) Urine Bilirubin (Negative) Urine Urobilinogen (0.2) mg/dL Ur Leukocyte Esterase (Negative) U Hyaline Cast (Auto) (0-2) /LPF Urine Microscopic RBC (0-5) /HPF Urine Microscopic WBC (0-5) /HPF Ur Epithelial Cells (None Seen) /HPF Urine Bacteria (None Seen) /HPF Urine Culture Reflexed (NO) Monoscreen (NEGATIVE) Influenza Type A Ag (NEGATIVE) Influenza Type B Ag (NEGATIVE) RSV (PCR) (NEGATIVE) SARS-CoV-2 (PCR) (NEGATIVE) 09/16/23 09/16/23 09/16/23 Range/Units 02:13 02:13 03:30 WBC 11.9 H (4.0-10.5) x10^3/uL RBC 3.89 L (4.1-5.6) x10^6/uL Hgb 12.1 L (12.5-18.0) g/dL Hct 34.7 L (42-50) % MCV 89.2 (78-100) fL MCH 31.1 (26-32) pg MCHC 34.9 (32-36) g/dL RDW 12.7 (11.5-14.0) % Plt Count 182 (150-450) x10^3/uL MPV 9.6 (7.5-11.0) fL Gran % (36.0-66.0) % Immature Gran % (Auto) (0.00-0.4) % Nucleat RBC Rel Count (0.00-0.1) % Eos # (Auto) (0-0.5) x10^3/uL Immature Gran # (Auto) (0.00-0.03) x10^3u/L Absolute Lymphs (auto) (1.0-4.6) x10^3/uL Absolute Monos (auto) (0.0-1.3) x10^3/uL Absolute Nucleated RBC (0.00-0.01) x10^3u/L Lymphocytes % (24.0-44.0) % Monocytes % (0.0-12.0) % Eosinophils % (0.00-5.0) % Basophils % (0.0-0.4) % Absolute Granulocytes (1.4-6.9) x10^3/uL Basophils # (0-0.4) x10^3/uL Sodium 133 L (137-145) mmol/L Potassium 1.9 L* (3.5-5.1) mmol/L Chloride 88 L (98-107) mmol/L Carbon Dioxide 33 H (22-30) mmol/L Anion Gap 14.2 (5-15) MEQ/L BUN 147 H (9-20) mg/dL Creatinine 2.96 H (0.66-1.25) mg/dL Estimated GFR 20.6 ML/MIN Glucose 264 H (74-106) mg/dL POC Glucometer (74 to 106) mg/dL Calcium 9.5 (8.4-10.2) mg/dL Magnesium 2.6 H (1.6-2.3) mg/dL Total Bilirubin 0.80 (0.2-1.3) mg/dL AST 47 (17-59) U/L ALT 32 (0-50) U/L Alkaline Phosphatase 82 (38-126) U/L Troponin I (0.000-0.034) ng/mL Serum Total Protein 7.2 (6.3-8.2) g/dL Albumin 4.2 (3.5-5.0) g/dL Urine Color (Yellow) Urine Appearance (Clear) Urine pH (4.6-8.0) Ur Specific Starbuck (1.005-1.030) Urine Protein (Negative) Urine Glucose (UA) (Negative) mg/dL Urine Ketones (Negative) Urine Blood (Negative) Urine Nitrite (Negative) Urine Bilirubin (Negative) Urine Urobilinogen (0.2) mg/dL Ur Leukocyte Esterase (Negative) U Hyaline Cast (Auto) (0-2) /LPF Urine Microscopic RBC (0-5) /HPF Urine Microscopic WBC (0-5) /HPF Ur Epithelial Cells (None Seen) /HPF Urine Bacteria (None Seen) /HPF Urine Culture Reflexed (NO) Monoscreen (NEGATIVE) Influenza Type A Ag (NEGATIVE) Influenza Type B Ag (NEGATIVE) RSV (PCR) (NEGATIVE) SARS-CoV-2 (PCR) (NEGATIVE) 09/16/23 09/16/23 09/16/23 Range/Units 06:57 10:00 12:17 WBC (4.0-10.5) x10^3/uL RBC (4.1-5.6) x10^6/uL Hgb (12.5-18.0) g/dL Hct (42-50) % MCV (78-100) fL MCH (26-32) pg MCHC (32-36) g/dL RDW (11.5-14.0) % Plt Count (150-450) x10^3/uL MPV (7.5-11.0) fL Gran % (36.0-66.0) % Immature Gran % (Auto) (0.00-0.4) % Nucleat RBC Rel Count (0.00-0.1) % Eos # (Auto) (0-0.5) x10^3/uL Immature Gran # (Auto) (0.00-0.03) x10^3u/L Absolute Lymphs (auto) (1.0-4.6) x10^3/uL Absolute Monos (auto) (0.0-1.3) x10^3/uL Absolute Nucleated RBC (0.00-0.01) x10^3u/L Lymphocytes % (24.0-44.0) % Monocytes % (0.0-12.0) % Eosinophils % (0.00-5.0) % Basophils % (0.0-0.4) % Absolute Granulocytes (1.4-6.9) x10^3/uL Basophils # (0-0.4) x10^3/uL Sodium (137-145) mmol/L Potassium 2.6 L* D (3.5-5.1) mmol/L Chloride (98-107) mmol/L Carbon Dioxide (22-30) mmol/L Anion Gap (5-15) MEQ/L BUN (9-20) mg/dL Creatinine (0.66-1.25) mg/dL Estimated GFR ML/MIN Glucose (74-106) mg/dL POC Glucometer 221 H 240 H (74 to 106) mg/dL Calcium (8.4-10.2) mg/dL Magnesium (1.6-2.3) mg/dL Total Bilirubin (0.2-1.3) mg/dL AST (17-59) U/L ALT (0-50) U/L Alkaline Phosphatase (38-126) U/L Troponin I (0.000-0.034) ng/mL Serum Total Protein (6.3-8.2) g/dL Albumin (3.5-5.0) g/dL Urine Color (Yellow) Urine Appearance (Clear) Urine pH (4.6-8.0) Ur Specific Starbuck (1.005-1.030) Urine Protein (Negative) Urine Glucose (UA) (Negative) mg/dL Urine Ketones (Negative) Urine Blood (Negative) Urine Nitrite (Negative) Urine Bilirubin (Negative) Urine Urobilinogen (0.2) mg/dL Ur Leukocyte Esterase (Negative) U Hyaline Cast (Auto) (0-2) /LPF Urine Microscopic RBC (0-5) /HPF Urine Microscopic WBC (0-5) /HPF Ur Epithelial Cells (None Seen) /HPF Urine Bacteria (None Seen) /HPF Urine Culture Reflexed (NO) Monoscreen (NEGATIVE) Influenza Type A Ag (NEGATIVE) Influenza Type B Ag (NEGATIVE) RSV (PCR) (NEGATIVE) SARS-CoV-2 (PCR) (NEGATIVE) 09/16/23 Range/Units 12:20 WBC (4.0-10.5) x10^3/uL RBC (4.1-5.6) x10^6/uL Hgb (12.5-18.0) g/dL Hct (42-50) % MCV (78-100) fL MCH (26-32) pg MCHC (32-36) g/dL RDW (11.5-14.0) % Plt Count (150-450) x10^3/uL MPV (7.5-11.0) fL Gran % (36.0-66.0) % Immature Gran % (Auto) (0.00-0.4) % Nucleat RBC Rel Count (0.00-0.1) % Eos # (Auto) (0-0.5) x10^3/uL Immature Gran # (Auto) (0.00-0.03) x10^3u/L Absolute Lymphs (auto) (1.0-4.6) x10^3/uL Absolute Monos (auto) (0.0-1.3) x10^3/uL Absolute Nucleated RBC (0.00-0.01) x10^3u/L Lymphocytes % (24.0-44.0) % Monocytes % (0.0-12.0) % Eosinophils % (0.00-5.0) % Basophils % (0.0-0.4) % Absolute Granulocytes (1.4-6.9) x10^3/uL Basophils # (0-0.4) x10^3/uL Sodium (137-145) mmol/L Potassium 2.9 L* (3.5-5.1) mmol/L Chloride (98-107) mmol/L Carbon Dioxide (22-30) mmol/L Anion Gap (5-15) MEQ/L BUN (9-20) mg/dL Creatinine (0.66-1.25) mg/dL Estimated GFR ML/MIN Glucose (74-106) mg/dL POC Glucometer (74 to 106) mg/dL Calcium (8.4-10.2) mg/dL Magnesium (1.6-2.3) mg/dL Total Bilirubin (0.2-1.3) mg/dL AST (17-59) U/L ALT (0-50) U/L Alkaline Phosphatase (38-126) U/L Troponin I (0.000-0.034) ng/mL Serum Total Protein (6.3-8.2) g/dL Albumin (3.5-5.0) g/dL Urine Color (Yellow) Urine Appearance (Clear) Urine pH (4.6-8.0) Ur Specific Starbuck (1.005-1.030) Urine Protein (Negative) Urine Glucose (UA) (Negative) mg/dL Urine Ketones (Negative) Urine Blood (Negative) Urine Nitrite (Negative) Urine Bilirubin (Negative) Urine Urobilinogen (0.2) mg/dL Ur Leukocyte Esterase (Negative) U Hyaline Cast (Auto) (0-2) /LPF Urine Microscopic RBC (0-5) /HPF Urine Microscopic WBC (0-5) /HPF Ur Epithelial Cells (None Seen) /HPF Urine Bacteria (None Seen) /HPF Urine Culture Reflexed (NO) Monoscreen (NEGATIVE) Influenza Type A Ag (NEGATIVE) Influenza Type B Ag (NEGATIVE) RSV (PCR) (NEGATIVE) SARS-CoV-2 (PCR) (NEGATIVE) Radiology Exams: Radiology Procedures Category Date Time Status CHEST 1 VIEW (PORTABLE) Stat Exams 09/15/23 19:03 Completed Assessment/Plan (1) Hypokalemia Current Visit: Yes Status: Acute Assessment & Plan: - Bumex and metolazone held - Zofran for N/V - K+ slowly improving- trend - repeat labs Q4 hr Code(s): E87.6 - HYPOKALEMIA (2) Renal failure Current Visit: Yes Status: Acute Qualifiers: Renal failure chronicity: acute on chronic Chronic kidney disease stage: stage 5, not on chronic dialysis Assessment & Plan: - Improving today- trend labs - Gentle hydration 1/2 NS with 20kcl @ 70 - Follows Dr. Vela for nephrology and has an appointment scheduled for Monday. (3) Elevated troponin Current Visit: No Status: Acute Assessment & Plan: - Trop 0.658, 0.532, 0.511 - denies CP - most likely 2:2 SAILAJA Code(s): R79.89 - OTHER SPECIFIED ABNORMAL FINDINGS OF BLOOD CHEMISTRY (4) Leukocytosis Current Visit: No Status: Acute Assessment & Plan: - WBC 11.9- improved - Most likely stress response, no fever - BC X2 pending Code(s): D72.829 - ELEVATED WHITE BLOOD CELL COUNT, UNSPECIFIED (5) Type II diabetes mellitus Current Visit: Yes Status: Acute Assessment & Plan: - Lantus 45 units at HS- held for now -Novolog 15 units with meals - Humalog S/S- low dose - A1C - pending (6) Obesity (BMI 30.0-34.9) Current Visit: Yes Status: Acute Assessment & Plan: - advised diet and exercise control VTE: Heparin Next of KIN: Esme Johnson [phone] D/C plan: tomorrow Code status: SCO/DNR Code(s): E66.9 - OBESITY, UNSPECIFIED
[2023-09-16] MEDS: Miralax Powder 17GM PACKET PO SCH (15:27)
[2023-09-16] MEDS ORDERED: Klor Con PO ONE ×2 (17:27→19:30)
[2023-09-16] MEDS ORDERED: Flomax 0.4 MG ONE (18:08)
[2023-09-16] MEDS: HUMALOG SQ SCH (18:10)
[2023-09-16] MEDS: Ambien 10 MG PO PRN (22:38)
[2023-09-16] MEDS: Requip 0.5 MG PO SCH (22:38)
[2023-09-16] MEDS: ZOCOR 20MG PO SCH (22:38)
[2023-09-17] MEDS: Sodium Chloride 0.9% 10 ML FLUSH Syringe IV SCH ×3 (01:08→15:22)
[2023-09-17] MEDS ORDERED: xanAX 0.25 MG PO ONE (02:44)
[2023-09-17] MEDS ORDERED: MAALOX ES 30 ML UNIT DOSE PO PRN (02:45)
[2023-09-17 03:14] LABS: Hematocrit 35.1 % (42-50); Hemoglobin 11.8 g/dL (12.5-18.0); Mean Cell Volume 92.4 fL (78-100); Mean Corpuscular Hemoglobin 31.1 pg (26-32); Mean Corpuscular Hgb Concent. 33.6 g/dL (32-36); Mean Platelet Volume 9.9 fL (7.5-11.0); Platelet Count 182 x10^3/uL (150-450); Red Cell Distribution Width 13.1 % (11.5-14.0)
[2023-09-17 03:34] LABS: ALBUMIN 3.9 g/dL (3.5-5.0); ANION GAP 14.7 MEQ/L (5-15); BILIRUBIN,TOTAL 0.9 mg/dL (0.2-1.3); Calcium 8.7 mg/dL (8.4-10.2); Creatinine 1 2.49 mg/dL (0.66-1.25); EST GLOMERULAR FILTRATION RATE 25.3 ML/MIN; Potassium 4.5 mmol/L (3.5-5.1); Total Protein 6.6 g/dL (6.3-8.2)
[2023-09-17] MEDS: NORCO 7.5/325 MG TAB PO PRN ×2 (07:35→20:12)
[2023-09-17] MEDS: Miralax Powder 17GM PACKET PO SCH (09:26)
[2023-09-17] MEDS: THERAGRAN MULTIVITAMIN PO SCH (09:27)
[2023-09-17] MEDS: Klor Con PO SCH ×2 (09:27→22:50)
[2023-09-17] MEDS: Vitamin C 500 MG PO SCH (09:28)
[2023-09-17] MEDS: COREG 12.5 MG PO SCH ×2 (09:28→22:51)
[2023-09-17] MEDS: HUMALOG SQ SCH ×3 (09:31→17:09)
[2023-09-17] MEDS: HEPARIN 5000 UNITS/0.5 ML (HIGH RISK MED) SQ SCH ×2 (09:37→22:50)
[2023-09-17] MEDS: SODIUM CHLORIDE 0.45% W/ 20 mEq KCL 1,000 ML IV SCH ×2 (09:39→22:59)
--- NOTE | 2023-09-17 10:05 | PCM.DS ---
Discharge Summary Date of Admission: 09/15/23 20:58 Date of Discharge: 09/17/23 Admitting Physician: ALESSANDRO SY DO Primary Care Provider: LÓPEZ DE GUZMAN Allergies Allergies No Known Drug Allergies Allergy (Verified 09/15/23 16:23) Hospital Summary - Hospital Course Hospital Course: 09/16/23 is a 82 year old male with history of DMII, HTN, CAD, CKD 5 here for abnormal labs - renal failure and low K. He has known CKD and is not yet on HD. He sees a follow up rep- Dr. Vela and has a scheduled appointment for Monday. He came in with c/o body aches and nausea. He continues to c/o of body aches today. He does have chronic pain and takes norco and follow pain management for injections. COVID, flu, and RSV are all negative. He does not have a temp. Potassium is improving with replacement. Kidney function has improved today. Pt reports he does not have a good appetite but ate his entire breakfast. Daughter states pt is nauseous but pt reported he was not. Zofran added in case needed. Pt denies CP, SOB, Abd. pain, N/V/D. Pt also noted that he has been using multiple OTC laxatives recently as he has been constipated. This may have con tributed to his low potassium. Constipation has resolved. 09/17/23 Pt resting in bed. SAILAJA and hypokalemia have resolved. He is at baseline kidney function. Pt states he had some constipation again last night and had a large BM this AM. Daughter explains he yelled out in pain last night and stated he had LLQ pain. He continues to have some discomfort today after BM. CT ordered for further evaluation. Grandson and daughter also want him up and walking around on the unit. They explained they do not feel comfortable taking him home when he has been laying in the bed for a few days. Discussed with nursing and they are willing to get him up to walk today as PT is not here. He denies ny further c/o at this time and pt would like to go home. - Vitals & Intake/Output Vital Signs: Vital Signs Temperature 97.5 F 09/17/23 07:34 Pulse Rate 75 09/17/23 07:34 Respiratory Rate 16 01/07/24 07:44 Blood Pressure 137/72 09/17/23 07:34 O2 Sat by Pulse Oximetry 95 09/17/23 07:34 Intake & Output: Intake & Output 09/14/23 09/15/23 09/16/23 09/17/23 11:59 11:59 11:59 11:59 Intake Total 808 2409 Output Total 250 Balance 558 2409 Weight 115.8 kg - Lab Result Diagrams: 09/17/23 03:11 09/17/23 03:11 Lab Results-Last 24 Hrs: Lab Results-Last 24 Hours 09/16/23 09/16/23 09/16/23 Range/Units 05:20 10:00 12:17 WBC (4.0-10.5) x10^3/uL RBC (4.1-5.6) x10^6/uL Hgb (12.5-18.0) g/dL Hct (42-50) % MCV (78-100) fL MCH (26-32) pg MCHC (32-36) g/dL RDW (11.5-14.0) % Plt Count (150-450) x10^3/uL MPV (7.5-11.0) fL Sodium (137-145) mmol/L Potassium 2.6 L* D (3.5-5.1) mmol/L Chloride (98-107) mmol/L Carbon Dioxide (22-30) mmol/L Anion Gap (5-15) MEQ/L BUN (9-20) mg/dL Creatinine (0.66-1.25) mg/dL Estimated GFR ML/MIN Glucose (74-106) mg/dL POC Glucometer 240 H (74 to 106) mg/dL Hemoglobin A1c 8.12 H (4.5-6.0) % Calcium (8.4-10.2) mg/dL Magnesium (1.6-2.3) mg/dL Total Bilirubin (0.2-1.3) mg/dL AST (17-59) U/L ALT (0-50) U/L Alkaline Phosphatase (38-126) U/L Troponin I (0.000-0.034) ng/mL Serum Total Protein (6.3-8.2) g/dL Albumin (3.5-5.0) g/dL 09/16/23 09/16/2309/16/24 Range/Units 12:20 16:20 16:26 WBC (4.0-10.5) x10^3/uL RBC (4.1-5.6) x10^6/uL Hgb (12.5-18.0) g/dL Hct (42-50) % MCV (78-100) fL MCH (26-32) pg MCHC (32-36) g/dL RDW (11.5-14.0) % Plt Count (150-450) x10^3/uL MPV (7.5-11.0) fL Sodium (137-145) mmol/L Potassium 2.9 L* 2.5 L* (3.5-5.1) mmol/L Chloride (98-107) mmol/L Carbon Dioxide (22-30) mmol/L Anion Gap (5-15) MEQ/L BUN (9-20) mg/dL Creatinine (0.66-1.25) mg/dL Estimated GFR ML/MIN Glucose (74-106) mg/dL POC Glucometer 349 H (74 to 106) mg/dL Hemoglobin A1c (4.5-6.0) % Calcium (8.4-10.2) mg/dL Magnesium (1.6-2.3) mg/dL Total Bilirubin (0.2-1.3) mg/dL AST (17-59) U/L ALT (0-50) U/L Alkaline Phosphatase (38-126) U/L Troponin I (0.000-0.034) ng/mL Serum Total Protein (6.3-8.2) g/dL Albumin (3.5-5.0) g/dL 09/16/23 09/16/23 09/17/23 Range/Units 20:25 20:54 00:21 WBC (4.0-10.5) x10^3/uL RBC (4.1-5.6) x10^6/uL Hgb (12.5-18.0) g/dL Hct (42-50) % MCV (78-100) fL MCH (26-32) pg MCHC (32-36) g/dL RDW (11.5-14.0) % Plt Count (150-450) x10^3/uL MPV (7.5-11.0) fL Sodium (137-145) mmol/L Potassium 2.8 L* 3.1 L (3.5-5.1) mmol/L Chloride (98-107) mmol/L Carbon Dioxide (22-30) mmol/L Anion Gap (5-15) MEQ/L BUN (9-20) mg/dL Creatinine (0.66-1.25) mg/dL Estimated GFR ML/MIN Glucose (74-106) mg/dL POC Glucometer 283 H (74 to 106) mg/dL Hemoglobin A1c (4.5-6.0) % Calcium (8.4-10.2) mg/dL Magnesium (1.6-2.3) mg/dL Total Bilirubin (0.2-1.3) mg/dL AST (17-59) U/L ALT (0-50) U/L Alkaline Phosphatase (38-126) U/L Troponin I (0.000-0.034) ng/mL Serum Total Protein (6.3-8.2) g/dL Albumin (3.5-5.0) g/dL 09/17/23 09/17/23 09/17/23 Range/Units 03:11 03:11 03:11 WBC 12.0 H (4.0-10.5) x10^3/uL RBC 3.80 L (4.1-5.6) x10^6/uL Hgb 11.8 L (12.5-18.0) g/dL Hct 35.1 L (42-50) % MCV 92.4 (78-100) fL MCH 31.1 (26-32) pg MCHC 33.6 (32-36) g/dL RDW 13.1 (11.5-14.0) % Plt Count 182 (150-450) x10^3/uL MPV 9.9 (7.5-11.0) fL Sodium 132 L (137-145) mmol/L Potassium 4.5 D (3.5-5.1) mmol/L Chloride 96 L (98-107) mmol/L Carbon Dioxide 26 (22-30) mmol/L Anion Gap 14.7 (5-15) MEQ/L BUN 116 H (9-20) mg/dL Creatinine 2.49 H (0.66-1.25) mg/dL Estimated GFR 25.3 ML/MIN Glucose 118 H (74-106) mg/dL POC Glucometer (74 to 106) mg/dL Hemoglobin A1c (4.5-6.0) % Calcium 8.7 (8.4-10.2) mg/dL Magnesium 2.3 (1.6-2.3) mg/dL Total Bilirubin 0.90 (0.2-1.3) mg/dL AST 32 (17-59) U/L ALT 28 (0-50) U/L Alkaline Phosphatase 76 (38-126) U/L Troponin I (0.000-0.034) ng/mL Serum Total Protein 6.6 (6.3-8.2) g/dL Albumin 3.9 (3.5-5.0) g/dL 09/17/23 09/17/23 Range/Units 03:11 07:21 WBC (4.0-10.5) x10^3/uL RBC (4.1-5.6) x10^6/uL Hgb (12.5-18.0) g/dL Hct (42-50) % MCV (78-100) fL MCH (26-32) pg MCHC (32-36) g/dL RDW (11.5-14.0) % Plt Count (150-450) x10^3/uL MPV (7.5-11.0) fL Sodium (137-145) mmol/L Potassium (3.5-5.1) mmol/L Chloride (98-107) mmol/L Carbon Dioxide (22-30) mmol/L Anion Gap (5-15) MEQ/L BUN (9-20) mg/dL Creatinine (0.66-1.25) mg/dL Estimated GFR ML/MIN Glucose (74-106) mg/dL POC Glucometer 162 H (74 to 106) mg/dL Hemoglobin A1c (4.5-6.0) % Calcium (8.4-10.2) mg/dL Magnesium (1.6-2.3) mg/dL Total Bilirubin (0.2-1.3) mg/dL AST (17-59) U/L ALT (0-50) U/L Alkaline Phosphatase (38-126) U/L Troponin I 0.364 H* (0.000-0.034) ng/mL Serum Total Protein (6.3-8.2) g/dL Albumin (3.5-5.0) g/dL Micro Results-Entire Visit: Microbiology 09/15/23 17:46 Blood Culture - Preliminary Blood 09/15/23 17:35 Blood Culture - Preliminary Blood 09/15/23 17:00 Urine Culture - Final Clean Catch Midstream NO GROWTH Accuchecks Date 09/17/23 Date 09/16/23 Date 09/16/23 Date 09/16/23 Time 07:32 Time 21:00 Time 16:30 Time 12:27 - Radiology Exams Ordered Rad Exams-Entire Visit: Radiology Procedures Category Date Time Status ABDOMEN AND PELVIS W/0 CONTRAS [CT] Routine Exams 09/17/23 09:50 Ordered CHEST 1 VIEW (PORTABLE) Stat Exams 09/15/23 19:03 Completed - Procedures and Test Procedures and Tests throughout Hospitalization: Therapy Orders & Screens 09/15/23 22:06 RT Screen per Nursing Assess ONCE Comment: Protocol Order Physician Instructions: Greater than 3 points order RT Admission Screen Reason For Exam: Triggered on Admission Diagnosis: renal failure; hypokalemia Diagnosis: renal failure; hypokalemia Pneumonia: No Home O2: No Asthma: No CHF: Yes Home CPAP/BIPAP: Yes Home Nebs/MDI: No Total Points: 8 09/15/23 22:49 Respiratory Therapy Assessment UD Comment: Diagnosis: renal failure; hypokalemia 09/15/23 22:56 BiPap/CPAP UD Comment: Diagnosis: renal failure; hypokalemia 09/17/23 02:56 EKG ROUTINE Comment: Diagnosis: renal failure; hypokalemia Discharge Exam General Appearance: no apparent distress, alert Neurologic Exam: alert, oriented x 3, cooperative, normal mood/affect, nml cerebellar function, sensation nml, No motor deficits Eye Exam: PERRL, EOMI, eyes nml inspection Ears, Nose, Throat Exam: normal ENT inspection, pharynx normal, moist mucous membranes Neck Exam: normal inspection, non-tender, supple, full range of motion Respiratory Exam: normal breath sounds, lungs clear, No respiratory distress Cardiovascular Exam: regular rate/rhythm, normal heart sounds Gastrointestinal/Abdomen Exam: soft, tenderness (LLQ), No mass Male Genitalia Exam: deferred Rectal Exam: deferred Back Exam: normal inspection, normal range of motion, No CVA tenderness, No vertebral tenderness Extremity Exam: normal inspection, normal range of motion Skin Exam: normal color, warm, dry Wound Assessment: Skin/Wound Assessment Wound/Incision Assessment Start: 09/16/23 11:03 Text: Status: Active Freq: Protocol: Document 09/16/23 08:00 RB (Rec: 09/16/23 11:05 RB [id number]) Wound/Incision Assessment Left Medial Buttock Wound Assessment Shift Assessment Wound Type Pressure Ulcer Wound Stage Stage II Drainage Amount None Drainage Odor None/Absent General Appearance Open to air Surrounding Tissue Dark Red,Purple Comment open to air, barrier cream applied, will turn Q 2 hour Wound Photo Photo Taken No Final Diagnosis/Problem List - Final Discharge Diagnosis/Problem (1) Hypokalemia Current Visit: Yes Status: Acute Code(s): E87.6 - HYPOKALEMIA (2) Renal failure Current Visit: Yes Status: Acute (3) Elevated troponin Current Visit: No Status: Acute Code(s): R79.89 - OTHER SPECIFIED ABNORMAL FINDINGS OF BLOOD CHEMISTRY (4) Leukocytosis Current Visit: No Status: Acute Code(s): D72.829 - ELEVATED WHITE BLOOD CELL COUNT, UNSPECIFIED (5) Type II diabetes mellitus Current Visit: Yes Status: Acute (6) Obesity (BMI 30.0-34.9) Current Visit: Yes Status: Acute Assessment & Plan: (1) Hypokalemia Current Visit: Yes Status: Acute Assessment & Plan: - Bumex and metolazone held - Zofran for N/V - K+ slowly improving- trend - repeat labs Q4 hr Code(s): E87.6 - HYPOKALEMIA (2) Renal failure Current Visit: Yes Status: Acute Qualifiers: Renal failure chronicity: acute on chronic Chronic kidney disease stage: stage 5, not on chronic dialysis Assessment & Plan: - Improving today- trend labs - Gentle hydration 1/2 NS with 20kcl @ 70 - Follows Dr. Vela for nephrology and has an appointment scheduled for Monday. (3) Elevated troponin Current Visit: No Status: Acute Assessment & Plan: - Trop 0.658, 0.532, 0.511 - denies CP - most likely 2:2 SAILAJA Code(s): R79.89 - OTHER SPECIFIED ABNORMAL FINDINGS OF BLOOD CHEMISTRY (4) Leukocytosis Current Visit: No Status: Acute Assessment & Plan: - WBC 11.9- improved - Most likely stress response, no fever - BC X2 pending Code(s): D72.829 - ELEVATED WHITE BLOOD CELL COUNT, UNSPECIFIED (5) Type II diabetes mellitus Current Visit: Yes Status: Acute Assessment & Plan: - Lantus 45 units at HS- held for now -Novolog 15 units with meals - Humalog S/S- low dose - A1C - pending (6) Obesity (BMI 30.0-34.9) Current Visit: Yes Status: Acute Assessment & Plan: - advised diet and exercise control Code(s): E66.9 - OBESITY, UNSPECIFIED (7) Constipation Current Visit: Yes Status: Chronic Assessment & Plan: - Miralax - CT abd for LLQ pain- Pending Code(s): K59.00 - CONSTIPATION, UNSPECIFIED - Discharge Discharge Date: 09/17/23 Disposition: Home, Self-Care Condition: Fair Prescriptions: Continue Ropinirole HCl 1 mg PO HS Carvedilol 12.5 mg [Coreg 12.5 mg] 12.5 mg PO BID Dapagliflozin Propanediol [Farxiga] 10 mg PO DAILY Potassium Chloride 20 meq PO BID Rosuvastatin Calcium 20 mg PO HS Zolpidem Tartrate 10 mg [Ambien 10 MG] 10 mg PO HS PRN PRN Reason: Insomnia Bumetanide 4 mg PO DAILY Insulin Glargine,Hum.rec.anlog [Toujeo Max Solostar] 45 units SQ QHS Ascorbic Acid [Vitamin C] 1 tab PO DAILY Multivit-Min/FA/Lycopen/Lutein [Centrum Silver Tablet] 1 tab PO DAILY Insulin Aspart [Novolog] 15 unit SQ UD Gabapentin 600 mg PO TID metOLazone [Metolazone] 5 mg PO UD Hydrocodone/Acetaminophen [Hydrocodone-Acetamin 7.5-325] 1 tab PO TID Bumetanide 2 mg PO LUNCH Vericiguat [Verquvo] 5 mg PO DAILY Instructions: Hypokalemia (DC), Kidney Failure (DC) Additional Instructions: Can use Miralax for constipation if needed OTC.
[2023-09-17] MEDS ORDERED: ATARAX 25 MG PO ONE (11:24)
[2023-09-17] MEDS ORDERED: NORCO 7.5/325 MG TAB PO ONE (11:45)
--- NOTE | 2023-09-17 11:59 | XRAY ---
CLINICAL HISTORY:LLQ abd pain COMPARISON:01/27/2022 TECHNIQUE:CT scan of the abdomen was performed without IV or oral contrast. FINDINGS: Contracted gall bladder with redemonstrated multiple small calculi are seen within. Basal chest cuts show the progression of bilateral mild-size free pleural effusion with underlying parenchymal bands. Redemonstrated mild enlarged cardiac size with evidence of cardiac surgery. Right basal calcified nodule measuring 4 mm. Redemonstrated proximal sigmoid colon medial wall related exophytic lobulated shape soft tissue lesion with internal coarse calcifications, it measures 36 x 16 mm. Redemonstarted multiple mainly descending and sigmoid colon diverticular outpouches of diverticulosis. Newly demonstrated ovoid dense FB is seen at mid small bowel loop? drug, with a prominent small segment of the proximal bowel. Atheromatous calcifications of the aorta and iliac vessels noted. Faint tiny calcific foci noted at the liver and spleen are likely granulomatous. Liver is normal size and shape and with regular margins.No focal or diffuse parenchymal abnormality. No hepatic mass is identified. Pancreas appear atrophic. No peripancreatic fat stranding, pancreatic pseudocyst or peripancreatic fluid collection. Spleen normal in size, no mass seen. Both adrenal glands are unremarkable. No evidence of acute appendicitis Both kidneys are normal in size, shape and orientation. No calculi, or hydronephrosis seen on either side. Two left renal cortical isodense cysts are noted measuring 1.2 cm and 1 cm in diameter. Both ureters and urinary bladder appear normal. Stomach and rest of small bowel loops are unremarkable. Caecum and ileocecal junction appear normal. No evidence of bowel obstruction. No evidence of significant enlargement of the mesenteric or retroperitoneal lymph nodes. Bilateral total hip replacement noted. Advanced degenerative changes noted more at the L4-L5 disc level. No lytic or sclerotic bone lesions in visualized bones. IMPRESSION: Redemonstrated colonic diverticulosis with proximal sigmoid colon medial wall related exophytic lobulated shape soft tissue lesion with internal coarse calcifications, measuring 36 x 16 mm ? impacted calcified content within a large diverticulum, however, neoplastic etiology can't be excluded. Left renal two isodense cysts Newly demonstrated ovoid dense FB is seen at mid small bowel loop ? drug, with a prominent small segment of the proximal bowel, clinical correlation is needed. Redemonstrated cholelithiasis without CT evidence of cholecystitis. Progression of bilateral mild-size free pleural effusion with underlying parenchymal bands. Redemonstration of mild enlarged cardiac size with evidence of cardiac surgery. Rest of the findings mentioned above. Electronically Signed by: Machelle Barba MD. (09/17/2023 11:54:56 EST)
--- NOTE | 2023-09-17 12:53 | PCM.NOTE ---
Date and Time: 09/17/23 1245 Subjective Assessment: 09/16/23 is a 82 year old male with history of DMII, HTN, CAD, CKD 5 here for abnormal labs - renal failure and low K. He has known CKD and is not yet on HD. He sees a music theory teacher- Dr. Vela and has a scheduled appointment for Monday. He came in with c/o body aches and nausea. He continues to c/o of body aches today. He does have chronic pain and takes norco and follow pain management for injections. COVID, flu, and RSV are all negative. He does not have a temp. Potassium is improving with replacement. Kidney function has improved today. Pt reports he does not have a good appetite but ate his entire breakfast. Daughter states pt is nauseous but pt reported he was not. Dianfran added in case needed. Pt denies CP, SOB, Abd. pain, N/V/D. Pt also noted that he has been using multiple OTC laxatives recently as he has been constipated. This may have contributed to his low potassium. Constipation has resolved. 09/17/23 Pt resting in bed. SAILAJA and hypokalemia have resolved. He is at baseline kidney function. Pt states he had some constipation again last night and had a large BM this AM. Daughter explains he yelled out in pain last night and stated he had LLQ pain. He continues to have some discomfort today after BM. CT ordered for further evaluation. Grandson and daughter also want him up and walking around on the unit. They explained they do not feel comfortable taking him home when he has been laying in the bed for a few days. Discussed with nursing and they are willing to get him up to walk today as PT is not here. Pt was able to walk fine down hallway and back. Around noon pt stated he wanted to just go home and would sign out AMA if he did not leave soon. Pt states "I saw the pearly herrera and came back, I want to go home to ." Daughter and grandson in room crying and want to take him home to they explained. Reviewed CT abd results and discussed pt case with Dr. Marsh. Went into room with Dr. Marsh and discussed CT findings with pt and family. Pt agreeable to stay and have further eval by general surgery of mass of LLQ. Pt reports constipation is resolved but pain continues. He is wiling to stay after further discussion for pain control. Will add dilaudid IV for pain control. Daughter asking for benzos to be added for anxiety. Discussed this is not the best option due to the amount of pain medications being given and related respiratory depression when given in combination. Added hydroxyzine PRN. Daughter also asking for more pain meds to be sent home upon d/c. Will address pain level closer to d/c. Could consider hospice for CKD and uncontrolled pain if needed. Case management to discuss options tomorrow. - Review of Systems Constitutional: No Fever, No Chills Eyes: No Symptoms Ears, Nose, & Throat: No Symptoms Respiratory: No Cough, No Short Of Breath Cardiac: No Chest Pain, No Edema, No Syncope Abdominal/Gastrointestinal: Abdominal Pain (LLQ), No Nausea, No Vomiting, No Diarrhea Genitourinary Symptoms: No Dysuria Musculoskeletal: No Back Pain, No Neck Pain Skin: No Rash Neurological: No Dizziness, No Focal Weakness, No Sensory Changes Psychological: No Symptoms Endocrine: No Symptoms Hematologic/Lymphatic: No Symptoms Immunological/Allergic: No Symptoms Objective Exam General Appearance: no apparent distress, alert Neurologic Exam: alert, oriented x 3, cooperative, normal mood/affect, nml cerebellar function, sensation nml, No motor deficits Skin Exam: normal color, warm, dry Wound Assessment: Skin/Wound Assessment Wound/Incision Assessment Start: 09/16/23 11:03 Text: Status: Active Freq: Protocol: Document 09/16/23 08:00 RB (Rec: 09/16/23 11:05 RB [id number]) Wound/Incision Assessment Left Medial Buttock Wound Assessment Shift Assessment Wound Type Pressure Ulcer Wound Stage Stage II Drainage Amount None Drainage Odor None/Absent General Appearance Open to air Surrounding Tissue Dark Red,Purple Comment open to air, barrier cream applied, will turn Q 2 hour Wound Photo Photo Taken No Eye Exam: PERRL, EOMI, eyes nml inspection Ears, Nose, Throat Exam: normal ENT inspection, pharynx normal, moist mucous membranes Neck Exam: normal inspection, non-tender, supple, full range of motion Respiratory Exam: normal breath sounds, lungs clear, No respiratory distress Cardiovascular Exam: regular rate/rhythm, normal heart sounds Gastrointestinal/Abdomen Exam: soft, tenderness (LLQ), No mass Extremity Exam: normal inspection, normal range of motion Back Exam: normal inspection, normal range of motion, No CVA tenderness, No vertebral tenderness Male Genitalia Exam: deferred Rectal Exam: deferred OBJECTIVE DATA Vital Signs: Vital Signs - 24 hr Temp Pulse Resp BP Pulse Ox 09/17/23 12:00 16 09/17/23 07:44 16 09/17/23 07:34 97.5 F 75 16 137/72 95 09/17/23 04:00 69 22 115/72 96 09/17/23 00:00 69 18 09/16/23 20:00 17 09/16/23 19:41 97.8 F 69 17 140/74 97 09/16/23 17:58 95 09/16/23 16:00 97.5 F 69 17 131/72 96 Pain Assessment - Last Documented Pain Intensity 10 Pain Scale Used 0-10 Pain Scale Intake and Output: Intake & Output 09/15/23 09/16/23 09/17/23 09/18/23 11:59 11:59 11:59 11:59 Intake Total 808 2409 Output Total 250 Balance 558 2409 Weight 115.8 kg Lab Results: Lab Results-Last 24 Hours 09/16/23 09/16/23 09/16/23 Range/Units 05:20 16:20 16:26 WBC (4.0-10.5) x10^3/uL RBC (4.1-5.6) x10^6/uL Hgb (12.5-18.0) g/dL Hct (42-50) % MCV (78-100) fL MCH (26-32) pg MCHC (32-36) g/dL RDW (11.5-14.0) % Plt Count (150-450) x10^3/uL MPV (7.5-11.0) fL Sodium (137-145) mmol/L Potassium 2.5 L* (3.5-5.1) mmol/L Chloride (98-107) mmol/L Carbon Dioxide (22-30) mmol/L Anion Gap (5-15) MEQ/L BUN (9-20) mg/dL Creatinine (0.66-1.25) mg/dL Estimated GFR ML/MIN Glucose (74-106) mg/dL POC Glucometer 349 H (74 to 106) mg/dL Hemoglobin A1c 8.12 H (4.5-6.0) % Calcium (8.4-10.2) mg/dL Magnesium (1.6-2.3) mg/dL Total Bilirubin (0.2-1.3) mg/dL AST (17-59) U/L ALT (0-50) U/L Alkaline Phosphatase (38-126) U/L Troponin I (0.000-0.034) ng/mL Serum Total Protein (6.3-8.2) g/dL Albumin (3.5-5.0) g/dL 09/16/23 09/16/23 09/17/23 Range/Units 20:25 20:54 00:21 WBC (4.0-10.5) x10^3/uL RBC (4.1-5.6) x10^6/uL Hgb (12.5-18.0) g/dL Hct (42-50) % MCV (78-100) fL MCH (26-32) pg MCHC (32-36) g/dL RDW (11.5-14.0) % Plt Count (150-450) x10^3/uL MPV (7.5-11.0) fL Sodium (137-145) mmol/L Potassium 2.8 L* 3.1 L (3.5-5.1) mmol/L Chloride (98-107) mmol/L Carbon Dioxide (22-30) mmol/L Anion Gap (5-15) MEQ/L BUN (9-20) mg/dL Creatinine (0.66-1.25) mg/dL Estimated GFR ML/MIN Glucose (74-106) mg/dL POC Glucometer 283 H (74 to 106) mg/dL Hemoglobin A1c (4.5-6.0) % Calcium (8.4-10.2) mg/dL Magnesium (1.6-2.3) mg/dL Total Bilirubin (0.2-1.3) mg/dL AST (17-59) U/L ALT (0-50) U/L Alkaline Phosphatase (38-126) U/L Troponin I (0.000-0.034) ng/mL Serum Total Protein (6.3-8.2) g/dL Albumin (3.5-5.0) g/dL 09/17/23 09/17/23 09/17/23 Range/Units 03:11 03:11 03:11 WBC 12.0 H (4.0-10.5) x10^3/uL RBC 3.80 L (4.1-5.6) x10^6/uL Hgb 11.8 L (12.5-18.0) g/dL Hct 35.1 L (42-50) % MCV 92.4 (78-100) fL MCH 31.1 (26-32) pg MCHC 33.6 (32-36) g/dL RDW 13.1 (11.5-14.0) % Plt Count 182 (150-450) x10^3/uL MPV 9.9 (7.5-11.0) fL Sodium 132 L (137-145) mmol/L Potassium 4.5 D (3.5-5.1) mmol/L Chloride 96 L (98-107) mmol/L Carbon Dioxide 26 (22-30) mmol/L Anion Gap 14.7 (5-15) MEQ/L BUN 116 H (9-20) mg/dL Creatinine 2.49 H (0.66-1.25) mg/dL Estimated GFR 25.3 ML/MIN Glucose 118 H (74-106) mg/dL POC Glucometer (74 to 106) mg/dL Hemoglobin A1c (4.5-6.0) % Calcium 8.7 (8.4-10.2) mg/dL Magnesium 2.3 (1.6-2.3) mg/dL Total Bilirubin 0.90 (0.2-1.3) mg/dL AST 32 (17-59) U/L ALT 28 (0-50) U/L Alkaline Phosphatase 76 (38-126) U/L Troponin I (0.000-0.034) ng/mL Serum Total Protein 6.6 (6.3-8.2) g/dL Albumin 3.9 (3.5-5.0) g/dL 09/17/23 09/17/23 Range/Units 03:11 07:21 WBC (4.0-10.5) x10^3/uL RBC (4.1-5.6) x10^6/uL Hgb (12.5-18.0) g/dL Hct (42-50) % MCV (78-100) fL MCH (26-32) pg MCHC (32-36) g/dL RDW (11.5-14.0) % Plt Count (150-450) x10^3/uL MPV (7.5-11.0) fL Sodium (137-145) mmol/L Potassium (3.5-5.1) mmol/L Chloride (98-107) mmol/L Carbon Dioxide (22-30) mmol/L Anion Gap (5-15) MEQ/L BUN (9-20) mg/dL Creatinine (0.66-1.25) mg/dL Estimated GFR ML/MIN Glucose (74-106) mg/dL POC Glucometer 162 H (74 to 106) mg/dL Hemoglobin A1c (4.5-6.0) % Calcium (8.4-10.2) mg/dL Magnesium (1.6-2.3) mg/dL Total Bilirubin (0.2-1.3) mg/dL AST (17-59) U/L ALT (0-50) U/L Alkaline Phosphatase (38-126) U/L Troponin I 0.364 H* (0.000-0.034) ng/mL Serum Total Protein (6.3-8.2) g/dL Albumin (3.5-5.0) g/dL Radiology Exams: Radiology Procedures Category Date Time Status ABDOMEN AND PELVIS W/0 CONTRAS [CT] Routine Exams 09/17/23 10:07 Completed CHEST 1 VIEW (PORTABLE) Stat Exams 09/15/23 19:03 Completed Assessment/Plan (1) Hypokalemia Current Visit: Yes Status: Acute Assessment & Plan: - Bumex and metolazone held - Zofran for N/V - K+ slowly improving- trend - repeat labs Q4 hr 09/17 - Resolved K+ 4.5 Code(s): E87.6 - HYPOKALEMIA (2) Renal failure Current Visit: Yes Status: Acute Qualifiers: Renal failure chronicity: acute on chronic Chronic kidney disease stage: stage 5, not on chronic dialysis Assessment & Plan: - Improving today- trend labs - Gentle hydration 1/2 NS with 20kcl @ 70 - Follows Dr. Vela for nephrology and has an appointment scheduled for Monday. 09/17 - will not be able to make appointment tomorrow so this will need to be rescheduled. - SAILAJA resolved (3) Elevated troponin Current Visit: No Status: Acute Assessment & Plan: - Trop 0.658, 0.532, 0.511 - denies CP - most likely 2:2 SAILAJA Code(s): R79.89 - OTHER SPECIFIED ABNORMAL FINDINGS OF BLOOD CHEMISTRY (4) Leukocytosis Current Visit: No Status: Acute Assessment & Plan: - WBC 11.9- improved - Most likely stress response, no fever - BC X2 pending 09/17/23 - BC X2 negative - WBC 12 Code(s): D72.829 - ELEVATED WHITE BLOOD CELL COUNT, UNSPECIFIED (5) Type II diabetes mellitus Current Visit: Yes Status: Acute Assessment & Plan: - Lantus 45 units at HS- held for now -Novolog 15 units with meals - Humalog S/S- low dose - A1C - 8.12 - uncontrolled (6) Obesity (BMI 30.0-34.9) Current Visit: Yes Status: Acute Assessment & Plan: - advised diet and exercise control Code(s): E66.9 - OBESITY, UNSPECIFIED (7) Constipation Current Visit: Yes Status: Chronic Assessment & Plan: - resolved - Miralax - CT abd for LLQ pain 09/17/23 IMPRESSION: Redemonstrated colonic diverticulosis with proximal sigmoid colon medial wall related exophytic lobulated shape soft tissue lesion with internal coarse calcifications, measuring 36 x 16 mm ? impacted calcified content within a large diverticulum, however, neoplastic etiology can't be excluded. Left renal two isodense cysts Newly demonstrated ovoid dense FB is seen at mid small bowel loop ? drug, with a prominent small segment of the proximal bowel, clinical correlation is needed. Redemonstrated cholelithiasis without CT evidence of cholecystitis. Progression of bilateral mild-size free pleural effusion with underlying parenchymal bands. Redemonstration of mild enlarged cardiac size with evidence of cardiac surgery. Rest of the findings mentioned above. VTE: Heparin Next of KIN: Esme Johnson [phone] D/C plan: tomorrow Code status: SCO/DNR Code(s): K59.00 - CONSTIPATION, UNSPECIFIED
--- NOTE | 2023-09-17 13:35 | PCM.NOTE ---
Date and Time: 09/17/23 1335 Objective Exam Wound Assessment: Skin/Wound Assessment Wound/Incision Assessment Start: 09/16/23 11:03 Text: Status: Active Freq: Protocol: Document 09/16/23 08:00 RB (Rec: 09/16/23 11:05 RB [id number]) Wound/Incision Assessment Left Medial Buttock Wound Assessment Shift Assessment Wound Type Pressure Ulcer Wound Stage Stage II Drainage Amount None Drainage Odor None/Absent General Appearance Open to air Surrounding Tissue Dark Red,Purple Comment open to air, barrier cream applied, will turn Q 2 hour Wound Photo Photo Taken No OBJECTIVE DATA Vital Signs: Vital Signs - 24 hr Temp Pulse Resp BP Pulse Ox 09/17/23 12:00 16 09/17/23 07:44 16 09/17/23 07:34 97.5 F 75 16 137/72 95 09/17/23 04:00 69 22 115/72 96 09/17/23 00:00 69 18 09/16/23 20:00 17 09/16/23 19:41 97.8 F 69 17 140/74 97 09/16/23 17:58 95 09/16/23 16:00 97.5 F 69 17 131/72 96 Pain Assessment - Last Documented Pain Intensity 8 Pain Scale Used 0-10 Pain Scale Intake and Output: Intake & Output 09/15/23 09/16/23 09/17/23 09/18/23 11:59 11:59 11:59 11:59 Intake Total 808 2409 Output Total 250 Balance 558 2409 Weight 115.8 kg Lab Results: Lab Results-Last 24 Hours 09/16/23 09/16/23 09/16/23 Range/Units 05:20 16:20 16:26 WBC (4.0-10.5) x10^3/uL RBC (4.1-5.6) x10^6/uL Hgb (12.5-18.0) g/dL Hct (42-50) % MCV (78-100) fL MCH (26-32) pg MCHC (32-36) g/dL RDW (11.5-14.0) % Plt Count (150-450) x10^3/uL MPV (7.5-11.0) fL Sodium (137-145) mmol/L Potassium 2.5 L* (3.5-5.1) mmol/L Chloride (98-107) mmol/L Carbon Dioxide (22-30) mmol/L Anion Gap (5-15) MEQ/L BUN (9-20) mg/dL Creatinine (0.66-1.25) mg/dL Estimated GFR ML/MIN Glucose (74-106) mg/dL POC Glucometer 349 H (74 to 106) mg/dL Hemoglobin A1c 8.12 H (4.5-6.0) % Calcium (8.4-10.2) mg/dL Magnesium (1.6-2.3) mg/dL Total Bilirubin (0.2-1.3) mg/dL AST (17-59) U/L ALT (0-50) U/L Alkaline Phosphatase (38-126) U/L Troponin I (0.000-0.034) ng/mL Serum Total Protein (6.3-8.2) g/dL Albumin (3.5-5.0) g/dL 09/16/23 09/16/23 09/17/23 Range/Units 20:25 20:54 00:21 WBC (4.0-10.5) x10^3/uL RBC (4.1-5.6) x10^6/uL Hgb (12.5-18.0) g/dL Hct (42-50) % MCV (78-100) fL MCH (26-32) pg MCHC (32-36) g/dL RDW (11.5-14.0) % Plt Count (150-450) x10^3/uL MPV (7.5-11.0) fL Sodium (137-145) mmol/L Potassium 2.8 L* 3.1 L (3.5-5.1) mmol/L Chloride (98-107) mmol/L Carbon Dioxide (22-30) mmol/L Anion Gap (5-15) MEQ/L BUN (9-20) mg/dL Creatinine (0.66-1.25) mg/dL Estimated GFR ML/MIN Glucose (74-106) mg/dL POC Glucometer 283 H (74 to 106) mg/dL Hemoglobin A1c (4.5-6.0) % Calcium (8.4-10.2) mg/dL Magnesium (1.6-2.3) mg/dL Total Bilirubin (0.2-1.3) mg/dL AST (17-59) U/L ALT (0-50) U/L Alkaline Phosphatase (38-126) U/L Troponin I (0.000-0.034) ng/mL Serum Total Protein (6.3-8.2) g/dL Albumin (3.5-5.0) g/dL 09/17/23 09/17/23 09/17/23 Range/Units 03:11 03:11 03:11 WBC 12.0 H (4.0-10.5) x10^3/uL RBC 3.80 L (4.1-5.6) x10^6/uL Hgb 11.8 L (12.5-18.0) g/dL Hct 35.1 L (42-50) % MCV 92.4 (78-100) fL MCH 31.1 (26-32) pg MCHC 33.6 (32-36) g/dL RDW 13.1 (11.5-14.0) % Plt Count 182 (150-450) x10^3/uL MPV 9.9 (7.5-11.0) fL Sodium 132 L (137-145) mmol/L Potassium 4.5 D (3.5-5.1) mmol/L Chloride 96 L (98-107) mmol/L Carbon Dioxide 26 (22-30) mmol/L Anion Gap 14.7 (5-15) MEQ/L BUN 116 H (9-20) mg/dL Creatinine 2.49 H (0.66-1.25) mg/dL Estimated GFR 25.3 ML/MIN Glucose 118 H (74-106) mg/dL POC Glucometer (74 to 106) mg/dL Hemoglobin A1c (4.5-6.0) % Calcium 8.7 (8.4-10.2) mg/dL Magnesium 2.3 (1.6-2.3) mg/dL Total Bilirubin 0.90 (0.2-1.3) mg/dL AST 32 (17-59) U/L ALT 28 (0-50) U/L Alkaline Phosphatase 76 (38-126) U/L Troponin I (0.000-0.034) ng/mL Serum Total Protein 6.6 (6.3-8.2) g/dL Albumin 3.9 (3.5-5.0) g/dL 09/17/23 09/17/23 Range/Units 03:11 07:21 WBC (4.0-10.5) x10^3/uL RBC (4.1-5.6) x10^6/uL Hgb (12.5-18.0) g/dL Hct (42-50) % MCV (78-100) fL MCH (26-32) pg MCHC (32-36) g/dL RDW (11.5-14.0) % Plt Count (150-450) x10^3/uL MPV (7.5-11.0) fL Sodium (137-145) mmol/L Potassium (3.5-5.1) mmol/L Chloride (98-107) mmol/L Carbon Dioxide (22-30) mmol/L Anion Gap (5-15) MEQ/L BUN (9-20) mg/dL Creatinine (0.66-1.25) mg/dL Estimated GFR ML/MIN Glucose (74-106) mg/dL POC Glucometer 162 H (74 to 106) mg/dL Hemoglobin A1c (4.5-6.0) % Calcium (8.4-10.2) mg/dL Magnesium (1.6-2.3) mg/dL Total Bilirubin (0.2-1.3) mg/dL AST (17-59) U/L ALT (0-50) U/L Alkaline Phosphatase (38-126) U/L Troponin I 0.364 H* (0.000-0.034) ng/mL Serum Total Protein (6.3-8.2) g/dL Albumin (3.5-5.0) g/dL Radiology Exams: Radiology Procedures Category Date Time Status ABDOMEN AND PELVIS W/0 CONTRAS [CT] Routine Exams 09/17/23 10:07 Completed CHEST 1 VIEW (PORTABLE) Stat Exams 09/15/23 19:03 Completed Telemedicine Encounter - Telemedicine Encounter Telemedicine Encounter: The entirety of this encounter was performed via Telemedicine"
[2023-09-17] MEDS: Hydromorphone 1 mg/ml Injection IV PRN ×2 (14:34→22:50)
[2023-09-17] MEDS: Unasyn 3 GM Vial*** 3 G in Sodium Chloride 100ML MINI-BAG PLUS 100 ML IV SCH (17:09)
[2023-09-17] MEDS: HUMALOG SQ PRN ×2 (17:09→22:49)
[2023-09-17] MEDS: Requip 0.5 MG PO SCH (22:51)
[2023-09-17] MEDS: Ambien 10 MG PO PRN (22:51)
[2023-09-17] MEDS: ZOCOR 20MG PO SCH (22:51)
[2023-09-18] MEDS: Sodium Chloride 0.9% 10 ML FLUSH Syringe IV SCH ×2 (00:35→06:12)
[2023-09-18] MEDS: NORCO 7.5/325 MG TAB PO PRN ×2 (04:40→13:03)
[2023-09-18 04:54] LABS: Hemoglobin 12.7 g/dL (12.5-18.0); Mean Cell Volume 93.1 fL (78-100); Mean Corpuscular Hemoglobin 31.1 pg (26-32); Mean Corpuscular Hgb Concent. 33.4 g/dL (32-36); Mean Platelet Volume 10.8 fL (7.5-11.0); Platelet Count 191 x10^3/uL (150-450); Red Blood Count 4.08 x10^6/uL (4.1-5.6); Red Cell Distribution Width 13.5 % (11.5-14.0); White Blood Count 15.9 x10^3/uL (4.0-10.5)
--- NOTE | 2023-09-18 05:15 | PCM.NOTE ---
Date and Time: 09/18/23512 Subjective Assessment: Mr. Perez is an 82 year old male with a pmhx of DMII, HTN, CAD, CKD 5 admitted with SAILAJA/CKD and severe hypokalemia. Potassium is back to normal and renal function is improved and at baseline. During hospital course, patient has had complaints of LLQ pain with tenderness. CT scan did not show acute diver ticulitis. There is some sort of lesion in his colon which could be malignant. Patient talked about going home on hospice but ultimately decided to stay to try to get his pain relieved. Surgery consulted for evaluation of abnormal CT scan. No surgical intervention needed. Surgery did suggest possible diverticulitis and started patient on Unasyn. Case management to discuss hospice options. 09/18/23: Met with patient bedside. Family present. Endorses continued low abdominal pain 9/10 on numerical pain scale and nausea with hot flashes with meals. Family requesting re-consult with surgeon to discuss colonic mass. Patient requesting consult with nephrology, labs are now at baseline, spoke with nephrology regarding patient, they will follow up as OP, they have called family to advise. Denies fever,cough, sob, cp, DELONG, dizziness,V/D. <JOHN RODRIGUEZ - Last Filed: 09/18/23 14:23> Date and Time: 09/18/232115 <RODO HEATH - Last Filed: 09/18/23 21:19> - Review of Systems Constitutional: No Symptoms Eyes: No Symptoms Ears, Nose, & Throat: No Symptoms Respiratory: No Symptoms Cardiac: No Symptoms Abdominal/Gastrointestinal: Abdominal Pain, Nausea, Appetite Changes Genitourinary Symptoms: No Symptoms Musculoskeletal: No Symptoms Skin: No Symptoms Neurological: No Symptoms Psychological: No Symptoms Endocrine: No Symptoms Hematologic/Lymphatic: No Symptoms Immunological/Allergic: No Symptoms <JOHN RODRIGUEZ - Last Filed: 09/18/23 14:23> Objective Exam General Appearance: no apparent distress Neurologic Exam: alert, oriented x 3, cooperative Skin Exam: normal color Wound Assessment: Skin/Wound Assessment Wound/Incision Assessment Start: 09/16/23 11:03 Text: Status: Active Freq: Protocol: Document 09/16/23 08:00 RB (Rec: 09/16/23 11:05 RB [id number]) Wound/Incision Assessment Left Medial Buttock Wound Assessment Shift Assessment Wound Type Pressure Ulcer Wound Stage Stage II Drainage Amount None Drainage Odor None/Absent General Appearance Open to air Surrounding Tissue Dark Red,Purple Comment open to air, barrier cream applied, will turn Q 2 hour Wound Photo Photo Taken No Eye Exam: PERRL Ears, Nose, Throat Exam: normal ENT inspection Neck Exam: normal inspection Respiratory Exam: normal breath sounds, lungs clear Cardiovascular Exam: regular rate/rhythm Gastrointestinal/Abdomen Exam: soft, normal bowel sounds, tenderness (TTP LLQ) Extremity Exam: normal inspection Back Exam: normal inspection <JOHN RODRIGUEZ - Last Filed: 09/18/23 14:23> Wound Assessment: Skin/Wound Assessment Wound/Incision Assessment Start: 09/16/23 11:03 Text: Status: Active Freq: Q6H Protocol: Document 09/18/23 20:00 JOEL (Rec: 09/18/23 20:45 JOEL [id number]) Wound/Incision Assessment Left Medial Buttock Wound Assessment Shift Assessment Wound Type Pressure Ulcer Wound Stage Stage II Drainage Amount None Drainage Odor None/Absent Comment BARRIER CREAM APPLIED, 2CM X 1 CM STAGE II, PICTURE TAKEN AND PLACED IN CHART <RODO HEATH - Last Filed: 09/18/23 21:19> OBJECTIVE DATA Vital Signs: Vital Signs - 24 hr Temp Pulse Resp BP Pulse Ox 09/18/23 04:00 96.8 F 69 22 128/72 99 09/18/23 00:00 19 09/17/23 23:56 97.8 F 70 19 114/67 97 09/17/23 20:00 97.5 F 71 19 124/79 98 09/17/23 19:20 98 09/17/23 16:00 97.5 F 72 16 122/66 97 09/17/23 12:00 97.6 F 69 16 120/74 95 09/17/23 07:44 16 09/17/23 07:34 97.5 F 75 16 137/72 95 Pain Assessment - Last Documented Pain Intensity 10 Pain Scale Used 0-10 Pain Scale Intake and Output: Intake & Output 09/15/23 09/16/23 09/17/23 09/18/23 11:59 11:59 11:59 11:59 Intake Total 808 2409 976 Output Total 250 Balance 558 2409 976 Weight 115.8 kg Lab Results: Lab Results-Last 24 Hours 09/17/23 09/17/23 09/17/23 Range/Units 07:21 14:04 16:22 WBC (4.0-10.5) x10^3/uL RBC (4.1-5.6) x10^6/uL Hgb (12.5-18.0) g/dL Hct (42-50) % MCV (78-100) fL MCH (26-32) pg MCHC (32-36) g/dL RDW (11.5-14.0) % Plt Count (150-450) x10^3/uL MPV (7.5-11.0) fL POC Glucometer 162 H 188 H 221 H (74 to 106) mg/dL 09/17/23 09/18/23 Range/Units 20:53 04:32 WBC 15.9 H (4.0-10.5) x10^3/uL RBC 4.08 L (4.1-5.6) x10^6/uL Hgb 12.7 (12.5-18.0) g/dL Hct 38.0 L (42-50) % MCV 93.1 (78-100) fL MCH 31.1 (26-32) pg MCHC 33.4 (32-36) g/dL RDW 13.5 (11.5-14.0) % Plt Count 191 (150-450) x10^3/uL MPV 10.8 (7.5-11.0) fL POC Glucometer 245 H (74 to 106) mg/dL Radiology Exams: Radiology Procedures Category Date Time Status ABDOMEN AND PELVIS W/0 CONTRAS [CT] Routine Exams 09/17/23 10:07 Completed Multi-Disciplinary Progress Notes: Multi-Disciplinary Progress Notes 09/17/23 15:23 Pharmacy Note by Kushal Mixon dose reduced to q12h per renal dosing policy. Estimate crcl is 25ml/min. Initialized on 09/17/23 15:23 - END OF NOTE <JOHN RODRIGUEZ - Last Filed: 09/18/23 14:23> Vital Signs: Vital Signs - 24 hr Temp Pulse Resp BP Pulse Ox 09/18/23 19:27 96.4 F 70 18 130/77 98 09/18/23 19:03 97 09/18/23 16:00 96.8 F 69 17 118/72 95 09/18/23 12:58 16 09/18/23 12:00 96.9 F 69 12 130/79 96 09/18/23 08:00 16 09/18/23 07:37 98 09/18/23 07:31 96.9 F 69 16 128/75 95 09/18/23 04:00 96.8 F 69 22 128/72 99 09/18/23 00:00 19 09/17/23 23:56 97.8 F 70 19 114/67 97 Pain Assessment - Last Documented Pain Intensity 10 Pain Scale Used 0-10 Pain Scale Intake and Output: Intake & Output 09/16/23 09/17/23 09/18/23 09/19/23 11:59 11:59 11:59 11:59 Intake Total 808 2409 1096 840 Output Total 250 Balance 558 2409 1096 840 Weight 115.8 kg Lab Results: Lab Results-Last 24 Hours 09/18/23 09/18/23 09/18/23 Range/Units 04:32 04:32 07:22 WBC 15.9 H (4.0-10.5) x10^3/uL RBC 4.08 L (4.1-5.6) x10^6/uL Hgb 12.7 (12.5-18.0) g/dL Hct 38.0 L (42-50) % MCV 93.1 (78-100) fL MCH 31.1 (26-32) pg MCHC 33.4 (32-36) g/dL RDW 13.5 (11.5-14.0) % Plt Count 191 (150-450) x10^3/uL MPV 10.8 (7.5-11.0) fL Sodium 133 L (137-145) mmol/L Potassium 3.8 (3.5-5.1) mmol/L Chloride 96 L (98-107) mmol/L Carbon Dioxide 25 (22-30) mmol/L Anion Gap 15.8 H (5-15) MEQ/L BUN 110 H (9-20) mg/dL Creatinine 2.49 H (0.66-1.25) mg/dL Estimated GFR 25.3 ML/MIN Glucose 195 H (74-106) mg/dL POC Glucometer 168 H (74 to 106) mg/dL Calcium 9.4 (8.4-10.2) mg/dL Total Bilirubin 1.50 H (0.2-1.3) mg/dL AST 29 (17-59) U/L ALT 25 (0-50) U/L Alkaline Phosphatase 82 (38-126) U/L Serum Total Protein 7.4 (6.3-8.2) g/dL Albumin 4.2 (3.5-5.0) g/dL 09/18/23 09/18/23 Range/Units 11:59 17:26 WBC (4.0-10.5) x10^3/uL RBC (4.1-5.6) x10^6/uL Hgb (12.5-18.0) g/dL Hct (42-50) % MCV (78-100) fL MCH (26-32) pg MCHC (32-36) g/dL RDW (11.5-14.0) % Plt Count (150-450) x10^3/uL MPV (7.5-11.0) fL Sodium (137-145) mmol/L Potassium (3.5-5.1) mmol/L Chloride (98-107) mmol/L Carbon Dioxide (22-30) mmol/L Anion Gap (5-15) MEQ/L BUN (9-20) mg/dL Creatinine (0.66-1.25) mg/dL Estimated GFR ML/MIN Glucose (74-106) mg/dL POC Glucometer 226 H 99 (74 to 106) mg/dL Calcium (8.4-10.2) mg/dL Total Bilirubin (0.2-1.3) mg/dL AST (17-59) U/L ALT (0-50) U/L Alkaline Phosphatase (38-126) U/L Serum Total Protein (6.3-8.2) g/dL Albumin (3.5-5.0) g/dL Radiology Exams: Radiology Procedures Category Date Time Status ABDOMEN AND PELVIS W/0 CONTRAS [CT] Routine Exams 09/17/23 10:07 Completed GALLBLADDER [US] Urgent Exams 09/19/23 08:00 Stop Req KUB Stat Exams 09/18/23 18:24 Ordered Ultrasound Gallbladder [GALLBLADDER] [US] Urgent Exams 09/18/23 14:19 Completed <RODO HEATH - Last Filed: 09/18/23 21:19> Assessment/Plan (1) Hypokalemia Current Visit: Yes Status: Acute Assessment & Plan: - Bumex and metolazone held - Zofran for N/V - K+ slowly improving- trend - repeat labs Q4 hr 09/17 - Resolved K+ 4.5 Code(s): E87.6 - HYPOKALEMIA (2) Renal failure Current Visit: Yes Status: Acute Qualifiers: Renal failure chronicity: acute on chronic Chronic kidney disease stage: stage 5, not on chronic dialysis Assessment & Plan: - Improving today- trend labs - Gentle hydration 09/12 NS with 20kcl @ 70 - Follows Dr. Vela for nephrology and has an appointment scheduled for Monday. 09/17 - will not be able to make appointment tomorrow so this will need to be rescheduled. - SAILAJA resolved 09/18: -D/C 1/2NS, will start NS at 75ml/hr (3) Elevated troponin Current Visit: No Status: Acute Assessment & Plan: - Trop 0.658, 0.532, 0.511 - denies CP - most likely 2:2 SAILAJA Code(s): R79.89 - OTHER SPECIFIED ABNORMAL FINDINGS OF BLOOD CHEMISTRY (4) Leukocytosis Current Visit: No Status: Acute Assessment & Plan: - WBC 11.9- improved - Most likely stress response, no fever - BC X2 pending 09/17/23 - BC X2 negative - WBC 12 09/18: -Urine/blood cult with NGTD -Abdominal US ordered ?cholecystitis/diverticulitis -Continue Unasyn Code(s): D72.829 - ELEVATED WHITE BLOOD CELL COUNT, UNSPECIFIED (5) Type II diabetes mellitus Current Visit: Yes Status: Acute Assessment & Plan: - Lantus 45 units at HS- held for now -Novolog 15 units with meals - Humalog S/S- low dose - A1C - 8.12 - uncontrolled (6) Obesity (BMI 30.0-34.9) Current Visit: Yes Status: Acute Assessment & Plan: - advised diet and exercise control Code(s): E66.9 - OBESITY, UNSPECIFIED (7) Constipation Current Visit: Yes Status: Chronic Assessment & Plan: - resolved - Miralax - CT abd for LLQ pain 09/17/23 IMPRESSION: Redemonstrated colonic diverticulosis with proximal sigmoid colon medial wall related exophytic lobulated shape soft tissue lesion with internal coarse calcifications, measuring 36 x 16 mm ? impacted calcified content within a large diverticulum, however, neoplastic etiology can't be excluded. Left renal two isodense cysts Newly demonstrated ovoid dense FB is seen at mid small bowel loop ? drug, with a prominent small segment of the proximal bowel, clinical correlation is needed. Redemonstrated cholelithiasis without CT evidence of cholecystitis. Progression of bilateral mild-size free pleural effusion with underlying parenchymal bands. Redemonstration of mild enlarged cardiac size with evidence of cardiac surgery. Rest of the findings mentioned above. VTE: Heparin Next of KIN: Esme Johnson [phone] D/C plan: tomorrow Code status: SCO/DNR Code(s): E87.6 - HYPOKALEMIA (2) Obesity (BMI 30.0-34.9) Current Visit: Yes Status: Acute Code(s): E66.9 - OBESITY, UNSPECIFIED (3) Renal failure Current Visit: Yes Status: Acute Qualifiers: Renal failure chronicity: acute on chronic Chronic kidney disease stage: stage 5, not on chronic dialysis (4) Type II diabetes mellitus Current Visit: Yes Status: Acute (5) Constipation Current Visit: Yes Status: Chronic Code(s): K59.00 - CONSTIPATION, UNSPECIFIED (6) Abdominal pain Current Visit: No Status: Acute Code(s): R10.9 - UNSPECIFIED ABDOMINAL PAIN (7) Elevated troponin Current Visit: No Status: Acute Code(s): R79.89 - OTHER SPECIFIED ABNORMAL FINDINGS OF BLOOD CHEMISTRY (8) Leukocytosis Current Visit: No Status: Acute Code(s): D72.829 - ELEVATED WHITE BLOOD CELL COUNT, UNSPECIFIED <JOHN RODRIGUEZ - Last Filed: 09/18/23 14:23> ALYSON Encounter - ALYSON Encounter Attestation ALYSON Encounter Attestation: "AnnalyscrispinexamineMERRY Brennan andhavediscussed pe rtinent aspects of their care with John Lorenzo agree with the history, physical exam (any modifications based on my personal exam will be noted below), assessment, and plan as outlined in original note. Please see immediately below for my summary of findings and additional assessment and plan along with any meaningful corrections/explanations to the Subjective/Objective portions of the ALYSON note will be noted." My portion of the encounter took place via telemedicine. -Patient complained of 9/10 LLQ abdominal pain. RUQ ultrasound done due to increasing bilirubin and WBC however no report of acute cholecystitis. Patient refusing to undergo repeat x ray or CT scan. Surgery also evaluated patient. Continue IV antibiotics for now. <RODO HEATH - Last Filed: 09/18/23 21:19>
[2023-09-18 05:24] LABS: ALBUMIN 4.2 g/dL (3.5-5.0); BILIRUBIN,TOTAL 1.5 mg/dL (0.2-1.3); Calcium 9.4 mg/dL (8.4-10.2); Creatinine 1 2.49 mg/dL (0.66-1.25); EST GLOMERULAR FILTRATION RATE 25.3 ML/MIN; Total Protein 7.4 g/dL (6.3-8.2)
[2023-09-18 05:25] LABS: Potassium 3.8 mmol/L (3.5-5.1)
[2023-09-18 05:44] LABS: ANION GAP 15.8 MEQ/L (5-15)
[2023-09-18] MEDS: Unasyn 3 GM Vial*** 3 G in Sodium Chloride 100ML MINI-BAG PLUS 100 ML IV SCH ×2 (05:58→17:51)
[2023-09-18] MEDS: Sodium Chloride 0.9% 1000 ML 1,000 ML IV SCH ×2 (07:38→14:41)
--- NOTE | 2023-09-18 08:02 | CONS ---
CONSULT DATE: 09/17/2023 HISTORY: Herve Perez is 82. He is elderly. He is in room 105. He was seen directly at the bedside. His belly was examined. It is soft. It is distended. He said he can almost feel something in the left upper quadrant. He may be able to feel a little bit of something here. His CT scan showed a 3.5 cm calcified lesion with just some cholecystitis almost certainly benign. I do not think it really has much to do with his issues at the moment. He does have diverticulosis. He is feeling better. He is on a soft diet. He has not been started on antibiotics so we are starting him on some IV antibiotics followed by p.o. antibiotics. He has renal failure. He has an appointment with renal tomorrow. He is not sure whether he is going to go Hospice or whether he is going to try venture into dialysis of some sort. The family is with him today. IMPRESSION: I think if he probably can be discharged on his soft diet, I would leave him on the antibiotics for a week. We could do a colonoscopy at some time. He had a colonoscopy about a year ago that was satisfactory. They went through it and did not find anything major. I do not think there is anything pressing here today from a colon viewpoint.
[2023-09-18] MEDS: HUMALOG SQ SCH ×3 (08:28→17:29)
[2023-09-18] MEDS: Hydromorphone 1 mg/ml Injection IV PRN ×2 (09:29→16:55)
[2023-09-18] MEDS: HEPARIN 5000 UNITS/0.5 ML (HIGH RISK MED) SQ SCH ×2 (10:26→21:56)
[2023-09-18] MEDS: Klor Con PO SCH ×2 (10:27→21:56)
[2023-09-18] MEDS: THERAGRAN MULTIVITAMIN PO SCH (10:27)
[2023-09-18] MEDS: Vitamin C 500 MG PO SCH (10:27)
[2023-09-18] MEDS: COREG 12.5 MG PO SCH ×2 (10:28→21:56)
[2023-09-18] MEDS: Miralax Powder 17GM PACKET PO SCH (10:28)
--- NOTE | 2023-09-18 15:54 | CONS ---
CONSULT DATE: 2023 REASON FOR CONSULT: Second opinion. HISTORY: The patient is an 82-year-old patient seen. Patient of Dr. Rivera. He had been seen by Dr. Doug Woodall yesterday. He was initially admitted for low potassium and he had some nausea. He developed some left abdominal pain. He has some chronic renal insufficiency. He is going to see Dr. Vela about possibly initiating dialysis access or dialysis at some point. PAST MEDICAL HISTORY: He has had obesity, hypercholesterolemia, hypertension, diabetes mellitus type II, gastroenteritis. He had some melanoma in the past. He had coronary stents, defibrillator/pacemaker in the past. PAST SURGICAL HISTORY: He had melanoma removed. 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 MEDICATIONS: Bumetanide, carvedilol, Farxiga, potassium chloride, ropinirole, rosuvastatin, Ambien, vitamin C, NovoLog, Toujeo, Centrum Silver, gabapentin, hydrocodone/acetaminophen, metolazone, Verquvo. ALLERGIES: NKDA. FAMILY HISTORY: Negative in regards to this specific problem. SOCIAL HISTORY: No known drug allergies. No alcohol abuse. REVIEW OF SYSTEMS: Fourteen systems reviewed per admission assessment. He has had some back problems in the past. He has been seen by Dr. Xavier for injection not too long ago. He said he has had some of that pain since. He had sciatica, left shoulder pain. History as noted above. PHYSICAL EXAMINATION: GENERAL: No acute distress. VITAL SIGNS: Afebrile. HEENT: Sclera nonicteric. EOMI. Oral mucous membranes moist. NECK: No JVD. CHEST: Equal excursion, nonlabored breathing. CVS: Regular rate and rhythm. ABDOMEN: Obese, soft. He has some tenderness left mid to lower abdomen. EXTREMITIES: No cyanosis. NEURO: Alert, oriented. PSYCH: Appropriate mood and affect. SKIN: Dry. IMPRESSION: CT scan films were personally reviewed with Dr. Parveen Guzman, Radiologist. He does have some calcified gallstones although his gallbladder is not distended and does not have any pain over it. He had more distention on CT scan last December or January. There is no finding of free air or collections. He does have a calcified area in the sigmoid colon that is calcified concretions or other etiology. There is no reaction around this and the size seems unchanged from back in December or January last year. There are no signs of cholecystitis. He does have new pleural effusion compared to CT last year that began his issues particularly his lumbar spine. He has had the pain for three or four days and the CT scan was done. Again, Dr. Guzman did not see any signs of any collections, any signs of free air or any reaction around this calcific density involving the sigmoid area. Otherwise, I would recommend adding Flagyl as he is already on Unasyn to treat any colitis or diverticulitis-type source. Could consider colonoscopy at some point. If he has diverticulitis might be better to get over this acute issue. He is not having any bloody stools. He has erosive ischemic colitis at this point. Otherwise, he could also consider checking MRI thoracic lumbar spine to rule out other referred pain from back problems as he has had back problems in the past and had injections in the past. I had a long discussion with the patient and multiple family members in the room. They wanted a second opinion. Dr. Woodall called yesterday. At this time will add Flagyl on top of Unasyn he is already getting, consider MRI thoracic and lumbar spine to rule out other causes, continue medical management. He is not a very good surgical candidate should he have something that required surgery anyway. In view of the CT scan just done yesterday and he already had the pain for two or three days, does not show any apparent acute surgical process at this point. He has a calcified density that seems unchanged from last year. Differential could include other musculoskeletal or abdominal wall issues although there does not appear to be any obvious neoplasia in the abdominal wall. Whether he has muscle strain, referred pain from back or whether this is diverticulitis or colitis etiology either way continue IV antibiotics and Flagyl. Consider MRI lumbar spine, consider meeting with Dr. Xavier to see that this looks like. Again, I am dictating second opinion on a patient who had been seen by Dr. Doug Woodall.
--- NOTE | 2023-09-18 16:35 | XRAY ---
Indication: Cholelithiasis on CT one day earlier complaining of left lower quadrant pain. Today right upper quadrant pain. Two-dimensional gallbladder sonogram performed. Comparison: February 01, 2022 Several bowel gas limits exam. Visualized gallbladder is now partially contracted with worsening cholelithiasis. No abnormal color wall thickening or pericholecystic fluid. Common bile duct measures 6.6 mm. No intrahepatic biliary distention. Remaining visualized liver, pancreas, right kidney are sonographically unremarkable. Right kidney measures 11.9 cm in length. Impression: Worsening cholelithiasis. Negative for acute cholecystitis or biliary distention.
[2023-09-18] MEDS: FLAGYL 500 MG IVPB 500 MG/100 ML BAG IV SCH ×2 (16:54→22:05)
[2023-09-18] MEDS: Zofran 4 MG/2 ML VIAL IV PRN (18:30)
[2023-09-18] MEDS: MORPHINE SULFATE 2 MG INJ IV PRN (20:07)
[2023-09-18] MEDS: ZOCOR 20MG PO SCH (21:56)
[2023-09-18] MEDS: Requip 0.5 MG PO SCH (21:56)
[2023-09-18] MEDS: PERCOCET TABLET 5/325MG PO PRN (21:57)
[2023-09-18] MEDS: Compazine 10 MG/2 ML IV PRN (21:57)
[2023-09-18] MEDS: Ambien 10 MG PO PRN (22:05)
[2023-09-19] MEDS: MORPHINE SULFATE 2 MG INJ IV PRN ×6 (01:48→16:53)
[2023-09-19] MEDS: Sodium Chloride 0.9% 1000 ML 1,000 ML IV SCH (03:58)
[2023-09-19] MEDS: Zofran 4 MG/2 ML VIAL IV PRN ×2 (04:10→13:55)
[2023-09-19] MEDS: PERCOCET TABLET 5/325MG PO PRN ×2 (04:10→14:03)
--- NOTE | 2023-09-19 05:12 | PCM.NOTE ---
Date and Time: 09/19/23 0509 Subjective Assessment: Mr. Perez is an 82 year old male with a pmhx of DMII, HTN, CAD, CKD 5 admitted with SAILAJA/CKD and severe hypokalemia. Potassium is back to normal and renal function is improved and at baseline. During hospital course, patient has had complaints of LLQ pain with tenderness. CT scan did not show acute diver ticulitis. There is some sort of lesion in his colon which could be malignant. Patient talked about going home on hospice but ultimately decided to stay to try to get his pain relieved. Surgery consulted for evaluation of abnormal CT scan. No surgical intervention needed. Surgery did suggest possible diverticulitis and started patient on Unasyn. Case management to discuss hospice options. 09/18/23: Met with patient bedside. Family present. Endorses continued low abdominal pain 9/10 on numerical pain scale and nausea with hot flashes with meals. Family requesting re-consult with surgeon to discuss colonic mass. Patient requesting consult with nephrology, labs are now at baseline, spoke with nephrology regarding patient, they will follow up as OP, they have called family to advise. Denies fever,cough, sob, cp, DELONG, dizziness,V/D. Objective Exam Wound Assessment: Skin/Wound Assessment Wound/Incision Assessment Start: 09/16/23 11:03 Text: Status: Active Freq: Q6H Protocol: Document 09/19/23 02:00 JOEL (Rec: 09/19/23 02:09 JOEL [id number]) Wound/Incision Assessment Left Medial Buttock Wound Assessment Shift Assessment Wound Type SEE BELOW Drainage Amount None Drainage Odor None/Absent Comment BARRIER CREAM APPLIED, 2CM X 1 CM STAGE II ALSO A 2CM X 1CM HEALING STAGE II PRESENT Wound Photo Photo Taken No OBJECTIVE DATA Vital Signs: Vital Signs - 24 hr Temp Pulse Resp BP Pulse Ox 09/19/23 00:00 96.8 F 68 18 120/68 97 09/18/23 19:27 96.4 F 70 18 130/77 98 09/18/23 19:03 97 09/18/23 16:00 96.8 F 69 17 118/72 95 09/18/23 12:58 16 09/18/23 12:00 96.9 F 69 12 130/79 96 09/18/23 08:00 16 09/18/23 07:37 98 09/18/23 07:31 96.9 F 69 16 128/75 95 Pain Assessment - Last Documented Pain Intensity 10 Pain Scale Used 0-10 Pain Scale Intake and Output: Intake & Output 09/16/23 09/17/23 09/18/23 09/19/23 11:59 11:59 11:59 11:59 Intake Total 808 2409 1096 840 Output Total 250 Balance 558 2409 1096 840 Weight 115.8 kg Lab Results: Lab Results-Last 24 Hours 09/18/23 09/18/23 09/18/23 Range/Units 04:32 07:22 11:59 Sodium 133 L (137-145) mmol/L Potassium 3.8 (3.5-5.1) mmol/L Chloride 96 L (98-107) mmol/L Carbon Dioxide 25 (22-30) mmol/L Anion Gap 15.8 H (5-15) MEQ/L BUN 110 H (9-20) mg/dL Creatinine 2.49 H (0.66-1.25) mg/dL Estimated GFR 25.3 ML/MIN Glucose 195 H (74-106) mg/dL POC Glucometer 168 H 226 H (74 to 106) mg/dL Calcium 9.4 (8.4-10.2) mg/dL Total Bilirubin 1.50 H (0.2-1.3) mg/dL AST 29 (17-59) U/L ALT 25 (0-50) U/L Alkaline Phosphatase 82 (38-126) U/L Serum Total Protein 7.4 (6.3-8.2) g/dL Albumin 4.2 (3.5-5.0) g/dL 09/18/23 09/18/23 Range/Units 17:26 21:55 Sodium (137-145) mmol/L Potassium (3.5-5.1) mmol/L Chloride (98-107) mmol/L Carbon Dioxide (22-30) mmol/L Anion Gap (5-15) MEQ/L BUN (9-20) mg/dL Creatinine (0.66-1.25) mg/dL Estimated GFR ML/MIN Glucose (74-106) mg/dL POC Glucometer 99 124 H (74 to 106) mg/dL Calcium (8.4-10.2) mg/dL Total Bilirubin (0.2-1.3) mg/dL AST (17-59) U/L ALT (0-50) U/L Alkaline Phosphatase (38-126) U/L Serum Total Protein (6.3-8.2) g/dL Albumin (3.5-5.0) g/dL Radiology Exams: Radiology Procedures Category Date Time Status ABDOMEN AND PELVIS W/0 CONTRAS [CT] Routine Exams 09/17/23 10:07 Completed GALLBLADDER [US] Urgent Exams 09/19/23 08:00 Stop Req KUB Stat Exams 09/18/23 18:24 Ordered Ultrasound Gallbladder [GALLBLADDER] [US] Urgent Exams 09/18/23 14:19 Completed Assessment/Plan (1) Hypokalemia Current Visit: Yes Status: Acute Assessment & Plan: (1) Hypokalemia Current Visit: Yes Status: Acute Assessment & Plan: - Bumex and metolazone held - Zofran for N/V - K+ slowly improving- trend - repeat labs Q4 hr 09/17 - Resolved K+ 4.5 Code(s): E87.6 - HYPOKALEMIA (2) Renal failure Current Visit: Yes Status: Acute Qualifiers: Renal failure chronicity: acute on chronic Chronic kidney disease stage: stage 5, not on chronic dialysis Assessment & Plan: - Improving today- trend labs - Gentle hydration 1/2 NS with 20kcl @ 70 - Follows Dr. Vela for nephrology and has an appointment scheduled for Monday. 09/17 - will not be able to make appointment tomorrow so this will need to be rescheduled. - SAILAJA resolved 09/18: -D/C 1/2NS, will start NS at 75ml/hr (3) Elevated troponin Current Visit: No Status: Acute Assessment & Plan: - Trop 0.658, 0.532, 0.511 - denies CP - most likely 2:2 SAILAJA Code(s): R79.89 - OTHER SPECIFIED ABNORMAL FINDINGS OF BLOOD CHEMISTRY (4) Leukocytosis Current Visit: No Status: Acute Assessment & Plan: - WBC 11.9- improved - Most likely stress response, no fever - BC X2 pending 09/17/23 - BC X2 negative - WBC 12 09/18: -Urine/blood cult with NGTD -Abdominal US ordered ?cholecystitis/diverticulitis -Continue Unasyn Code(s): D72.829 - ELEVATED WHITE BLOOD CELL COUNT, UNSPECIFIED (5) Type II diabetes mellitus Current Visit: Yes Status: Acute Assessment & Plan: - Lantus 45 units at HS- held for now -Novolog 15 units with meals - Humalog S/S- low dose - A1C - 8.12 - uncontrolled (6) Obesity (BMI 30.0-34.9) Current Visit: Yes Status: Acute Assessment & Plan: - advised diet and exercise control Code(s): E66.9 - OBESITY, UNSPECIFIED (7) Constipation Current Visit: Yes Status: Chronic Assessment & Plan: - resolved - Miralax - CT abd for LLQ pain 09/17/23 IMPRESSION: Redemonstrated colonic diverticulosis with proximal sigmoid colon medial wall related exophytic lobulated shape soft tissue lesion with internal coarse calcifications, measuring 36 x 16 mm ? impacted calcified content within a large diverticulum, however, neoplastic etiology can't be excluded. Left renal two isodense cysts Newly demonstrated ovoid dense FB is seen at mid small bowel loop ? drug, with a prominent small segment of the proximal bowel, clinical correlation is needed. Redemonstrated cholelithiasis without CT evidence of cholecystitis. Progression of bilateral mild-size free pleural effusion with underlying parenchymal bands. Redemonstration of mild enlarged cardiac size with evidence of cardiac surgery. Rest of the findings mentioned above. VTE: Heparin Next of KIN: Esme Johnson [phone] D/C plan: tomorrow Code status: SCO/DNR Code(s): E87.6 - HYPOKALEMIA Code(s): E87.6 - HYPOKALEMIA (2) Obesity (BMI 30.0-34.9) Current Visit: Yes Status: Acute Code(s): E66.9 - OBESITY, UNSPECIFIED (3) Renal failure Current Visit: Yes Status: Acute Qualifiers: Renal failure chronicity: acute on chronic Chronic kidney disease stage: stage 5, not on chronic dialysis (4) Type II diabetes mellitus Current Visit: Yes Status: Acute (5) Constipation Current Visit: Yes Status: Chronic Code(s): K59.00 - CONSTIPATION, UNSPECIFIED (6) Abdominal pain Current Visit: No Status: Acute Code(s): R10.9 - UNSPECIFIED ABDOMINAL PAIN (7) Elevated troponin Current Visit: No Status: Acute Code(s): R79.89 - OTHER SPECIFIED ABNORMAL FINDINGS OF BLOOD CHEMISTRY (8) Leukocytosis Current Visit: No Status: Acute Code(s): D72.829 - ELEVATED WHITE BLOOD CELL COUNT, UNSPECIFIED
[2023-09-19 05:24] VITALS: RESP 16
[2023-09-19] MEDS: FLAGYL 500 MG IVPB 500 MG/100 ML BAG IV SCH ×2 (05:29→13:55)
[2023-09-19] MEDS: Unasyn 3 GM Vial*** 3 G in Sodium Chloride 100ML MINI-BAG PLUS 100 ML IV SCH (06:22)
[2023-09-19 08:02] VITALS: PULSE 68; TEMP 97.9
[2023-09-19] MEDS: Compazine 10 MG/2 ML IV PRN (08:33)
[2023-09-19 09:07] LABS: Absolute Neutrophil Ct (ANC) 9.53 x10^3/uL (1.4-6.9); BASOPHIL % 0.2 % (0.0-0.4); Basophil (Absolute #) 0.02 x10^3/uL (0-0.4); Eosinophil % 2.2 % (0.00-5.0); Eosinophil (Absolute #) 0.26 x10^3/uL (0-0.5); Hematocrit 36.9 % (42-50); Hemoglobin 12.1 g/dL (12.5-18.0); IMMATURE GRAN # 0.05 x10^3u/L (0.00-0.03); IMMATURE GRAN % 0.4 % (0.00-0.4); Lymphocytes % 9.3 % (24.0-44.0); Mean Cell Volume 94.9 fL (78-100); Mean Corpuscular Hemoglobin 31.1 pg (26-32); Mean Corpuscular Hgb Concent. 32.8 g/dL (32-36); Mean Platelet Volume 10.5 fL (7.5-11.0); Monocytes % 7.6 % (0.0-12.0); Neutrophil % 80.3 % (36.0-66.0); Platelet Count 153 x10^3/uL (150-450); Red Blood Count 3.89 x10^6/uL (4.1-5.6); Red Cell Distribution Width 13.5 % (11.5-14.0); White Blood Count 11.9 x10^3/uL (4.0-10.5)
[2023-09-19 09:20] LABS: ALBUMIN 3.8 g/dL (3.5-5.0); ANION GAP 12.4 MEQ/L (5-15); BILIRUBIN,TOTAL 1.6 mg/dL (0.2-1.3); Calcium 9.3 mg/dL (8.4-10.2); Creatinine 1 1.91 mg/dL (0.66-1.25); EST GLOMERULAR FILTRATION RATE 34.8 ML/MIN; Potassium 3.4 mmol/L (3.5-5.1); Total Protein 6.9 g/dL (6.3-8.2)
[2023-09-19] MEDS: HEPARIN 5000 UNITS/0.5 ML (HIGH RISK MED) SQ SCH (09:34)
[2023-09-19] MEDS: Vitamin C 500 MG PO SCH (09:35)
[2023-09-19] MEDS: THERAGRAN MULTIVITAMIN PO SCH (09:35)
[2023-09-19] MEDS: COREG 12.5 MG PO SCH (09:35)
[2023-09-19] MEDS: Klor Con PO SCH (09:36)
[2023-09-19] MEDS: Miralax Powder 17GM PACKET PO SCH (09:39)
[2023-09-19] MEDS: HUMALOG SQ SCH ×2 (09:40→12:48)
--- NOTE | 2023-09-19 11:33 | PCM.DCORD ---
- Discharge Disposition: Home, Self-Care Condition: Fair Prescriptions: New Amoxicillin/Potassium Clav [Augmentin 500-125 Tablet] 1 each PO BID 10 Days #20 tablet Continue Ropinirole HCl 1 mg PO HS Carvedilol 12.5 mg [Coreg 12.5 mg] 12.5 mg PO BID Dapagliflozin Propanediol [Farxiga] 10 mg PO DAILY Potassium Chloride 20 meq PO BID Rosuvastatin Calcium 20 mg PO HS Zolpidem Tartrate 10 mg [Ambien 10 MG] 10 mg PO HS PRN PRN Reason: Insomnia Bumetanide 4 mg PO DAILY Insulin Glargine,Hum.rec.anlog [Toujeo Max Solostar] 45 units SQ QHS Ascorbic Acid [Vitamin C] 1 tab PO DAILY Multivit-Min/FA/Lycopen/Lutein [Centrum Silver Tablet] 1 tab PO DAILY Insulin Aspart [Novolog] 15 unit SQ UD Gabapentin 600 mg PO TID metOLazone [Metolazone] 5 mg PO UD Hydrocodone/Acetaminophen [Hydrocodone-Acetamin 7.5-325] 1 tab PO TID Bumetanide 2 mg PO LUNCH Vericiguat [Verquvo] 5 mg PO DAILY Instructions: Hypokalemia (DC), Kidney Failure (DC) Additional Instructions: Can use Miralax for constipation if needed OTC. Follow up with: LÓPEZ DE GUZMAN [Primary Care Provider] - NASEEM LOO [Family Provider] -
--- NOTE | 2023-09-19 11:38 | PCM.DS ---
Discharge Summary Date of Admission: 09/16/23 09:00 Date of Discharge: 09/19/23 Admitting Physician: ALESSANDRO SY DO Consults: Consults on Case 09/17/23 12:27 Consult Surgery ROUTINE 09/18/23 18:25 Consult Surgery ROUTINE Primary Care Provider: LÓPEZ DE GUZMAN <JOHN RODRIGUEZ - Last Filed: 09/19/23 11:34> Date of Admission: 09/16/23 09:00 Date of Discharge: 09/17/23 Admitting Physician: ALESSANDRO SY DO Consults: Consults on Case 09/17/23 12:27 Consult Surgery ROUTINE 09/18/23 18:25 Consult Surgery ROUTINE Primary Care Provider: LÓPEZ DE GUZMAN <RODO HEATH - Last Filed: 09/19/23 21:54> Allergies <JOHN RODRIGUEZ - Last Filed: 09/19/23 11:34> <RODO HEATH - Last Filed: 09/19/23 21:54> Allergies No Known Drug Allergies Allergy (Verified 09/15/23 16:23) Hospital Summary - Hospital Course Hospital Course: Mr. Perez is an 82 year old male with a pmhx of DMII, HTN, CAD, CKD 5 admitted with SAILAJA/CKD and severe hypokalemia. Potassium is back to normal and renal function is improved and at baseline. During hospital course, patient has had complaints of LLQ pain with tenderness. CT scan did not show acute diverticulitis. There is some sort of lesion in his colon which could be malignant. Surgery consulted for evaluation of abnormal CT scan. Patient not a surgical candidate. Surgery did suggest possible diverticulitis and started patient on Unasyn. Labs are now at baseline. Patient does not wish for any further imaging or intervention, would like to go home with hospice to manage pain. Discharge Note Latest Assessment & Plan - Bumex and metolazone held - Zofran for N/V - K+ slowly improving- trend - repeat labs Q4 hr 09/17 - Resolved K+ 4.5 Code(s): E87.6 - HYPOKALEMIA (2) Renal failure Current Visit: Yes Status: Acute Qualifiers: Renal failure chronicity: acute on chronic Chronic kidney disease stage: stage 5, not on chronic dialysis Assessment & Plan: - Improving today- trend labs - Gentle hydration 1/2 NS with 20kcl @ 70 - Follows Dr. Vela for nephrology and has an appointment scheduled for Monday. 09/17 - will not be able to make appointment tomorrow so this will need to be rescheduled. - SAILAJA resolved 09/18: -D/C 1/2NS, will start NS at 75ml/hr (3) Elevated troponin Current Visit: No Status: Acute Assessment & Plan: - Trop 0.658, 0.532, 0.511 - denies CP - most likely 2:2 SAILAJA Code(s): R79.89 - OTHER SPECIFIED ABNORMAL FINDINGS OF BLOOD CHEMISTRY (4) Leukocytosis Current Visit: No Status: Acute Assessment & Plan: - WBC 11.9- improved - Most likely stress response, no fever - BC X2 pending 09/17/23 - BC X2 negative - WBC 12 09/18: -Urine/blood cult with NGTD -Abdominal US ordered ?cholecystitis/diverticulitis -Continue Unasyn Code(s): D72.829 - ELEVATED WHITE BLOOD CELL COUNT, UNSPECIFIED (5) Type II diabetes mellitus Current Visit: Yes Status: Acute Assessment & Plan: - Lantus 45 units at HS- held for now -Novolog 15 units with meals - Humalog S/S- low dose - A1C - 8.12 - uncontrolled (6) Obesity (BMI 30.0-34.9) Current Visit: Yes Status: Acute Assessment & Plan: - advised diet and exercise control Code(s): E66.9 - OBESITY, UNSPECIFIED (7) Constipation Current Visit: Yes Status: Chronic Assessment & Plan: - resolved - Miralax - CT abd for LLQ pain 09/17/23 IMPRESSION: Redemonstrated colonic diverticulosis with proximal sigmoid colon medial wall related exophytic lobulated shape soft tissue lesion with internal coarse calcifications, measuring 36 x 16 mm ? impacted calcified content within a large diverticulum, however, neoplastic etiology can't be excluded. Left renal two isodense cysts Newly demonstrated ovoid dense FB is seen at mid small bowel loop ? drug, with a prominent small segment of the proximal bowel, clinical correlation is needed. Redemonstrated cholelithiasis without CT evidence of cholecystitis. Progression of bilateral mild-size free pleural effusion with underlying parenchymal bands. Redemonstration of mild enlarged cardiac size with evidence of cardiac surgery. Rest of the findings mentioned above. I spent 35 minutes vhor-as-edll with the patient on the day of discharge performing discharge exam, discussing hospital stay and discharge instructions with patient and caregivers, preparation of discharge records, prescriptions & referral forms and addressing any questions/concerns the patient had as documented above. - Vitals & Intake/Output Vital Signs: Vital Signs Temperature 97.9 F 09/19/23 08:00 Pulse Rate 68 09/19/23 08:00 Respiratory Rate 16 09/19/23 08:00 Blood Pressure 115/61 09/19/23 08:00 O2 Sat by Pulse Oximetry 99 09/19/23 08:00 Intake & Output: Intake & Output 09/16/23 09/17/23 09/18/23 09/19/23 11:59 11:59 11:59 11:59 Intake Total 808 2409 1096 2607 Output Total 250 400 Balance 558 2409 1096 2207 Weight 115.8 kg - Lab Result Diagrams: 09/19/23 09:00 09/19/23 09:00 Lab Results-Last 24 Hrs: Lab Results-Last 24 Hours 09/18/23 09/18/23 09/18/23 Range/Units 11:59 17:26 21:55 WBC (4.0-10.5) x10^3/uL RBC (4.1-5.6) x10^6/uL Hgb (12.5-18.0) g/dL Hct (42-50) % MCV (78-100) fL MCH (26-32) pg MCHC (32-36) g/dL RDW (11.5-14.0) % Plt Count (150-450) x10^3/uL MPV (7.5-11.0) fL Gran % (36.0-66.0) % Immature Gran % (Auto) (0.00-0.4) % Nucleat RBC Rel Count (0.00-0.1) % Eos # (Auto) (0-0.5) x10^3/uL Immature Gran # (Auto) (0.00-0.03) x10^3u/L Absolute Lymphs (auto) (1.0-4.6) x10^3/uL Absolute Monos (auto) (0.0-1.3) x10^3/uL Absolute Nucleated RBC (0.00-0.01) x10^3u/L Lymphocytes % (24.0-44.0) % Monocytes % (0.0-12.0) % Eosinophils % (0.00-5.0) % Basophils % (0.0-0.4) % Absolute Granulocytes (1.4-6.9) x10^3/uL Basophils # (0-0.4) x10^3/uL Sodium (137-145) mmol/L Potassium (3.5-5.1) mmol/L Chloride (98-107) mmol/L Carbon Dioxide (22-30) mmol/L Anion Gap (5-15) MEQ/L BUN (9-20) mg/dL Creatinine (0.66-1.25) mg/dL Estimated GFR ML/MIN Glucose (74-106) mg/dL POC Glucometer 226 H 99 124 H (74 to 106) mg/dL Calcium (8.4-10.2) mg/dL Total Bilirubin (0.2-1.3) mg/dL AST (17-59) U/L ALT (0-50) U/L Alkaline Phosphatase (38-126) U/L Serum Total Protein (6.3-8.2) g/dL Albumin (3.5-5.0) g/dL 09/19/23 09/19/23 09/19/23 Range/Units 07:47 09:00 09:00 WBC 11.9 H (4.0-10.5) x10^3/uL RBC 3.89 L (4.1-5.6) x10^6/uL Hgb 12.1 L (12.5-18.0) g/dL Hct 36.9 L (42-50) % MCV 94.9 (78-100) fL MCH 31.1 (26-32) pg MCHC 32.8 (32-36) g/dL RDW 13.5 (11.5-14.0) % Plt Count 153 (150-450) x10^3/uL MPV 10.5 (7.5-11.0) fL Gran % 80.3 H (36.0-66.0) % Immature Gran % (Auto) 0.4 (0.00-0.4) % Nucleat RBC Rel Count 0.0 (0.00-0.1) % Eos # (Auto) 0.26 (0-0.5) x10^3/uL Immature Gran # (Auto) 0.05 H (0.00-0.03) x10^3u/L Absolute Lymphs (auto) 1.10 (1.0-4.6) x10^3/uL Absolute Monos (auto) 0.90 (0.0-1.3) x10^3/uL Absolute Nucleated RBC 0.00 (0.00-0.01) x10^3u/L Lymphocytes % 9.3 L (24.0-44.0) % Monocytes % 7.6 (0.0-12.0) % Eosinophils % 2.2 (0.00-5.0) % Basophils % 0.2 (0.0-0.4) % Absolute Granulocytes 9.53 H (1.4-6.9) x10^3/uL Basophils # 0.02 (0-0.4) x10^3/uL Sodium 136 L (137-145) mmol/L Potassium 3.4 L (3.5-5.1) mmol/L Chloride 101 (98-107) mmol/L Carbon Dioxide 26 (22-30) mmol/L Anion Gap 12.4 (5-15) MEQ/L BUN 86 H (9-20) mg/dL Creatinine 1.91 H (0.66-1.25) mg/dL Estimated GFR 34.8 ML/MIN Glucose 130 H (74-106) mg/dL POC Glucometer 120 H (74 to 106) mg/dL Calcium 9.3 (8.4-10.2) mg/dL Total Bilirubin 1.60 H (0.2-1.3) mg/dL AST 25 (17-59) U/L ALT 23 (0-50) U/L Alkaline Phosphatase 82 (38-126) U/L Serum Total Protein 6.9 (6.3-8.2) g/dL Albumin 3.8 (3.5-5.0) g/dL Micro Results-Entire Visit: Microbiology 09/15/23 17:46 Blood Culture - Preliminary Blood 09/15/23 17:35 Blood Culture - Preliminary Blood 09/15/23 17:00 Urine Culture - Final Clean Catch Midstream NO GROWTH Accuchecks Date 09/19/23 Date 09/18/23 Date 09/18/23 Time 08:00 Time 17:38 - Radiology Exams Ordered Rad Exams-Entire Visit: Radiology Procedures Category Date Time Status Ultrasound Gallbladder [GALLBLADDER] [US] Urgent Exams 09/18/23 14:19 Complet ed - Procedures and Test Procedures and Tests throughout Hospitalization: Therapy Orders & Screens 09/15/23 22:06 RT Screen per Nursing Assess ONCE Comment: Protocol Order Physician Instructions: Greater than 3 points order RT Admission Screen Reason For Exam: Triggered on Admission Diagnosis: renal failure; hypokalemia Diagnosis: renal failure; hypokalemia Pneumonia: No Home O2: No Asthma: No CHF: Yes Home CPAP/BIPAP: Yes Home Nebs/MDI: No Total Points: 8 09/15/23 22:49 Respiratory Therapy Assessment UD Comment: Diagnosis: renal failure; hypokalemia 09/15/23 22:56 BiPap/CPAP UD Comment: Diagnosis: renal failure; hypokalemia 09/17/23 02:56 EKG ROUTINE Comment: Diagnosis: renal failure; hypokalemia <JOHN RODRIGUEZ - Last Filed: 09/19/23 11:34> - Vitals & Intake/Output Vital Signs: Vital Signs Temperature 97.9 F 09/19/23 12:00 Pulse Rate 68 09/19/23 12:00 Respiratory Rate 16 09/19/23 14:00 Blood Pressure 128/75 09/19/23 12:00 O2 Sat by Pulse Oximetry 96 09/19/23 13:40 Intake & Output: Intake & Output 09/17/23 09/18/23 09/19/23 09/20/23 11:59 11:59 11:59 11:59 Intake Total 2409 1096 2607 0 Output Total 400 Balance 2409 1096 2207 0 - Lab Result Diagrams: 09/19/23 09:00 09/19/23 09:00 Lab Results-Last 24 Hrs: Lab Results-Last 24 Hours 09/18/23 09/19/23 09/19/23 Range/Units 21:55 07:47 09:00 WBC 11.9 H (4.0-10.5) x10^3/uL RBC 3.89 L (4.1-5.6) x10^6/uL Hgb 12.1 L (12.5-18.0) g/dL Hct 36.9 L (42-50) % MCV 94.9 (78-100) fL MCH 31.1 (26-32) pg MCHC 32.8 (32-36) g/dL RDW 13.5 (11.5-14.0) % Plt Count 153 (150-450) x10^3/uL MPV 10.5 (7.5-11.0) fL Gran % 80.3 H (36.0-66.0) % Immature Gran % (Auto) 0.4 (0.00-0.4) % Nucleat RBC Rel Count 0.0 (0.00-0.1) % Eos # (Auto) 0.26 (0-0.5) x10^3/uL Immature Gran # (Auto) 0.05 H (0.00-0.03) x10^3u/L Absolute Lymphs (auto) 1.10 (1.0-4.6) x10^3/uL Absolute Monos (auto) 0.90 (0.0-1.3) x10^3/uL Absolute Nucleated RBC 0.00 (0.00-0.01) x10^3u/L Lymphocytes % 9.3 L (24.0-44.0) % Monocytes % 7.6 (0.0-12.0) % Eosinophils % 2.2 (0.00-5.0) % Basophils % 0.2 (0.0-0.4) % Absolute Granulocytes 9.53 H (1.4-6.9) x10^3/uL Basophils # 0.02 (0-0.4) x10^3/uL Sodium (137-145) mmol/L Potassium (3.5-5.1) mmol/L Chloride (98-107) mmol/L Carbon Dioxide (22-30) mmol/L Anion Gap (5-15) MEQ/L BUN (9-20) mg/dL Creatinine (0.66-1.25) mg/dL Estimated GFR ML/MIN Glucose (74-106) mg/dL POC Glucometer 124 H 120 H (74 to 106) mg/dL Calcium (8.4-10.2) mg/dL Total Bilirubin (0.2-1.3) mg/dL AST (17-59) U/L ALT (0-50) U/L Alkaline Phosphatase (38-126) U/L Serum Total Protein (6.3-8.2) g/dL Albumin (3.5-5.0) g/dL 09/19/23 09/19/23 09/19/23 Range/Units 09:00 11:46 11:51 WBC (4.0-10.5) x10^3/uL RBC (4.1-5.6) x10^6/uL Hgb (12.5-18.0) g/dL Hct (42-50) % MCV (78-100) fL MCH (26-32) pg MCHC (32-36) g/dL RDW (11.5-14.0) % Plt Count (150-450) x10^3/uL MPV (7.5-11.0) fL Gran % (36.0-66.0) % Immature Gran % (Auto) (0.00-0.4) % Nucleat RBC Rel Count (0.00-0.1) % Eos # (Auto) (0-0.5) x10^3/uL Immature Gran # (Auto) (0.00-0.03) x10^3u/L Absolute Lymphs (auto) (1.0-4.6) x10^3/uL Absolute Monos (auto) (0.0-1.3) x10^3/uL Absolute Nucleated RBC (0.00-0.01) x10^3u/L Lymphocytes % (24.0-44.0) % Monocytes % (0.0-12.0) % Eosinophils % (0.00-5.0) % Basophils % (0.0-0.4) % Absolute Granulocytes (1.4-6.9) x10^3/uL Basophils # (0-0.4) x10^3/uL Sodium 136 L (137-145) mmol/L Potassium 3.4 L (3.5-5.1) mmol/L Chloride 101 (98-107) mmol/L Carbon Dioxide 26 (22-30) mmol/L Anion Gap 12.4 (5-15) MEQ/L BUN 86 H (9-20) mg/dL Creatinine 1.91 H (0.66-1.25) mg/dL Estimated GFR 34.8 ML/MIN Glucose 130 H (74-106) mg/dL POC Glucometer 473 H 129 H (74 to 106) mg/dL Calcium 9.3 (8.4-10.2) mg/dL Total Bilirubin 1.60 H (0.2-1.3) mg/dL AST 25 (17-59) U/L ALT 23 (0-50) U/L Alkaline Phosphatase 82 (38-126) U/L Serum Total Protein 6.9 (6.3-8.2) g/dL Albumin 3.8 (3.5-5.0) g/dL Micro Results-Entire Visit: Microbiology 09/15/23 17:46 Blood Culture - Preliminary Blood 09/15/23 17:35 Blood Culture - Preliminary Blood 09/15/23 17:00 Urine Culture - Final Clean Catch Midstream NO GROWTH Accuchecks Date 09/19/23 Date 09/19/23 Date 09/18/23 Time 12:23 Time 08:00 - Radiology Exams Ordered Rad Exams-Entire Visit: Radiology Procedures Category Date Time Status Ultrasound Gallbladder [GALLBLADDER] [US] Urgent Exams 09/18/23 14:19 Completed - Procedures and Test Procedures and Tests throughout Hospitalization: Therapy Orders & Screens 09/15/23 22:06 RT Screen per Nursing Assess ONCE Comment: Protocol Order Physician Instructions: Greater than 3 points order RT Admission Screen Reason For Exam: Triggered on Admission Diagnosis: renal failure; hypokalemia Diagnosis: renal failure; hypokalemia Pneumonia: No Home O2: No Asthma: No CHF: Yes Home CPAP/BIPAP: Yes Home Nebs/MDI: No Total Points: 8 09/15/23 22:49 Respiratory Therapy Assessment UD Comment: Diagnosis: renal failure; hypokalemia 09/15/23 22:56 BiPap/CPAP UD Comment: Diagnosis: renal failure; hypokalemia 09/17/23 02:56 EKG ROUTINE Comment: Diagnosis: renal failure; hypokalemia <RODO HEATH - Last Filed: 09/19/23 21:54> Discharge Exam General Appearance: mild distress Neurologic Exam: alert, oriented x 3, cooperative Eye Exam: PERRL Ears, Nose, Throat Exam: normal ENT inspection Neck Exam: normal inspection Respiratory Exam: normal breath sounds, lungs clear Cardiovascular Exam: regular rate/rhythm, normal heart sounds Gastrointestinal/Abdomen Exam: soft, normal bowel sounds, tenderness (LLQ), guarding (LLQ) Male Genitalia Exam: deferred Rectal Exam: deferred Wound Assessment: Skin/Wound Assessment Wound/Incision Assessment Start: 09/16/23 11:03 Text: Status: Active Freq: Q6H Protocol: Document 09/19/23 08:00 RB (Rec: 09/19/23 08:20 RB [id number]) Wound/Incision Assessment Left Medial Buttock Wound Assessment Shift Assessment Wound Type SEE BELOW Drainage Amount None Drainage Odor None/Absent Comment BARRIER CREAM APPLIED, 2CM X 1 CM STAGE II ALSO A 2CM X 1CM HEALING STAGE II PRESENT Wound Photo Photo Taken No <JOHN RODRIGUEZ - Last Filed: 09/19/23 11:34> Final Diagnosis/Problem List - Final Discharge Diagnosis/Problem (1) Hypokalemia Status: Acute Code(s): E87.6 - HYPOKALEMIA (2) Obesity (BMI 30.0-34.9) Status: Acute Code(s): E66.9 - OBESITY, UNSPECIFIED (3) Renal failure Status: Acute (4) Type II diabetes mellitus Status: Acute (5) Constipation Status: Chronic Code(s): K59.00 - CONSTIPATION, UNSPECIFIED (6) Abdominal pain Status: Acute Code(s): R10.9 - UNSPECIFIED ABDOMINAL PAIN (7) Elevated troponin Status: Acute Code(s): R79.89 - OTHER SPECIFIED ABNORMAL FINDINGS OF BLOOD CHEMISTRY (8) Leukocytosis Status: Acute Code(s): D72.829 - ELEVATED WHITE BLOOD CELL COUNT, UNSPECIFIED <JOHN RODRIGUEZ - Last Filed: 09/19/23 11:34> <JOHN RODRIGUEZ - Last Filed: 09/19/23 11:34> <RODO HEATH - Last Filed: 09/19/23 21:54> - Discharge Disposition: Home, Self-Care Condition: Fair Prescriptions: New Amoxicillin/Potassium Clav [Augmentin 500-125 Tablet] 1 each PO BID 10 Days #20 tablet Continue Ropinirole HCl 1 mg PO HS Carvedilol 12.5 mg [Coreg 12.5 mg] 12.5 mg PO BID Dapagliflozin Propanediol [Farxiga] 10 mg PO DAILY Potassium Chloride 20 meq PO BID Rosuvastatin Calcium 20 mg PO HS Zolpidem Tartrate 10 mg [Ambien 10 MG] 10 mg PO HS PRN PRN Reason: Insomnia Bumetanide 4 mg PO DAILY Insulin Glargine,Hum.rec.anlog [Toujeo Max Solostar] 45 units SQ QHS Ascorbic Acid [Vitamin C] 1 tab PO DAILY Multivit-Min/FA/Lycopen/Lutein [Centrum Silver Tablet] 1 tab PO DAILY Insulin Aspart [Novolog] 15 unit SQ UD Gabapentin 600 mg PO TID metOLazone [Metolazone] 5 mg PO UD Hydrocodone/Acetaminophen [Hydrocodone-Acetamin 7.5-325] 1 tab PO TID Bumetanide 2 mg PO LUNCH Vericiguat [Verquvo] 5 mg PO DAILY Instructions: Hypokalemia (DC), Kidney Failure (DC) Additional Instructions: Can use Miralax for constipation if needed OTC. [facility] TO ASSUME CARE Follow up with: LÓPEZ DE GUZMAN [Primary Care Provider] - NASEEM LOO [Family Provider] - ALYSON Encounter - ALYSON Encounter Attestation ALYSON Encounter Attestation: "MERRY Og andkarolinaiscussed pertinent aspects of their care with John Rodriguez and agree with the history, physical exam (any modifications based on my personal exam will be noted below), assessment, and plan as outlined in original note. Please see immediately below for my summary of findings and additional assessment and plan along with any meaningful corrections/explanations to the Subjective/Objective portions of the ALYSON note will be noted." My portion of the encounter took place via telemedicine. <RODO HEATH - Last Filed: 09/19/23 21:54>
[2023-09-19 12:25] VITALS: BP 128/75; O2SAT 96
--- NOTE | 2023-09-20 12:54 | CONS ---
CONSULT DATE: 09/18/2023 HISTORY: This is a patient who was seen today earlier by my partner and yesterday by my partner while I was in surgery. The patient had increased abdominal pain and I have been asked to come and see the patient. I reviewed my partner's notes as well as reviewed his CT scan and laboratory studies with both the patient, family and his nurse all at bedside. The patient got nauseated when he sat up. He had a small emesis. He is now laying in bed. He does have abdominal pain. PHYSICAL EXAM: On exam, his belly is soft. He is not tender at all on the right side. I palpated in his right upper and right lower quadrant and he had no pain with this. He is tender in his left lower quadrant but his abdominal exam is benign. He has no rebound. His white count did go up a little today. Vital signs rubin he is stable and he looks good. The Hospitalist has ordered an x-ray which I think is appropriate. We also ordered a right upper quadrant ultrasound due to findings of his gallbladder on CT scan and this was reviewed with him. I also reviewed his CT scan from yesterday with him which I had discussed initially with the primary team. It looks like he has some findings in the left colon that are definitely abnormal but hard to say whether this is related diverticula or whether this is a malignancy. I think this will be hard to determine outside of having a scope down the road. The patient does not want any procedures performed at this time. He does not want any anesthesia. He does have a complex medical history and currently also has pleural effusion, heart disease and heart failure as well as chronic kidney disease. We did have a good discussion with the patient and his family regarding the area of concern and everyone is on board with our current plan of getting x-ray and then taking it from there. His family has re-iterated again that his wishes are not to have any surgery and the patient agreed with this. At this point, we will wait for the x-ray to come back. Continue our supportive care which I think is appropriate and they will call my partner with the results of the x-ray later tonight when it returns if there are any concerns. Thank you for calling us. Please let us know if there are any further concerns on Herve Perez.
== END 2023-09-19 17:04 | disposition home or self-care (01) | DRG 641 ==
LOC: ED 16:15 → MED SURG 20:58 → OBSVTOIN 09-16 09:00
PROVIDERS: ADMIT Internal Medicine; ATTEND Internal Medicine
DX: E87.6 Hypokalemia (principal); I13.2 Hypertensive heart and chronic kidney disease with heart failure and with stage 5 chronic kidney disease, or end stage renal disease; N18.5 Chronic kidney disease, stage 5; N17.9 Acute kidney failure, unspecified; R79.89 Other specified abnormal findings of blood chemistry; D72.829 Elevated white blood cell count, unspecified; E11.22 Type 2 diabetes mellitus with diabetic chronic kidney disease; I50.9 Heart failure, unspecified; E66.9 Obesity, unspecified; K59.00 Constipation, unspecified; I25.10 Atherosclerotic heart disease of native coronary artery without angina pectoris; E78.5 Hyperlipidemia, unspecified; L89.322 Pressure ulcer of left buttock, stage 2; Z79.899 Other long term (current) drug therapy; Z20.828 Contact with and (suspected) exposure to other viral communicable diseases
CPT/HCPCS: 0241U; 20553; 36000; 36415; 64483; 64484; 71045; 72100; 74176; 76705; 77003; 80053; 81001; 82306; 82947; 83036; 83735; 84132; 84484; 85025; 85027; 86308; 87040; 87086; 93005; 93268; 94760; 96365; 96366; 96374; 96375; 99285; J0295; J1100; J1170; J1644; J1817; J2270; J2405; J3480; Q3014; Q9966; A9270-GY; G0378